=== PATIENT | male | born 1955 | race American Indian/Alaskan Native ===

== ENCOUNTER 2020-03-07 14:38 | Outpatient (REF) | payer MEDICARE, SELFPAY | END 2020-03-07 14:39 | disposition home or self-care (01) | LOC: HO.LAB 14:38 | PROVIDERS: Visit Provider Psychiatry & Neurology Neurology | DX: Q85.1 Tuberous sclerosis (principal) | CPT/HCPCS: 80185 ==

== ENCOUNTER 2021-05-10 16:09 | Outpatient (REF) | payer MEDICARE, SELFPAY ==
--- NOTE | ~2021-05-10 | XR_ITS ---
EXAMINATION: XR LUMBOSACRAL SPINE WITH OBLIQUES CLINICAL INFORMATION: Lower back pain. COMPARISON: 06/08/2019 TECHNIQUE: Lumbar spine, 5 views FINDINGS: The lumbar vertebra have well preserved height and alignment. No fracture or subluxation. The disc spaces are maintained with exception of chronic lvfj-ar-iawkovle disc space loss and anterior vertebral osteophyte formation at L5-S1. Again noted are chronic sclerotic foci of the visualized bones, likely secondary to the patient's tuberous sclerosis. Note that multiple sclerotic foci with the appearance of bone islands can be seen on prior CT images from 07/16/2006. Soft tissues are unremarkable. XR/XR lumbar spine 4V min IMPRESSION: * No evidence of fracture or malalignment of the lumbosacral spine. * Chronic mild-to moderate degenerative disc space loss at the L5-S1 level.
[2021-05-10 16:29] LABS: MANUAL DIFF FLAG NO
[2021-05-10 16:48] LABS: Basophils Percent Auto 0.4 % (0-2); Eosinophils Absolute Auto 0.1 X10*3/uL (0.0-0.4); Eosinophils Percent Auto 1.5 % (0-4); Hematocrit 36.7 % (42.0-52.0); Hemoglobin 12.6 g/dl (14.0-18.0); Imm Gran Abs Auto 0.02 X10*3/uL (0.00-0.03); Imm Gran Pct Auto 0.3 % (0.0-0.4); Lymphocytes Absolute Auto 1.8 X10*3/uL (1.2-4.9); Lymphocytes Percent Auto 25.1 % (20-40); Mean Corpuscular HGB Conc 34.3 g/dl (31.0-36.0); Mean Corpuscular Hemoglobin 31.4 pg (27.0-33.0); Mean Corpuscular Volume 91.5 fL (80.0-98.0); Mean Platelet Volume 9.8 fL (9.4-12.4); Monocytes Absolute Auto 0.6 X10*3/uL (0.1-1.2); Monocytes Percent Auto 7.7 % (2-11); Neutrophils Absolute Auto 4.7 x10*3/uL (2.0-8.3); Platelet Count 244 X10*3/uL (160-400); Red Blood Count 4.01 X10*6/uL (4.60-5.80); Red Cell Distribution Width 12.1 % (11.0-16.0); White Blood Count 7.2 X10*3/uL (4.8-10.8)
[2021-05-10 17:01] LABS: Alanine Aminotransferase 15 U/L (0-40); Albumin Level 4.5 g/dL (3.5-5.0); Alkaline Phosphatase 103 U/L (39-117); Anion Gap 13 (12-20); Aspartate Amino Transferase 17 U/L (5-37); Bilirubin Total 0.5 mg/dL (0.0-1.0); Blood Urea Nitrogen 14 mg/dL (9-16); Calcium 9.5 mg/dL (8.4-10.2); Carbon Dioxide 25 mmol/L (22-29); Chloride 108 mmol/L (96-108); Cholesterol 202 mg/dL; Estimated Glomerular Filt Rate > 60; Glucose Fasting 84 mg/dL (60-99); HDL Cholesterol 49 mg/dL; LDL Cholesterol Calculated 131 mg/dl; Potassium 3.8 mmol/L (3.3-5.1); Sodium 142 mmol/L (135-145); Total Protein 7.3 g/dL (6.5-8.0); Triglycerides 112 mg/dL
[2021-05-10 17:21] LABS: Prostate Specific Antigen Scr 2.28 ng/mL (<0.05-4.0); TSH reflex Free T4 1.42 uIU/mL (0.32-4.0)
[2021-05-10 17:24] LABS: T4 Thyroxine 5.5 ug/dL (4.5-12.0)
[2021-05-10 17:36] LABS: Phenytoin Dilantin 14.1 ug/mL (10.0-20.0)
[2021-05-10 17:37] LABS: Folate 8.9 ng/mL (> or = 4.0); Vitamin B12 173 pg/mL (200-900)
[2021-05-10 17:43] LABS: Erythrocyte Sedimentation Rate 2 MM/HR (0-15)
[2021-05-10 18:22] LABS: Appearance Urine CLEAR; Color Urine YELLOW; Glucose Urine UA NEG (NEG); Leukocyte Esterase Urine NEG (NEG); Nitrite Urine NEG (NEG); Urine Blood NEG (NEG); Urine Ketones NEG (NEG); Urine Protein NEG (NEG-TRACE)
[2021-05-12 17:37] LABS: Homocysteine 16.8 umol/L (<11.4)
[2021-05-13 15:31] LABS: Methylmalonic Acid 828 nmol/L (87-318)
== END 2021-05-10 16:10 | disposition home or self-care (01) ==
LOC: HO.XRAY 16:09
PROVIDERS: PCP Nurse Practitioner Family; Visit Provider Psychiatry & Neurology Neurology
DX: Z00.00 Encounter for general adult medical examination without abnormal findings (principal); Q85.1 Tuberous sclerosis; M54.40 Lumbago with sciatica, unspecified side; E53.8 Deficiency of other specified B group vitamins; Z12.5 Encounter for screening for malignant neoplasm of prostate
CPT/HCPCS: 36415; 72110; 80053; 80061; 80185; 81003; 82550; 82607; 82746; 83090; 83921; 84153; 84436; 84443; 85025; 85652

== ENCOUNTER 2022-11-06 15:48 | Outpatient (REF) | payer MEDICARE, SELFPAY ==
--- NOTE | ~2022-11-06 | XR_ITS ---
EXAMINATION: XR FOOT, LEFT CLINICAL INFORMATION: Swelling in second and third digit COMPARISON: None available. TECHNIQUE: AP, lateral, and oblique views of the left foot. FINDINGS: There is also soft tissue swelling of the forefoot. The bones are diffusely demineralized. There is periosteal reaction along the shaft of the second metatarsal which could represent a healing stress fracture. The third toe is flexed limiting evaluation of the toe. There is cockup deformity of one of the toes, likely the third toe. Small Achilles enthesophyte is noted. XR/XR foot LT 2V IMPRESSION: 1. Periosteal reaction along the shaft of the second metatarsal could represent a healing stress fracture. 2. Cockup deformity of one of the toes, likely the third toe. At the time of this dictation, PSA service contacted to alert the referring physician of critical findings.
[2022-11-06 16:06] LABS: MANUAL DIFF FLAG NO
[2022-11-06 17:05] LABS: Basophils Percent Auto 0.4 % (0-2); Eosinophils Absolute Auto 0.2 X10*3/uL (0.0-0.4); Eosinophils Percent Auto 2.3 % (0-4); Hematocrit 34.1 % (42.0-52.0); Hemoglobin 11.5 g/dl (14.0-18.0); Imm Gran Abs Auto 0.02 X10*3/uL (0.00-0.03); Imm Gran Pct Auto 0.3 % (0.0-0.4); Lymphocytes Absolute Auto 1.9 X10*3/uL (1.2-4.9); Lymphocytes Percent Auto 26.3 % (20-40); Mean Corpuscular HGB Conc 33.7 g/dl (31.0-36.0); Mean Corpuscular Hemoglobin 31.1 pg (27.0-33.0); Mean Corpuscular Volume 92.2 fL (80.0-98.0); Mean Platelet Volume 10.2 fL (9.4-12.4); Monocytes Absolute Auto 0.7 X10*3/uL (0.1-1.2); Monocytes Percent Auto 9.1 % (2-11); Neutrophils Absolute Auto 4.6 x10*3/uL (2.0-8.3); Neutrophils Percent Auto 61.6 % (45-73); Platelet Count 208 X10*3/uL (160-400); Red Cell Distribution Width 12.5 % (11.0-16.0); White Blood Count 7.4 X10*3/uL (4.8-10.8)
[2022-11-06 17:37] LABS: Appearance Urine Clear; Color Urine Yellow; Glucose Urine UA Negative (Negative); Leukocyte Esterase Urine Negative (Negative); Nitrite Urine Negative (Negative); PH 5.5 (5.0-9.0); Specific Gravity - Urine 1.025 (1.005-1.025); Urine Blood Negative (Negative); Urine Ketones Trace mg/dL (Negative); Urine Protein Trace mg/dL (Neg-Trace)
[2022-11-06 17:46] LABS: Alanine Aminotransferase 12 U/L (0-40); Alkaline Phosphatase 111 U/L (39-117); Anion Gap 10 (12-20); Aspartate Amino Transferase 14 U/L (5-37); Bilirubin Total 0.2 mg/dL (0.0-1.0); Blood Urea Nitrogen 17 mg/dL (9-16); Calcium 9.3 mg/dL (8.4-10.2); Carbon Dioxide 29 mmol/L (22-29); Chloride 109 mmol/L (96-108); Cholesterol 174 mg/dL; Estimated Glomerular Filt Rate > 60; Glucose Fasting 96 mg/dL (60-99); HDL Cholesterol 51 mg/dL; LDL Cholesterol Calculated 95 mg/dl; Potassium 3.8 mmol/L (3.3-5.1); Sodium 144 mmol/L (135-145); Total Protein 6.8 g/dL (6.5-8.0); Triglycerides 142 mg/dL
[2022-11-06 18:15] LABS: Folate 18.9 ng/mL (> or = 4.0); Prostate Specific Antigen Scr 2.94 ng/mL (<0.05-4.0); TSH reflex Free T4 1.28 uIU/mL (0.32-4.0); Vitamin B12 203 pg/mL (200-900)
== END 2022-11-06 15:49 | disposition home or self-care (01) ==
LOC: HO.LAB 15:48
PROVIDERS: PCP Nurse Practitioner Family; Visit Provider Psychiatry & Neurology Neurology
DX: Z00.00 Encounter for general adult medical examination without abnormal findings (principal); Z12.5 Encounter for screening for malignant neoplasm of prostate; E53.8 Deficiency of other specified B group vitamins; R56.9 Unspecified convulsions; Q85.1 Tuberous sclerosis; M77.42 Metatarsalgia, left foot; D64.9 Anemia, unspecified
CPT/HCPCS: 36415; 73620; 80053; 80061; 81003; 82607; 82746; 84153; 84443; 85025

== ENCOUNTER 2022-12-25 12:07 | Outpatient (REF) | payer MEDICARE, SELFPAY ==
--- NOTE | ~2022-12-25 | CT_ITS ---
EXAMINATION: CT head/brain wo/w IV con CLINICAL INFORMATION: TUBEROUS SCLEROSIS AND SEIZURES COMPARISON: CT head 02/11/2013 and MRI 02/02/2020 TECHNIQUE: Contiguous axial imaging was performed from the skull base to vertex without intravenous contrast. Sagittal and coronal reformatted images were obtained. This CT examination was performed using dose optimization techniques as appropriate, variously including the following: * Automated exposure control * Adjustment of mA and/or kV according to patient size (this includes techniques or standardized protocols for targeted exams where dose is matched to indication/reason for exam; i.e. extremities or head) Use of iterative reconstruction technique DLP: 1703.84 mGy-cm FINDINGS: Multiple scattered and partially calcified cortical/subcortical tubers as well as subependymal nodules related to reported history of tuberous sclerosis are better characterized on prior brain MRI. Please note that contrast-enhanced MRI would be more sensitive modality for enlarging subependymal nodules/development of a subependymal giant cell astrocytoma. Stable plaque-like thickening along the left high parietal scalp, which may reflect a fibrous cephalic plaque related to tuberous sclerosis complex. Increased size of a 1.4 cm centrally hypodense nodule within the right supraorbital paramedian scalp/right aspect of the nasal bridge, previously 0.5 cm, with bulging of the overlying skin contour may reflect a dermatological manifestation of tuberous sclerosis complex and can be correlated with direct inspection. The ventricles are stable in caliber without significant volume loss or hydrocephalus. No territorial loss of mitchell-white differentiation. No acute intracranial hemorrhage or extra-axial fluid collection. No significant mass effect, or herniation pattern. The orbits are grossly normal. Scattered mild paranasal sinus mucosal disease with retention cysts in the right maxillary sinus alveolar recess. Redemonstrated suspected 1.5 cm incisive canal cyst. Degenerative changes of the bilateral temporomandibular joints. Scattered sclerotic foci throughout the osseous structures, presumably related to tuberous sclerosis complex CT/CT head/brain wo/w IV con IMPRESSION: No acute intracranial abnormality. Chronic stigmata of tuberous sclerosis as above, better characterized on prior brain MRI. Please note that contrast-enhanced MRI would be more sensitive modality for enlarging subependymal nodules/development of a subependymal giant cell astrocytoma. Increased size of a 1.4 cm centrally hypodense nodule within the right supraorbital paramedian scalp/right aspect of the nasal bridge, previously 0.5 cm, may reflect a dermatological manifestation of tuberous sclerosis complex and can be correlated with direct inspection.
[2022-12-25 12:37] LABS: Blood Urea Nitrogen 19 mg/dL (9-16); Estimated Glomerular Filt Rate > 60
[2022-12-25] MEDS: iohexoL 350 MG/ML 100 ML INFUS..BTL 85 ML IV (13:42)
== END 2022-12-25 12:08 | disposition home or self-care (01) ==
LOC: HO.CT 12:07
PROVIDERS: PCP Nurse Practitioner Family; Visit Provider Psychiatry & Neurology Neurology
DX: R56.9 Unspecified convulsions (principal)
CPT/HCPCS: 36415; 70470; 82565; 84520; Q9967

== ENCOUNTER 2023-01-07 08:57 | Outpatient (AMB) | payer MEDICARE, SELFPAY ==
[2023-01-07 09:02] VITALS: BP 128/70; PULSE 73; O2SAT 97; BMI 26.7
--- NOTE | 2023-01-07 09:02 | A.OFFPC_ITS ---
Vital Signs 01/07/23 09:02 Height 5 ft 10 in Weight 186 lb BMI 26.7 BP 128/70 Blood Pressure Location Rt brachial Position Sitting Pulse 73 Pulse Source Pulse Oximeter Pulse Oximetry (%) 97 Oxygen Delivery Method Room Air Intake Visit Reasons: f/u reschedule from 01/02 Allergies No Known Allergies Allergy (Verified 01/07/23 09:05) Medication List - Last Reconciled 01/07/23 by LIS Gutiérrez-FAHAD finasteride 5 mg PO DAILY folic acid 1 mg PO DAILY lisinopril 10 mg PO DAILY 90 days rddajfpo-zmm-ppabg-vit K-lycop 400-20-370 mcg (One-A-Day Men's 50 Plus (with vitamin K)) 1 tab PO DAILY phenytoin 50 mg PO QAM phenytoin sodium extended 100 mg PO TID tamsulosin 0.4 mg PO BEDTIME Tobacco use date assessed: 01/07/23 Fall risk assessment: 2 + Falls in past year Last assessed Fall Risk: 01/07/23 Dental Screening Dental Screen Date: 01/07/23 Did you have a dental visit in the last 12 months?: No Did you have a dental problem in the last 6 months where you did not have access to dental care?: No Was dental information given to patient?: Patient has dentist HPI f/u reschedule from 01/02 HPI Details Pt c/o some shortness of breath with exertion recently, after bringing trash outside. He denies any chest pain, cough, and dizziness. Will do an EKG in office. Will also order chest xr. Pt reports a large cystic lesion between his eyebrows. Will refer to general surgery. Pt follows up with neurology due to weakness in his lower extremities. [facility] Medical History (Updated 01/07/23 @ 09:26 by LIS Gutiérrez-FAHAD) Chronic radicular pain of lower back Excessive cerumen in both ear canals HTN (hypertension) Low vitamin B12 level Lumbar disc disease Seizure Tuberous sclerosis URI (upper respiratory infection) Social History Housing: Other (Lives with a Friend ) Patient Tobacco Use Status: Former Tobacco user Years Smoked: quit 1987 e-Cigarette/Vaping Use: Never Used Second Hand Smoke Exposure: No service: No Current occupational status: retired Cognitive needs: No Hearing needs: No Vision needs: No Questionnaire Thrive Questionnaire Date Thrive assessed: 07/02/22 LIVE-7 AMB Questionnaire LIVE-7 Date LIVE - 7 assessed: 07/02/22 Source: Developed by Drs. Ayden Terry, Praveena Broderick, Alexei Tinsley and colleagues, with an educational wilfrido from [employer]. Review of Systems Const Reports as per HPI Physical exam (Primary Care) Vital Signs: Last Vital Signs Pulse 73 01/07/23 09:02 BP 128/70 01/07/23 09:02 Pulse Ox 97 01/07/23 09:02 Oxygen Delivery Method Room Air 01/07/23 09:02 BMI result Body Mass Index 26.7 Tobacco/Smoking Status: Tobacco use Status Tobacco use date assessed 01/07/23 01/07/23 09:09 Patient Tobacco Use Status Former Tobacco user 01/07/23 09:02 e-Cigarette/Vaping Use Never Used 01/07/23 09:02 Thrive Assessment: Date of Thrive Assessment Date Thrive assessed 07/02/22 01/07/23 09:02 Const General: cooperative Orientation/consciousness: patient oriented x3 Limitations: ambulation with cane Resp Effort & Inspection: normal respiratory effort Auscultation: clear to auscultation bilaterally Cardio Rate: regular rate Rhythm: regular rhythm Heart sounds: S1 normal heart sound present and S2 normal heart sound present Skin Other: large cystic lesion between eyebrows Neuro General: patient oriented x3 Psych Appearance: grossly normal Mental Status: mental status grossly normal Speech and movement: Normal speech and movement present Affect: normal affect Attitude: cooperative Thought process: Normal thought process present Thought content: Normal thought content present Insight: Good insight present (Psych) Judgement: Good judgement present (Psych) Assessment and Plan Assessment & Plan (1) Epidermoid cyst of face: Code(s): L72.0 - Epidermal cyst Plan: Referred to general surgery (2) SOB (shortness of breath): Code(s): R06.02 - Shortness of breath Plan The patient agreed to the use of a administrative medical director for this encounter. Scribed for MARLENI Rivera by Lora Bermudez administrative medical director, on 01/07/2023 at 09:15 EST. Orders: Orders XR chest 2V Today R06.02 - Shortness of breath AMB EKG-In Office Today R06.02 - Shortness of breath Referrals General Surgery Referral L72.0 - Epidermal cyst Coding Level of Care Code Est Pt Level 3 (41919) Diagnoses Epidermoid cyst of face L72.0 SOB (shortness of breath) R06.02
== END 2023-01-07 09:41 | disposition home or self-care (01) ==
PROVIDERS: PCP Nurse Practitioner Family; Visit Provider Nurse Practitioner Family
DX: L72.0 Epidermal cyst (principal); R06.02 Shortness of breath
CPT/HCPCS: 99213

== ENCOUNTER 2023-01-07 09:43 | Outpatient (REF) | payer MEDICARE, SELFPAY ==
--- NOTE | ~2023-01-07 | XR_ITS ---
EXAMINATION: XR CHEST CLINICAL INFORMATION: Shortness of breath. COMPARISON: Chest radiographs dated 03/30/2009. TECHNIQUE: 2 views of the chest were obtained. FINDINGS: No significant abnormality is noted involving the heart, lungs, mediastinum, bony thorax or soft tissues. XR/XR chest 2V IMPRESSION: No acute cardiopulmonary process.
== END 2023-01-07 09:44 | disposition home or self-care (01) ==
LOC: HO.HMGCX 09:43
PROVIDERS: PCP Nurse Practitioner Family; Visit Provider Nurse Practitioner Family
DX: R06.02 Shortness of breath (principal)
CPT/HCPCS: 71046

== ENCOUNTER 2023-07-03 14:52 | Outpatient (REF) | payer OTHER, SELFPAY ==
[2023-07-03 15:48] LABS: Phenytoin Dilantin 14.3 ug/mL (10.0-20.0)
== END 2023-07-03 14:53 | disposition home or self-care (01) ==
LOC: HO.LAB 14:52
PROVIDERS: PCP Nurse Practitioner Family; Visit Provider Psychiatry & Neurology Neurology
DX: G40.909 Epilepsy, unspecified, not intractable, without status epilepticus (principal)
CPT/HCPCS: 36415; 80185

== ENCOUNTER 2023-10-24 10:01 | Outpatient (AMB) | payer OTHER, SELFPAY ==
--- NOTE | 2023-10-24 10:06 | MHC.PC.OV ---
Vital Signs 10/24/23 10:09 10/24/23 10:28 Height 5 ft 10 in Weight 182 lb BMI 26.1 BP 160/80 H 138/80 Blood Pressure Location Rt brachial Rt brachial Position Sitting Sitting Pulse 76 Pulse Source Pulse Oximeter Pulse Oximetry (%) 97 Oxygen Delivery Method Room Air Intake Visit Reasons: 6 month f/u Allergies No Known Allergies Allergy (Verified 10/24/23 12:09) Medication List - Last Reconciled 10/24/23 by MARLENI Gutiérrez finasteride 5 mg PO DAILY folic acid 1 mg PO DAILY lisinopril 20 mg PO DAILY 90 days kacwrxds-hso-clmln-vit K-lycop 400-20-370 mcg (One-A-Day Men's 50 Plus (with vitamin K)) 1 tab PO DAILY phenytoin 50 mg PO QAM phenytoin sodium extended 100 mg PO TID tamsulosin 0.4 mg PO BEDTIME Tobacco use date assessed: 01/07/23 Dental Screening Dental Screen Date: 10/24/23 Did you have a dental visit in the last 12 months?: No Did you have a dental problem in the last 6 months where you did not have access to dental care?: No Was dental information given to patient?: No HPI 6 month f/u HPI Details HTN: Blood pressure is slightly elevated, managed with lisinopril 10mg. Will increase lisinopril from 10mg to 20mg. Denies chest pain, shortness of breath, headache, dizziness, and blurred vision. Encouraged pt to get labs drawn. Pt reports that yesterday he started seeing black dots in his vision. He reports going to sleep and later woke up with normal vision. Pt has a hx of seizures and is not sure if this was seizure activity. Pt is following up with neurology. [facility] Medical History (Updated 10/24/23 @ 10:35 by MARLENI Gutiérrez) Prostate cancer Chronic radicular pain of lower back Lumbar disc disease Excessive cerumen in both ear canals Low vitamin B12 level Seizure HTN (hypertension) URI (upper respiratory infection) Tuberous sclerosis Social History Housing: Other (Lives with a Friend ) Patient Tobacco Use Status: Former Tobacco user Years Smoked: quit 1987 e-Cigarette/Vaping Use: Never Used Second Hand Smoke Exposure: No service: No Current occupational status: retired Cognitive needs: No Hearing needs: No Vision needs: No Questionnaire PHQ-9 Over the last 2 weeks, how often have you been bothered by any of the following problems? 31076 - PHQ-9 Billing: Patient declined-do not bill Source: Developed by Praveena Pendleton Kurt Kroenke and colleagues, with an educational wilfrido from [employer] Thrive Questionnaire Date Thrive assessed: 07/02/22 LIVE-7 AMB Questionnaire LIVE-7 Date LIVE - 7 assessed: 07/02/22 Source: Developed by Praveena Pendleton, Alexei Tinsley and colleagues, with an educational wilfrido from [employer] LIVE-7 Assessment Billing LIVE-7 Assessment Tool: pt declined-do not bill Review of Systems Const Reports as per HPI Physical exam (Primary Care) Vital Signs: Last Vital Signs Pulse 76 10/24/23 10:09 BP 160/80 H 10/24/23 10:09 Pulse Ox 97 10/24/23 10:09 Oxygen Delivery Method Room Air 10/24/23 10:09 BMI result Body Mass Index 26.1 Tobacco/Smoking Status: Tobacco use Status Tobacco use date assessed 01/07/23 10/24/23 10:07 Patient Tobacco Use Status Former Tobacco user 10/24/23 10:07 e-Cigarette/Vaping Use Never Used 10/24/23 10:07 Thrive Assessment: Date of Thrive Assessment Date Thrive assessed 07/02/22 10/24/23 10:07 Const General: cooperative Orientation/consciousness: patient oriented x3 Resp Effort & Inspection: normal respiratory effort Auscultation: clear to auscultation bilaterally Cardio Rate: regular rate Rhythm: regular rhythm Heart sounds: S1 normal heart sound present and S2 normal heart sound present Neuro General: patient oriented x3 Extrem Right lower extremity: no edema Left lower extremity: no edema Psych Appearance: grossly normal Mental Status: mental status grossly normal Speech and movement: Normal speech and movement present Affect: normal affect Attitude: cooperative Thought process: Normal thought process present Thought content: Normal thought content present Insight: Good insight present (Psych) Judgement: Good judgement present (Psych) Assessment and Plan Assessment & Plan (1) HTN (hypertension): Code(s): I10 - Essential (primary) hypertension Plan: Increasing lisinopril from 10mg to 20mg (2) History of seizures: Code(s): Z87.898 - Personal history of other specified conditions Plan: Following up with neurology Plan The patient agreed to the use of a medical assistant float for this encounter. Scribed for LIS Rivera-FAHAD by Lora Bermudez medical assistant float, on 10/24/2023 at 10:20 EST. Orders: Orders Lipid Panel Today I10 - Essential (primary) hypertension Comprehensive [place]. Panel Fast Today I10 - Essential (primary) hypertension Medications: Changed From lisinopril 10 mg PO DAILY 90 days 90 tabs 1RF To lisinopril 20 mg PO DAILY 90 days 90 tabs 1RF Coding Level of Care Code Est Pt Level 3 (45417) Diagnoses HTN (hypertension) I10 History of seizures Z87.898
[2023-10-24 10:09] VITALS: BP 160/80; PULSE 76; O2SAT 97; BMI 26.1
[2023-10-24 10:28] VITALS: BP 138/80
== END 2023-10-24 10:38 | disposition home or self-care (01) ==
LOC: HO.HMGC 10:01
PROVIDERS: PCP Nurse Practitioner Family; Visit Provider Nurse Practitioner Family
DX: I10 Essential (primary) hypertension (principal); Z87.898 Personal history of other specified conditions
CPT/HCPCS: 99213

== ENCOUNTER 2023-11-18 10:56 | Outpatient (AMB) | payer OTHER, SELFPAY ==
--- NOTE | 2023-11-18 11:06 | AM.OFFWIN_ITS ---
Intake Vital Signs 11/18/23 11:07 Height 5 ft 10 in Weight 181 lb BMI 26.0 BP 140/70 H Blood Pressure Location Lt brachial Position Sitting Pulse 68 Pulse Source Pulse Oximeter Temp 97.3 F Temp Source Temporal Artery Scan Pulse Oximetry (%) 98 Oxygen Delivery Method Room Air Intake Visit Reasons: EP Right foot pain/swelling Intake Note: pt is here today for rt foot pain swelling started 1 week ago Patient Tobacco Use Status: Former Tobacco user Allergies No Known Allergies Allergy (Verified 11/18/23 11:25) Do you need a note to return to daycare/school/sports/work: No HPI HPI Comments History of Present Illness Details Patient is a 68-year-old male who uses a cane at baseline presenting with 5 days of right foot swelling and pain. He states 5 days ago, he was standing at the counter and he is unsure exactly what happened but thinks his leg gave in any probably twisted his ankle. He was able to walk on it but sat down for a little while and noticed it was very swollen. He has been using ice and cold water since then but he states the pain is not improving. He states the swelling has gone down. He is also asking for an upright walker because he does not think his cane is enough to support him at this point. [facility] Medical History (Updated 11/18/23 @ 12:04 by Bridgette Morse PA-C) Prostate cancer Chronic radicular pain of lower back Lumbar disc disease Excessive cerumen in both ear canals Low vitamin B12 level Seizure HTN (hypertension) URI (upper respiratory infection) Tuberous sclerosis Social History Housing: Other (Lives with a Friend ) Patient Tobacco Use Status: Former Tobacco user Years Smoked: quit 1987 e-Cigarette/Vaping Use: Never Used Second Hand Smoke Exposure: No service: No Current occupational status: retired Cognitive needs: No Hearing needs: No Vision needs: No Review of Systems Const All systems reviewed & are unremarkable except as noted in HPI and below Physical Exam Vital Signs: Last Vital Signs Temp 97.3 F 11/18/23 11:07 Pulse 68 11/18/23 11:07 BP 140/70 H 11/18/23 11:07 Pulse Ox 98 11/18/23 11:07 Oxygen Delivery Method Room Air 11/18/23 11:07 BMI result Body Mass Index 26.0 Const General: cooperative, healthy appearing, comfortable, no acute distress and well developed Orientation/consciousness: patient oriented x3 Limitations: ambulation with cane Eyes General: appearance normal, both eyes and all related structures Resp Effort & Inspection: normal respiratory effort and able to speak in complete sentences Neuro General: patient oriented x3 Extrem Right lower extremity: ankle (and right foot) Details: tenderness, swelling, normal ROM and ecchymosis (lateral ankle); no unusual warmth, no abrasions, no lacerations, no foreign bodies, no penetrating wound and achilles tendon exam normal Assessment & Plan Assessment & Plan (1) Right ankle sprain: Code(s): S93.401A - Sprain of unspecified ligament of right ankle, initial encounter Qualifiers: Encounter type: initial encounter Involved ligament of ankle: anterior talofibular ligament Qualified Code(s): S93.491A - Sprain of other ligament of right ankle, initial encounter Plan: Will get x-ray to rule out any fracture though unlikely with mechanism of injury. Advised RICE and wrapped with Geo bandage. Send note to PCP for ?upr ight walker ?. Offered patient crutches but he declined stating he was fine walking with his cane. Plan see above Orders: Orders XR ankle RT min 3V Today S93.491A - Sprain of other ligament of right ankle, initial encounter Coding Level of Care Code Est Pt Level 4 (24231) Diagnoses Sprain of anterior talofibular ligament of right ankle, initial encounter S93 .491A Encounter type: initial encounter Involved ligament of ankle: anterior talofibular ligament
[2023-11-18 11:07] VITALS: BP 140/70; PULSE 68; TEMP 36.3; O2SAT 98; BMI 26.0
== END 2023-11-18 12:32 | disposition home or self-care (01) ==
PROVIDERS: PCP Nurse Practitioner Family; Visit Provider Physician Assistant
DX: S93.491A Sprain of other ligament of right ankle, initial encounter (principal)
CPT/HCPCS: 99213

== ENCOUNTER 2023-11-18 12:06 | Outpatient (REF) | payer OTHER, SELFPAY ==
--- NOTE | ~2023-11-18 | XR_ITS ---
EXAMINATION: XR ANKLE, RIGHT CLINICAL INFORMATION: Right ankle ligament sprain. COMPARISON: None available. TECHNIQUE: AP, lateral, and mortise views of the right ankle. FINDINGS: Medial tibial stabilization plate with multiple fixation screws. Additional medial malleolar and tibial plafond orthopedic screws. No hardware fracture. No perihardware lucency to suggest loosening or infection. There appears to be a healed medial malleolar fracture. No acute fracture or dislocation. The ankle mortise is maintained. Moderate tibiotalar joint space narrowing with subchondral sclerosis and marginal osteophytes. No discrete talar osteochondral lesion. Small plantar and dorsal calcaneus spurs. Corticated ossification along the dorsal aspect of the navicular head measuring up to 0.5 cm which could represent a remote, unfused fracture fragment. Prominent circumferential soft tissue swelling. XR/XR ankle RT min 3V IMPRESSION: 1. Medial tibial ORIF without evidence of complication. Healed medial malleolar fracture. 2. Moderate tibiotalar osteoarthritis. 3. Prominent circumferential soft tissue swelling without acute fracture or dislocation. 4. Small plantar and dorsal calcaneus spurs. Corticated ossification along the dorsal aspect of the navicular head measuring up to 0.5 cm which could represent a remote, unfused fracture fragment.
== END 2023-11-18 12:07 | disposition home or self-care (01) ==
LOC: HO.HMGCX 12:06
PROVIDERS: PCP Nurse Practitioner Family; Visit Provider Physician Assistant
DX: S93.491A Sprain of other ligament of right ankle, initial encounter (principal)
CPT/HCPCS: 73610

== ENCOUNTER 2024-01-01 14:10 | Outpatient (REF) | payer OTHER, SELFPAY ==
[2024-01-01 16:24] LABS: Phenytoin Dilantin 18.3 ug/mL (10.0-20.0)
== END 2024-01-01 14:11 | disposition home or self-care (01) ==
LOC: HO.LAB 14:10
PROVIDERS: PCP Nurse Practitioner Family; Visit Provider Registered Nurse
DX: G40.909 Epilepsy, unspecified, not intractable, without status epilepticus (principal)
CPT/HCPCS: 36415; 80185

== ENCOUNTER 2024-03-24 17:24 | Inpatient (IN) | payer MEDICARE, SELFPAY ==
[2024-03-24] VITALS (8 sets, daily range): BP systolic 125–145; BP diastolic 64–79; PULSE 82–104; RESP 16–18; TEMP 36.5–37.4; O2SAT 95–100; BMI 26.6
--- NOTE | ~2024-03-24 | XR_ITS ---
EXAMINATION: XR CHEST CLINICAL INFORMATION: Dizziness, fall, weak COMPARISON: None available. TECHNIQUE: 2 views of the chest were obtained. FINDINGS: No significant abnormality is noted involving the heart, lungs, mediastinum, bony thorax or soft tissues. XR/XR chest 2V IMPRESSION: Unremarkable examination. Electronically signed by: Robert Garcia DO 03/24/2024 09:50 PM EDT RP
--- NOTE | ~2024-03-24 | CT_ITS ---
EXAMINATION: CT HEAD WITHOUT CONTRAST CT FACIAL BONES WITHOUT CONTRAST CT CERVICAL SPINE WITHOUT CONTRAST CLINICAL INFORMATION: Fall. Head injury. History of tuberous sclerosis. COMPARISON: CT head from 12/25/2022. TECHNIQUE: Imaging was performed from the skull base to vertex without intravenous administration of contrast. In addition, helical noncontrast CT imaging was acquired through the cervical spine and facial bones and source images were reviewed along with axial reconstructions and sagittal and coronal MPRs. This CT examination was performed using dose optimization techniques as appropriate, variously including the following: *Automated exposure control. *Adjustment of mA and/or kV according to patient size (this includes techniques or standardized protocols for targeted exams where dose is matched to indication/reason for exam; i.e. extremities or head). *Use of iterative reconstruction technique. DLP: 1544 mGy-cm FINDINGS: Head: There is no evidence of acute intracranial hemorrhage or edematous territorial infarction. Cohen-white matter differentiation is preserved. A few foci of hypoattenuation in the periventricular and deep white matter are consistent with mild microangiopathy. Chronic coarse calcifications scattered throughout the bilateral cerebral hemispheres. The ventricles are normal in morphology and size. No evidence for obstructive hydrocephalus. No abnormal mass effect or midline shift. No extra-axial fluid collections. Small subgaleal hematoma along the left posterior vertex, measuring up to 0.2 cm in depth. No associated acute osseous abnormalities. Persistent metopic suture. Multifocal small sclerotic foci throughout the osseous calvarium. Maxillofacial Bones: Moderate edema/hematoma along the nasal bridge. Minimally displaced anterior left nasal bone fracture. No evidence of additional maxillofacial bone fractures. The zygomatic arches remain intact. The nasal septum remains midline. No evidence of mandibular or maxillary fracture. The mandibular condyles remain well-seated in their respective temporal articular grooves. Mild degenerative arthropathy of the temporomandibular joints. Normal appearance of the intraconal and extraconal fat. No evidence of traumatic injury to the extraocular musculature or globes. Mild mucosal thickening of the paranasal sinuses. The mastoid air cells and middle ear cavities are clear. No layering fluid collections. The patient is edentulous. 1.5 cm incisive canal stenosis. Cervical Spine: The atlantooccipital and atlantoaxial articulations remain well aligned. Moderate degenerative arthropathy of the atlantodental articulation. Mild reversal the normal cervical lordosis. Otherwise, there is anatomic alignment of the vertebral bodies and posterior elements. No evidence of acute fracture or subluxation. The vertebral body heights are maintained. Advanced degenerative disc disease from C4-C7. Moderate degenerative disc disease at all additional levels. Facet and uncovertebral joint arthropathy leads to osseous encroachment on the neural foramina from C3-T1. Chronic patchy sclerotic lesions throughout the osseous structures. There is no prevertebral soft tissue swelling. Multiple subcentimeter hypoattenuating nodules in the thyroid gland (no follow-up imaging recommended based on current guidelines at the time of examination). The remaining cervical soft tissues are within normal limits. The lung apices demonstrate no abnormalities. CT/CT cervical spine wo IV con IMPRESSION: 1. No evidence of acute intracranial hemorrhage or edematous territorial infarction. Mild underlying microangiopathy. 2. No evidence of acute fracture or traumatic subluxation of the cervical spine. 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 3. Minimally displaced anterior left nasal bone fracture. Moderate edema/hematoma along the nasal bridge. 4. Small left posterior scalp hematoma without associated osseous abnormalities. 5. Chronic coarse calcifications scattered throughout the bilateral cerebral hemispheres. Chronic patchy sclerotic lesions throughout the osseous structures. Findings are suggestive of sequela of the patient's underlying tumor sclerosis. Electronically signed by: Sedrick Morales DO 03/24/2024 07:02 PM EDT
--- NOTE | ~2024-03-24 | US_ITS ---
EXAMINATION: US RETROPERITONEAL LIMITED (RENAL ONLY) CLINICAL INFORMATION: Sepsis. Urinary retention. Rule out hydronephrosis/abscess. COMPARISON: Ultrasound abdomen complete 01/20/2020; CT abdomen and pelvis dated 07/16/2006. TECHNIQUE: Real-time imaging of the kidneys. FINDINGS: RIGHT KIDNEY: 12.1 x 5.5 x 4.7 cm (SAG x AP x TRV). The kidney is normal in size, contour, and echogenicity. Renal cortical thickness is normal. No hydronephrosis. At the lower pole, a 6 mm nonobstructing calculus is seen. At the upper pole, a 2.4 x 1.6 x 2.0 cm, without associated color Doppler flow. On the ultrasound examination of 01/20/2020, this measures 2.2 x 2.4 x 2.4 cm. LEFT KIDNEY: 11.1 x 5.2 x 4.3 cm (SAG x AP x TRV). The kidney is normal in size, contour, and echogenicity. Renal cortical thickness is normal. No renal calculi or hydronephrosis. There are multiple benign, simple cysts, the largest at the lower pole measuring 1.0 cm these require no imaging follow-up. US/US renal BI IMPRESSION: 1. There is a continued stable right renal upper pole mass lesion. The interim stability of the ultrasound examination 01/20/[address] examination of 07/16/2006 suggests a benign etiology. 2. A 6 mm nonobstructing right lower pole calculus is seen. Electronically signed by: Maninder Dubose MD 03/26/2024 06:01 PM EDT
--- NOTE | 2024-03-24 17:36 | ED_ITS ---
HPI - Fall General Chief Complaint: Fall Stated Complaint: FALL, HIT NOSE ON DESK, VOMITING AFTER FALL Time Seen by Provider: 03/24/24 17:27 Source: patient and EMS Mode of arrival: EMS Limitations: no limitations History of Present Illness HPI Narrative: Patient is a 68-year-old male with past medical history of prostate cancer, chronic lumbar radiculopathy due to DJD, seizure disorder on phenytoin, hypertension, tuberous sclerosis who presents emergency department via EMS for evaluation. He reports that he got out of bed this afternoon to go and use the bathroom. He states ?I just got dizzy I guess and I fell?. Reports that he fell from a standing position striking his nose onto the corner of his desk and subsequently landing onto the floor. He had some bleeding from the nose that has since resolved. He denies any head strike or loss of consciousness. He denies the use of anticoagulants. He reports that he yelled out to his roommate to call 911 and he was ultimately brought to the emergency department. There was no reported him being postictal, he does not believe he seizure, no bladder bowel dysfunction, states he typically knows after he had a seizure. He denies any dizziness as this time, denies any chest pain shortness of breath or difficulty breathing. Related Data Home Medications ?Medication ?Instructions ?Recorded ?Confirmed phenytoin sodium extended 100 mg 100 mg PO TID 05/09/21 10/24/23 capsule folic acid 1 mg tablet 1 mg PO DAILY 05/02/22 10/24/23 tamsulosin 0.4 mg capsule 0.4 mg PO BEDTIME 05/02/22 10/24/23 amhcumrtuyai-pwv-yieug acid-vit 1 tab PO DAILY 07/02/22 10/24/23 K-lycop 400 mcg-20 mcg-370 mcg tablet (One-A-Day Men's 50 Plus (with vitamin K)) phenytoin 50 mg chewable tablet 50 mg PO QAM 01/07/23 10/24/23 Previous Rx's ?Medication ?Instructions ?Recorded lisinopril 20 mg tablet 20 mg PO DAILY 90 days #90 tabs 10/24/23 walker #1 ea 11/18/23 finasteride 5 mg tablet 5 mg PO DAILY #90 tabs 02/21/24 Allergies Allergy/AdvReac Type Severity Reaction Status Date / Time No Known Allergies Allergy Verified 03/24/24 17:38 Review of Systems 2 Review of Systems: Yes all other systems are reviewed and are negative [facility] Past Medical History Attestation statement: The following information was validated with the patient. Medical History Prostate cancer Chronic radicular pain of lower back Lumbar disc disease Excessive cerumen in both ear canals Low vitamin B12 level Seizure HTN (hypertension) URI (upper respiratory infection) Tuberous sclerosis Social History Social History Housing: Other (Lives with a Friend ) Patient Tobacco Use Status: Former Tobacco user Years Smoked: quit 1988 Smoked in Last 30 Days: No e-Cigarette/Vaping Use: Never Used Second Hand Smoke Exposure: No Use of substances other than those prescribed or required for medical reasons: No Advance Directives: No Advance Directives Information Provided: Yes Do you have a plan to hurt others: No Plan service: No Current occupational status: retired Cognitive needs: No Hearing needs: No Vision needs: No Physical Exam 2 Vital Signs: Vital Signs: Last Vital Signs Temp 99.3 F 03/24/24 23:31 Pulse 95 03/24/24 23:31 Resp 18 03/24/24 23:31 BP 125/74 03/24/24 23:31 Pulse Ox 97 03/24/24 23:31 O2 Del Method Room Air 03/24/24 23:31 BMI result Body Mass Index 26.6 Appearance: Alert.?Oriented to person, place and time. No acute distress.?Normal affect. Head: Normocephalic Eyes: Pupils equal, round and reactive to light. EOMI. Conjunctiva and sclera normal? No Marinelli sign noted. No raccoon eyes noted ENT: No septal hematoma, nares patent bilaterally. Dried blood at the external nares. External auditory canal normal tympanic membrane pearly mitchell and intact bilaterally. Dentition normal, no fractured teeth. No lesions or lacerations of oropharynx. Uvula midline. Moist mucous membranes. Neck: Normal inspection.? Neck supple.??No palpable tenderness, step-off, deformities. CVS: Heart sounds normal. Normal heart rate and rhythm.? Pulses normal.?? Respiratory: No respiratory distress.? Lung sounds clear to auscultation bilaterally?? Abdomen: Soft and non-tender. Normoactive bowel sounds. ?? Skin: Skin warm and dry.? Normal skin color.? .?? Extremities: No lower extremity edema.? Moving bilateral upper and lower extremities with full range of motion to all joints no reported pain with movement no obvious deformities, extremities all neurovascularly intact distally Neuro: Moves all extremities spontaneously. Sensation intact bilaterally. CN II- XII intact. No focal neuro deficits. Course Reevaluation(s) Reevaluation #1: CT of the head cervical spine without acute intracranial pathology or acute fracture/subluxation of the cervical spine. CT reveals minimally displaced anterior left nasal bone fracture, on evaluation does not have septal hematoma or acute abnormality, for which he will require to be referred to ENT. Upon re- evaluation he continues to be profoundly dizzy, upon standing is not able to really maintain his balance. He does use a cane at baseline, but regardless despite support continues to be balance. At bedside evaluation cerebellar function testing appears normal. Given his preceding dizziness prior to the fall times concerned that this may potentially be a cerebellar stroke versus exacerbated dizziness from concussion syndrome. Do not feel he is able to return home safely at this time. Urinalysis remains pending. Will speak with hospitalist for hospital admission Reevaluation #2: Urinalysis has resulted at this time, infection is suspected consistent with UTI covering with Rocephin. He has no hypotension, low suspicion for severe sepsis, lactic acid blood cultures to be obtained. Time: 23:06 Medications Administered Generic Name Dose Route Start Last Admin Trade Name Freq PRN Reason Stop Dose Admin Ceftriaxone Sodium 1 gm 03/24/24 23:00 03/25/24 00:15 Ceftriaxone Sodium 1 Gm Vial IVPUSH 1 gm Q24H JUDITH Administration Sodium Chloride 3 ml 03/25/24 00:00 03/25/24 00:11 0.9 % Sodium Chloride Flush 3 Ml Syringe IVFLUSH 3 ml QSHIFT JUDITH Administration Discontinued Medications Generic Name Dose Route Start Last Admin Trade Name Freq PRN Reason Stop Dose Admin Lactated Ringer's 1,000 mls @ 999 mls/hr 03/24/24 23:15 03/25/24 00:09 Lr IV 03/25/24 00:15 999 mls/hr .Q1H1M JUDITH Administration Medical Decision Making Medical Decision Making MDM Narrative: Patient is a 68-year-old male with past medical history of prostate cancer, chronic lumbar radiculopathy due to DJD, seizure disorder on phenytoin, hypertension, tuberous sclerosis presents emergency department for evaluation after a fall with head strike no reported loss of consciousness and preceding dizziness as per HPI. He is conscious alert and oriented x4, has no focal neurological deficits at this time, on examination he has no active bleeding from the nose, his nose is quite bulbous but does not appear to have acute swelling over the nasal bridge without obvious acute deformity no septal hematoma and no blood in the posterior oropharynx. CT of the head facial bones and cervical spine will be obtained to exclude ICH, SDH, fracture, subluxation. Given this preceding symptoms Will obtain CBC to evaluate for leukocytosis/ anemia, CMP and lipase to evaluate for abnormal electrolytes /abnormal renal function/ abnormal hepatic/biliary function, EKG and troponin to evaluate for ischemia/ACS, Assess orthostatic vital signs and Urinalysis. Differential Diagnosis Differential Diagnoses: The differential diagnosis associated with the presentation includes (See narrative above) Admission/Observation Consideration of admission/observation: Escalation of care including admission/observation considered (See narrative above) Lab Data [facility] Lab Attestation statement: I reviewed the patient's lab results. CBC reveals a leukocytosis of 16.4 which I suspect is likely inflammatory in nature, no reported recent symptoms to identify an obvious source of infection additionally obtaining urinalysis and CXR to exclude abnormality. CBC revealing a normocytic anemia not meet transfusion criteria, no thrombocytopenia. Electrolyte derangement. LFTs within range. High sensitive troponin within normal range, EKG without acute ischemic changes. BNP within normal range. 03/24/24 18:06 03/24/24 18:06 Labs: Lab Results 03/24/24 03/24/24 03/24/24 Range/Units 18:06 21:59 22:25 WBC 16.4 H (4.8-10.8) X10*3/uL RBC 3.83 L (4.60-5.80) X10*6/uL Hgb 12.1 L (14.0-18.0) g/dl Hct 34.4 L (42.0-52.0) % MCV 89.8 (80.0-98.0) fL MCH 31.6 (27.0-33.0) pg MCHC 35.2 (31.0-36.0) g/dl RDW 12.5 (11.0-16.0) % Plt Count 175 (160-400) X10*3/uL MPV 9.4 (9.4-12.4) fL Immature Gran % (Auto) 0.6 H (0.0-0.4) % Neut % (Auto) 89.1 H (45-73) % Lymph % (Auto) 3.6 L (20-40) % [place] % (Auto) 6.4 (2-11) % Eos % (Auto) 0.1 (0-4) % Baso % (Auto) 0.2 (0-2) % Lymph # (Auto) 0.6 L (1.2-4.9) X10*3/uL [place] # (Auto) 1.1 (0.1-1.2) X10*3/uL Eos # (Auto) 0.0 (0.0-0.4) X10*3/uL Baso # (Auto) 0.0 (0.0-0.2) X10*3/uL Abs Immat Gran (auto) 0.10 H (0.00-0.03) X10*3/uL Absolute Neuts (auto) 14.6 H (2.0-8.3) x10*3/uL Absolute Nucleated RBC 0.000 (0.0-0.012) X10*3/uL Nucleated RBC % (auto) 0.0 (0.0-0.2) /100WBC PT 12.0 (10.9-12.4) SEC INR 1.0 (0.9-1.1) Sodium 141 (135-145) mmol/L Potassium 3.7 (3.3-5.1) mmol/L Chloride 109 H (96-108) mmol/L Carbon Dioxide 23 (22-29) mmol/L Anion Gap 13 (12-20) BUN 16 (9-16) mg/dL Creatinine 1.01 (0.5-1.4) mg/dL Estim Creat Clear Calc 69.0 Estimated GFR > 60 POC Glucose 127 H (60-115) mg/dL Random Glucose 127 H (60-115) mg/dL Calcium 9.2 (8.4-10.2) mg/dL Magnesium 1.9 (1.6-2.6) mg/dL Total Bilirubin 0.4 (0.0-1.0) mg/dL AST 25 (5-37) U/L ALT 19 (0-40) U/L Alkaline Phosphatase 109 (39-117) U/L Troponin I High Sens 8.0 (<3.5-35.0) ng/L B-Natriuretic Peptide 21 (<100) pg/mL Total Protein 6.8 (6.5-8.0) g/dL Albumin 4.0 (3.5-5.0) g/dL Urine Color Yellow Urine Appearance Clear Urine pH 6.0 (5.0-9.0) Ur Specific [place] 1.020 (1.005-1.025) Urine Protein Trace (Neg-Trace) mg/dL Urine Glucose (UA) Negative (Negative) mg/dL Urine Ketones Negative (Negative) mg/dL Urine Blood Trace H (Negative) Urine Nitrite Positive H (Negative) Ur Leukocyte Esterase Moderate (2+) H (Negative) Urine RBC 3-5 H (0-2) /HPF Urine WBC >50 H (0-5) /HPF Ur Squamous Epith Cells 3-5 (0-2) /HPF Urine Bacteria 4+ (None Seen) Hyaline Casts 0-2 (0-2) /LPF Ethyl Alcohol < 10 mg/dL Independent Interpretation I performed an independent interpretation of an: EKG and Plain X-Ray (No consolidation or infiltrate) Interpretation: Rate: 88 Rhythm:? Normal sinus rhythm Normal P waves.? Normal NESTOR.?? Normal QRS complex.?? ST T wave :??No ST elevation, no ST depression qTC: 418 The study has been interpreted contemporaneously by me. Radiology Impression Discussion of test interpretation with radiology: I have reviewed the radiologist's reading. Radiologist Impression: CT/CT head/brain wo IV con IMPRESSION: 1. No evidence of acute intracranial hemorrhage or edematous territorial infarction. Mild underlying microangiopathy. 2. No evidence of acute fracture or traumatic subluxation of the cervical spine. 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 3. Minimally displaced anterior left nasal bone fracture. Moderate edema/hematoma along the nasal bridge. 4. Small left posterior scalp hematoma without associated osseous abnormalities. 5. Chronic coarse calcifications scattered throughout the bilateral cerebral hemispheres. Chronic patchy sclerotic lesions throughout the osseous structures. Findings are suggestive of sequela of the patient's underlying tumor sclerosis. XR/XR chest 2V IMPRESSION: Unremarkable examination. Independent Historian Clinical information obtained from an independent historian. History obtained from or confirmed by: EMS External Record Review External record reviewed: Outpatient record Chronic Conditions Patient?s care impacted by: Other (See narrative above) Critical Care Time Critical Care Time Critical Care Time: Yes Total Critical Care Time: 40 Attestation: I personally attest to this critical care time spent taking care of the patient exclusive of all other billable procedures was approximately 40 minutes including initial evaluation of patient, ordering tests, sepsis due to UTI, medical consultation, documentation, re-evaluation. Discharge Plan Discharge Clinical Impression: Fracture of nasal bone, Sepsis due to urinary tract infection, Dizziness Patient Disposition: Admitted As Inpatient
--- NOTE | 2024-03-24 17:55 | ECG_ITS ---
Test Reason : FALL Blood Pressure : / mmHG Vent. Rate : 088 BPM Atrial Rate : 088 BPM P-R Int : 172 ms QRS Dur : 098 ms QT Int : 346 ms P-R-T Axes : 040 066 046 degrees QTc Int : 418 ms Normal sinus rhythm Normal ECG No previous ECGs available Referred By: Galina Johnson Electronically Signed By:Amrit Martin
[2024-03-24 18:12] LABS: MANUAL DIFF FLAG NO
[2024-03-24 18:15] LABS: Basophils Percent Auto 0.2 % (0-2); Eosinophils Percent Auto 0.1 % (0-4); Hematocrit 34.4 % (42.0-52.0); Hemoglobin 12.1 g/dl (14.0-18.0); Imm Gran Pct Auto 0.6 % (0.0-0.4); Lymphocytes Absolute Auto 0.6 X10*3/uL (1.2-4.9); Lymphocytes Percent Auto 3.6 % (20-40); Mean Corpuscular HGB Conc 35.2 g/dl (31.0-36.0); Mean Corpuscular Hemoglobin 31.6 pg (27.0-33.0); Mean Corpuscular Volume 89.8 fL (80.0-98.0); Mean Platelet Volume 9.4 fL (9.4-12.4); Monocytes Absolute Auto 1.1 X10*3/uL (0.1-1.2); Monocytes Percent Auto 6.4 % (2-11); Neutrophils Absolute Auto 14.6 x10*3/uL (2.0-8.3); Neutrophils Percent Auto 89.1 % (45-73); Platelet Count 175 X10*3/uL (160-400); Red Blood Count 3.83 X10*6/uL (4.60-5.80); Red Cell Distribution Width 12.5 % (11.0-16.0); White Blood Count 16.4 X10*3/uL (4.8-10.8)
--- NOTE | 2024-03-24 18:18 | PC.NURSE ---
patient from home, poor historian, initially states he was getting out of bed and tells this RN he was going to the bathroom and fell and his his nose on his desk, bleeding controlled at this time, patient states initially he did not lose consciousnesses, later tells this RN that he is unsure if he passed out or not. states initially that it was a mechanical fall, then tells this RN that he got dizzy and fell, patient collared on arrival by EMS, complaining of some discomfort around the collar but otherwise no complaints to this RN. patient A&Ox4, neuros intact upon assessment, 18g IV placed in LAC by EMS. blood work completed by this RN. patient taken to CT.
[2024-03-24 18:31] LABS: Alanine Aminotransferase 19 U/L (0-40); Alkaline Phosphatase 109 U/L (39-117); Anion Gap 13 (12-20); Aspartate Amino Transferase 25 U/L (5-37); Bilirubin Total 0.4 mg/dL (0.0-1.0); Blood Urea Nitrogen 16 mg/dL (9-16); Calcium 9.2 mg/dL (8.4-10.2); Carbon Dioxide 23 mmol/L (22-29); Chloride 109 mmol/L (96-108); Estimated Glomerular Filt Rate > 60; Glucose Random 127 mg/dL (60-115); Magnesium 1.9 mg/dL (1.6-2.6); Potassium 3.7 mmol/L (3.3-5.1); Sodium 141 mmol/L (135-145); Total Protein 6.8 g/dL (6.5-8.0)
[2024-03-24 18:37] LABS: B Type Natriuretic Peptide 21 pg/mL (<100)
--- NOTE | 2024-03-24 19:10 | MHC.EDTECH ---
Unable to obtain orthostatic vital signs at this time due to patient being in c-collar
[2024-03-24 22:12] LABS: Appearance Urine Clear; Color Urine Yellow; Glucose Urine UA Negative (Negative); Leukocyte Esterase Urine Moderate (2+) (Negative); Nitrite Urine Positive (Negative); UMIC TRIGGER UACC YES; Urine Blood Trace (Negative); Urine Ketones Negative (Negative); Urine Protein Trace mg/dL (Neg-Trace)
[2024-03-24 22:16] LABS: Bacteria Urine 4+ (None Seen); Hyaline Casts Urine 0-2 /LPF (0-2); UACC Culture Trigger YES; WBC Urine >50 /HPF (0-5)
[2024-03-24 22:31] LABS: Ethanol < 10 mg/dL
[2024-03-24 22:31] LABS: Glucose, Whole Blood 127 mg/dL (60-115)
--- NOTE | 2024-03-24 23:06 | P.HPHOSP_ITS ---
History of Present Illness Date of Service: 03/24/24 Chief Complaint: Dizziness This is a 68-year-old male with pertinent history of tuberous sclerosis, seizure disorder, hypertension, prostate cancer, chronic lumbar radiculopathy due to degenerative disc disease who presents to the emergency department for evaluation of dizziness. Patient states when he tried to get up from a seated position, he got dizzy/lightheaded and fell. Patient was going to use the restroom. States over the last couple of days he has been having increased urinary frequency. Also noticed changed in odor of urine. Patient fell on his desk hitting his head. Did not lose consciousness. No jerking movement of extremities prior to the fall. No chest pain or palpitations prior to the fall. No fever, chills, chest pain, palpitations, shortness of breath, abdominal pain, changes in bowel habits. In the emergency department, patient was found to be septic and urine concerning for UTI. Review of Systems 2 Constitutional: Constitutional: Reports no additional constitutional complaints ENT: Reports dizziness Cardiovascular: Cardiovascular: Reports no additional cardiovascular complaints Respiratory: Respiratory: Reports no additional respiratory complaints Gastrointestinal: Gastrointestinal: Reports no additional gastrointestinal complaints Genitourinary: Genitourinary: Reports urinary frequency and Reports urinary urgency Neurologic: Reports dizziness [facility] Medical History Prostate cancer Chronic radicular pain of lower back Lumbar disc disease Excessive cerumen in both ear canals Low vitamin B12 level Seizure HTN (hypertension) URI (upper respiratory infection) Tuberous sclerosis Social History Housing: Other (Lives with a Friend ) Patient Tobacco Use Status: Former Tobacco user Years Smoked: quit 1988 Smoked in Last 30 Days: No e-Cigarette/Vaping Use: Never Used Second Hand Smoke Exposure: No Use of substances other than those prescribed or required for medical reasons: No Advance Directives: No Advance Directives Information Provided: Yes Do you have a plan to hurt others: No Plan service: No Current occupational status: retired Cognitive needs: No Hearing needs: No Vision needs: No Meds Allergies Allergy/AdvReac Type Severity Reaction Status Date / Time No Known Allergies Allergy Verified 03/24/24 17:38 Home Medications ?Medication ?Instructions ?Recorded ?Confirmed ?Last Taken ?Type phenytoin sodium extended 100 mg 100 mg PO TID 05/09/21 10/24/23 Unknown History capsule folic acid 1 mg tablet 1 mg PO DAILY 05/02/22 10/24/23 Unknown History tamsulosin 0.4 mg capsule 0.4 mg PO BEDTIME 05/02/22 10/24/23 Unknown History nvsxmpnmrbtf-aau-sznhn acid-vit 1 tab PO DAILY 07/02/22 10/24/23 Unknown History K-lycop 400 mcg-20 mcg-370 mcg tablet (One-A-Day Men's 50 Plus (with vitamin K)) phenytoin 50 mg chewable tablet 50 mg PO QAM 01/07/23 10/24/23 Unknown History Physical Exam 2 Vital Signs and Narrative: Vital Signs: Last Vital Signs Temp 98.2 F 03/24/24 22:27 Pulse 84 03/24/24 22:27 Resp 16 03/24/24 22:27 BP 141/64 H 03/24/24 22:27 Pulse Ox 98 03/24/24 22:27 O2 Del Method Room Air 03/24/24 22:27 BMI result Body Mass Index 26.6 Middle-aged male lying in bed in no distress Neck supple, no JVD Regular rate and rhythm, S1-S2 heard Regular breath sounds bilaterally, no wheezing or crackles appreciated Abdomen soft nontender, no guarding, no rigidity Patient is awake, alert and oriented to self, place, time and person, no dysdiadochokinesia, dizziness present upon standing, no ataxia, no nystagmus Psych: Normal mood No pedal edema Results Labs 03/24/24 18:06 03/24/24 18:06 Labs: Laboratory Results - last 24 hr 03/24/24 03/24/24 03/24/24 18:06 21:59 22:25 MCV 89.8 MCH 31.6 MCHC 35.2 RDW 12.5 Plt Count 175 MPV 9.4 Immature Gran % (Auto) 0.6 H Neut % (Auto) 89.1 H Lymph % (Auto) 3.6 L [place] % (Auto) 6.4 Eos % (Auto) 0.1 Baso % (Auto) 0.2 Lymph # (Auto) 0.6 L [place] # (Auto) 1.1 Eos # (Auto) 0.0 Baso # (Auto) 0.0 Abs Immat Gran (auto) 0.10 H Absolute Neuts (auto) 14.6 H Absolute Nucleated RBC 0.000 Nucleated RBC % (auto) 0.0 PT 12.0 INR 1.0 Anion Gap 13 Estim Creat Clear Calc 69.0 Estimated GFR > 60 POC Glucose 127 H Random Glucose 127 H Calcium 9.2 Magnesium 1.9 Total Bilirubin 0.4 AST 25 ALT 19 Alkaline Phosphatase 109 Troponin I High Sens 8.0 B-Natriuretic Peptide 21 Total Protein 6.8 Albumin 4.0 Urine Color Yellow Urine Appearance Clear Urine pH 6.0 Ur Specific [place] 1.020 Urine Protein Trace Urine Glucose (UA) Negative Urine Ketones Negative Urine Blood Trace H Urine Nitrite Positive H Ur Leukocyte Esterase Moderate (2+) H Urine RBC 3-5 H Urine WBC >50 H Ur Squamous Epith Cells 3-5 Urine Bacteria 4+ Hyaline Casts 0-2 Ethyl Alcohol < 10 Imaging Radiologist's Impressions: Impressions Face CT 03/24/24 17:31 IMPRESSION: 1. No evidence of acute intracranial hemorrhage or edematous territorial infarction. Mild underlying microangiopathy. 2. No evidence of acute fracture or traumatic subluxation of the cervical spine. 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 3. Minimally displaced anterior left nasal bone fracture. Moderate edema/hematoma along the nasal bridge. 4. Small left posterior scalp hematoma without associated osseous abnormalities. 5. Chronic coarse calcifications scattered throughout the bilateral cerebral hemispheres. Chronic patchy sclerotic lesions throughout the osseous structures. Findings are suggestive of sequela of the patient's underlying tumor sclerosis. Electronically signed by: Sedrick Morales DO 03/24/2024 07:02 PM EDT Cervical Spine CT 03/24/24 17:38 IMPRESSION: 1. No evidence of acute intracranial hemorrhage or edematous territorial infarction. Mild underlying microangiopathy. 2. No evidence of acute fracture or traumatic subluxation of the cervical spine. 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 3. Minimally displaced anterior left nasal bone fracture. Moderate edema/hematoma along the nasal bridge. 4. Small left posterior scalp hematoma without associated osseous abnormalities. 5. Chronic coarse calcifications scattered throughout the bilateral cerebral hemispheres. Chronic patchy sclerotic lesions throughout the osseous structures. Findings are suggestive of sequela of the patient's underlying tumor sclerosis. Electronically signed by: Sedrick Morales DO 03/24/2024 07:02 PM EDT RP Head CT 03/24/24 17:38 IMPRESSION: 1. No evidence of acute intracranial hemorrhage or edematous territorial infarction. Mild underlying microangiopathy. 2. No evidence of acute fracture or traumatic subluxation of the cervical spine. 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 3. Minimally displaced anterior left nasal bone fracture. Moderate edema/hematoma along the nasal bridge. 4. Small left posterior scalp hematoma without associated osseous abnormalities. 5. Chronic coarse calcifications scattered throughout the bilateral cerebral hemispheres. Chronic patchy sclerotic lesions throughout the osseous structures. Findings are suggestive of sequela of the patient's underlying tumor sclerosis. Electronically signed by: Sedrick Morales DO 03/24/2024 07:02 PM EDT RP Chest X-Ray 03/24/24 20:30 IMPRESSION: Unremarkable examination. Electronically signed by: Robert Garcia DO 03/24/2024 09:50 PM EDT RP Assessment and Plan (1) Sepsis: Status: Acute (2) Acute UTI: Status: Acute (3) Pre-syncope: Status: Acute Plan This is a 68-year-old male with pertinent history of tuberous sclerosis, seizure disorder, hypertension, prostate cancer, chronic lumbar radiculopathy due to degenerative disc disease who presents to the emergency department for evaluation of dizziness. #. Sepsis due to acute UTI: Resuscitating with IV crystalloids. Initiating empiric IV ceftriaxone. Follow blood culture and urine culture. Lactic acid obtained #. Presyncope, orthostatic: Resuscitating with IV crystalloids. Repeat orthostatics in a.m. #. Seizure disorder: Continue home antiepileptics #. Hypertension: Continue home antihypertensives #. BPH: On finasteride and Flomax Med rec pending DVT prophylaxis: Lovenox Full code Admit as inpatient and will require two night minimum hospital stay for IV antibiotics (as above), which is not possible in a lesser acute setting. Quality Stroke Does the patient have a stroke diagnosis?: No VTE Prior VTE?: No VTE Risk Level:: Medical - moderate - high VTE Device Contraindication: Treatment Not Indicated VTE Drug Contraindication: N/A - Med Ordered
[2024-03-25] VITALS (9 sets, daily range): BP systolic 116–163; BP diastolic 60–81; PULSE 75–89; RESP 14–20; TEMP 36.6–37.7; O2SAT 96–99; BMI 26.6
--- NOTE | 2024-03-25 | MHC.EDTECH ---
This tech took over care of patient at 2300,rounded and introduced self to patient,vitals taken,both sets of blood cultures/lactic obtained and sent to lab,belongings list completed,copy placed in chart,call weems in reach
[2024-03-25] MEDS: Lactated Ringers 1,000 ML 999 ML IV (00:09)
[2024-03-25] MEDS: 0.9 % Sodium Chloride Flush 3 ML SYRINGE IVFLUSH ×4 (00:11→21:31)
[2024-03-25 00:14] LABS: Lactic Acid 1.9 mmol/L (0.5-2.0)
[2024-03-25] MEDS: cefTRIAXone sodium 1 GM VIAL IVPUSH ×2 (00:15→21:31)
--- NOTE | 2024-03-25 01:13 | MHC.EDTECH ---
Patient was incont. multiple times,placed a [place] cath. to keep pt clean and dry,pt tolerated well
[2024-03-25 05:10] LABS: Basophils Percent Auto 0.2 % (0-2); Hemoglobin 11.6 g/dl (14.0-18.0); Imm Gran Abs Auto 0.19 X10*3/uL (0.00-0.03); Imm Gran Pct Auto 0.8 % (0.0-0.4); Lymphocytes Absolute Auto 1.5 X10*3/uL (1.2-4.9); Lymphocytes Percent Auto 6.2 % (20-40); MANUAL DIFF FLAG SCAN; Mean Corpuscular HGB Conc 35.2 g/dl (31.0-36.0); Mean Corpuscular Hemoglobin 31.6 pg (27.0-33.0); Mean Corpuscular Volume 89.9 fL (80.0-98.0); Mean Platelet Volume 9.2 fL (9.4-12.4); Monocytes Absolute Auto 1.7 X10*3/uL (0.1-1.2); Monocytes Percent Auto 7.4 % (2-11); Neutrophils Percent Auto 85.4 % (45-73); Platelet Count 161 X10*3/uL (160-400); Red Blood Count 3.67 X10*6/uL (4.60-5.80); Red Cell Distribution Width 12.6 % (11.0-16.0); SCAN SMEAR FLAG 1; White Blood Count 23.4 X10*3/uL (4.8-10.8)
[2024-03-25 05:36] LABS: Anion Gap 12 (12-20); Blood Urea Nitrogen 17 mg/dL (9-16); Calcium 8.9 mg/dL (8.4-10.2); Carbon Dioxide 23 mmol/L (22-29); Chloride 110 mmol/L (96-108); Creatinine Clr Calc Pharmacy 76.6; Estimated Glomerular Filt Rate > 60; Glucose Random 108 mg/dL (60-115); Potassium 3.6 mmol/L (3.3-5.1); Sodium 141 mmol/L (135-145)
[2024-03-25 05:37] LABS: SLIDE REVIEW VERIFIED
--- NOTE | 2024-03-25 06:22 | MHC.EDTECH ---
Hourly rounds and vitals completed,emptied 250MLS from bag,patient is resting quietly,call weems in reach
[2024-03-25] MEDS: Flu Vacc TS2024-25(6mos up)/PF 0.5 ML SYRINGE IM (09:02)
[2024-03-25] MEDS: Enoxaparin Sodium 40 MG/0.4 ML SYRINGE SUBCUT (09:02)
--- NOTE | 2024-03-25 09:21 | PHA.MEDREC ---
Pharmacy Consult ? Medication Reconciliation Pharmacy has completed the medication reconciliation, spoke to patient at bedside who confirmed all meds. Pt confirmed that he takes phenytoin 3 capsules all at once, daily and his tamsulosin in the morning instead of bedtime (last taken 03/24).
[2024-03-25] MEDS: Tamsulosin HCL 0.4 MG CAPSULE PO (10:55)
[2024-03-25] MEDS: Phenytoin Sodium Extended 100 MG CAPSULE 300 MG PO (10:55)
--- NOTE | 2024-03-25 13:23 | P.PNIM_ITS ---
Subjective Subjective Date of Service: 03/25/24 Interval History: no further dizziness no fever chronic urinary difficulties- incomplete emptying no flank pain Review of Systems Review of Systems: Yes all other systems are reviewed and are negative Physical Exam 2 Vital Signs: Vital Signs: Last Vital Signs Temp 99.9 F 03/25/24 10:47 Pulse 80 03/25/24 10:47 Resp 18 03/25/24 10:47 BP 132/73 03/25/24 10:47 Pulse Ox 98 03/25/24 10:47 O2 Del Method Room Air 03/25/24 10:47 BMI result Body Mass Index 26.6 Gen: in no acute distress HEENT: sclera anicteric, moist mucus membranes Neck: supple Lungs: clear to auscultation bilaterally Heart: regular rate and rhythm, no murmurs Abd: soft, non-tender, non-distended : no flank tenderness Ext: no edema Skin: warm/well-perfused, multiple bumpy flesh-colored tumors on face Neuro: alert and oriented x3, no focal findings Psych: appropriate affect Objective Data Active Medications Acetaminophen (Acetaminophen 325 Mg Tablet) 650 mg PO Q6H PRN PRN Reason: Pain, Mild (Pain Scale 1-3), fever or headache Calcium Carbonate (Calcium Carbonate 750 Mg Tab.Chew) 750 mg PO Q4H PRN PRN Reason: Heartburn Ceftriaxone Sodium (Ceftriaxone Sodium 1 Gm Vial) 1 gm IVPUSH Q24H [facility] Last Admin: 03/25/24 00:15 Dose: 1 gm Documented By: BAILEE Enoxaparin Sodium (Enoxaparin Sodium 40 Mg/0.4 Ml Syringe) 40 mg SUBCUT Q24H [facility] Last Admin: 03/25/24 09:02 Dose: 40 mg Documented By: YVETTE Finasteride (Finasteride 5 Mg Tablet) 5 mg PO DAILY [facility] Folic Acid (Folic Acid 1 Mg Tablet) 1 mg PO DAILY [facility] Lisinopril (Lisinopril 10 Mg Tablet) 10 mg PO DAILY [facility]; Protocol Magnesium Hydroxide (Milk Of Magnesia 30 Ml Oral.Susp) 30 ml PO DAILY PRN PRN Reason: Constipation Melatonin (Melatonin 3 Mg Tablet) 6 mg PO BEDTIME PRN PRN Reason: Insomnia Multivitamins/Vitamin C (Multivitamin Tablet) 1 tab PO DAILY [facility] Ondansetron HCl (Ondansetron Hcl 4 Mg/2 Ml Vial) 4 mg IVPUSH Q8H PRN PRN Reason: Nausea and Vomiting Phenytoin Sodium (Phenytoin Sodium Extended 100 Mg Capsule) 300 mg PO DAILY [facility] Last Admin: 03/25/24 10:55 Dose: 300 mg Documented By: YVETTE Sodium Chloride (0.9 % Sodium Chloride Flush 3 Ml Syringe) 3 ml IVFLUSH QSHIFT [facility] Last Admin: 03/25/24 09:03 Dose: 3 ml Documented By: YVETTE Tamsulosin HCl (Tamsulosin Hcl 0.4 Mg Capsule) 0.4 mg PO DAILY [facility] Last Admin: 03/25/24 10:55 Dose: 0.4 mg Documented By: YVETTE Labs 03/25/24 04:59 03/25/24 04:59 Labs: Laboratory Results - last 24 hr 03/24/24 03/24/24 03/24/24 18:06 21:59 22:25 MCV 89.8 MCH 31.6 MCHC 35.2 RDW 12.5 Plt Count 175 MPV 9.4 Immature Gran % (Auto) 0.6 H Neut % (Auto) 89.1 H Lymph % (Auto) 3.6 L [place] % (Auto) 6.4 Eos % (Auto) 0.1 Baso % (Auto) 0.2 Lymph # (Auto) 0.6 L [place] # (Auto) 1.1 Eos # (Auto) 0.0 Baso # (Auto) 0.0 Abs Immat Gran (auto) 0.10 H Absolute Neuts (auto) 14.6 H Absolute Nucleated RBC 0.000 Nucleated RBC % (auto) 0.0 Smear Tech's Comments PT 12.0 INR 1.0 Anion Gap 13 Estim Creat Clear Calc 69.0 Estimated GFR > 60 POC Glucose 127 H Random Glucose 127 H Lactic Acid Calcium 9.2 Magnesium 1.9 Total Bilirubin 0.4 AST 25 ALT 19 Alkaline Phosphatase 109 Troponin I High Sens 8.0 B-Natriuretic Peptide 21 Total Protein 6.8 Albumin 4.0 Urine Color Yellow Urine Appearance Clear Urine pH 6.0 Ur Specific [place] 1.020 Urine Protein Trace Urine Glucose (UA) Negative Urine Ketones Negative Urine Blood Trace H Urine Nitrite Positive H Ur Leukocyte Esterase Moderate (2+) H Urine RBC 3-5 H Urine WBC >50 H Ur Squamous Epith Cells 3-5 Urine Bacteria 4+ Hyaline Casts 0-2 Ethyl Alcohol < 10 03/24/24 03/25/24 23:52 04:59 MCV 89.9 MCH 31.6 MCHC 35.2 RDW 12.6 Plt Count 161 MPV 9.2 L Immature Gran % (Auto) 0.8 H Neut % (Auto) 85.4 H Lymph % (Auto) 6.2 L [place] % (Auto) 7.4 Eos % (Auto) 0.0 Baso % (Auto) 0.2 Lymph # (Auto) 1.5 [place] # (Auto) 1.7 H Eos # (Auto) 0.0 Baso # (Auto) 0.0 Abs Immat Gran (auto) 0.19 H Absolute Neuts (auto) 20.0 H Absolute Nucleated RBC 0.000 Nucleated RBC % (auto) 0.0 Smear Tech's Comments VERIFIED PT INR Anion Gap 12 Estim Creat Clear Calc 76.6 Estimated GFR > 60 POC Glucose Random Glucose 108 Lactic Acid 1.9 Calcium 8.9 Magnesium Total Bilirubin AST ALT Alkaline Phosphatase Troponin I High Sens B-Natriuretic Peptide Total Protein Albumin Urine Color Urine Appearance Urine pH Ur Specific [place] Urine Protein Urine Glucose (UA) Urine Ketones Urine Blood Urine Nitrite Ur Leukocyte Esterase Urine RBC Urine WBC Ur Squamous Epith Cells Urine Bacteria Hyaline Casts Ethyl Alcohol Microbiology Microbiology Results: Microbiology 03/24/24 22:15 Urine Culture - Preliminary Urine clean catch - Clean Catch Midstream Gram negative kristian Assessment and Plan (1) Sepsis: Status: Acute Plan d2 68yo M with tuberous scerlosis, seizure disorder, HTN, prostate CA, DDD/lumbar radiculopathy presenting with presyncope, found to have sepsis from UTI sepsis due to UTI - on ceftriaxone 03/24-, follow BCx/UCx presyncope - resolved after IV fluid resuscitation; orthostatic VS negative today seizure disorder - continue phenytoin HTN - continue lisinopril prostatism - continue finasteride + tamsulosin VTE prophylaxis - enoxaparin dispo - TBD In my clinical judgment, the patient requires continued inpatient hospitalization for the following reasons: IV ABX Total time managing care of this patient today: 40 minutes. Quality Stroke Does the patient have a stroke diagnosis?: No VTE Prior VTE?: No VTE Risk Level:: Medical - moderate - high VTE Device Contraindication: Treatment Not Indicated VTE Drug Contraindication: N/A - Med Ordered
[2024-03-26] VITALS (9 sets, daily range): BP systolic 118–149; BP diastolic 60–69; PULSE 77–99; RESP 14–18; TEMP 36.5–37.5; O2SAT 96–97
[2024-03-26 06:17] LABS: Hematocrit 32.6 % (42.0-52.0); Hemoglobin 11.3 g/dl (14.0-18.0); Mean Corpuscular HGB Conc 34.7 g/dl (31.0-36.0); Mean Corpuscular Hemoglobin 31.6 pg (27.0-33.0); Mean Corpuscular Volume 91.1 fL (80.0-98.0); Mean Platelet Volume 9.5 fL (9.4-12.4); Platelet Count 158 X10*3/uL (160-400); Red Blood Count 3.58 X10*6/uL (4.60-5.80); Red Cell Distribution Width 12.6 % (11.0-16.0); White Blood Count 17.9 X10*3/uL (4.8-10.8)
[2024-03-26 06:35] LABS: Anion Gap 12 (12-20); Blood Urea Nitrogen 15 mg/dL (9-16); Calcium 9.1 mg/dL (8.4-10.2); Carbon Dioxide 25 mmol/L (22-29); Chloride 107 mmol/L (96-108); Creatinine Clr Calc Pharmacy 71.1; Estimated Glomerular Filt Rate > 60; Glucose Random 101 mg/dL (60-115); Potassium 3.7 mmol/L (3.3-5.1); Sodium 140 mmol/L (135-145)
[2024-03-26 07:36] LABS: C Reactive Protein 24.34 mg/dL (< or = 0.50)
[2024-03-26] MEDS: Tamsulosin HCL 0.4 MG CAPSULE PO (08:49)
[2024-03-26] MEDS: Phenytoin Sodium Extended 100 MG CAPSULE 300 MG PO (08:49)
[2024-03-26] MEDS: Multivitamin TABLET 1 TAB PO (08:50)
[2024-03-26] MEDS: lisinopriL 10 MG TABLET PO (08:50)
[2024-03-26] MEDS: Folic Acid 1 MG TABLET PO (08:54)
[2024-03-26] MEDS: Enoxaparin Sodium 40 MG/0.4 ML SYRINGE SUBCUT (08:55)
[2024-03-26] MEDS: Finasteride 5 MG TABLET PO (08:55)
[2024-03-26] MEDS: 0.9 % Sodium Chloride Flush 3 ML SYRINGE IVFLUSH ×3 (09:04→21:38)
--- NOTE | 2024-03-26 09:50 | MHC.CM.PN ---
Addendum entered by Dania Ugalde 03/27/24 08:22: [facility] OFFERING A BED, THEY WILL SUBMIT FOR AUTH THIS MORNING Addendum entered by Dania Ugalde 03/26/24 14:34: PT EVAL RECOMMENDING STR REFERRALS OUT Original Note: [employer] MET WITH PT W/ CM AT BEDSIDE PT LIVES AT HOME WITH EX AND DAUGHTER PT STATES HE HAS NO SERVICES AT HOME PT USES A CANE AT HOME BUT IS INTERESTED IN AN UPRIGHT WALKER PCP IS [facility] PT EXPRESSED INTEREST IN A SNF IF APPLICABLE IMM DELIVERED PT COMPLETED HCP AT BEDSIDE NAMING DAUGHTER AGENT
--- NOTE | 2024-03-26 13:07 | P.PNIM_ITS ---
Subjective Subjective Date of Service: 03/26/24 Interval History: c/o difficulty + burning urinating, no hematuria no fever feels weak/dizzy Review of Systems Review of Systems: Yes all other systems are reviewed and are negative Physical Exam 2 Vital Signs: Vital Signs: Last Vital Signs Temp 99.0 F 03/26/24 11:51 Pulse 81 03/26/24 11:51 Resp 16 03/26/24 11:51 BP 118/62 03/26/24 11:51 Pulse Ox 97 03/26/24 11:51 O2 Del Method Room Air 03/26/24 11:51 BMI result Body Mass Index 26.6 Gen: in no acute distress HEENT: sclera anicteric, moist mucus membranes Neck: supple Lungs: clear to auscultation bilaterally Heart: regular rate and rhythm, no murmurs Abd: soft, non-tender, non-distended : no flank tenderness Ext: no edema Skin: warm/well-perfused, multiple bumpy flesh-colored tumors on face Neuro: alert and oriented x3, no focal findings Psych: appropriate affect Objective Data Active Medications Acetaminophen (Acetaminophen 325 Mg Tablet) 650 mg PO Q6H PRN PRN Reason: Pain, Mild (Pain Scale 1-3), fever or headache Calcium Carbonate (Calcium Carbonate 750 Mg Tab.Chew) 750 mg PO Q4H PRN PRN Reason: Heartburn Ceftriaxone Sodium (Ceftriaxone Sodium 1 Gm Vial) 1 gm IVPUSH Q24H [facility] Last Admin: 03/25/24 21:31 Dose: 1 gm Documented By: JEIMY Enoxaparin Sodium (Enoxaparin Sodium 40 Mg/0.4 Ml Syringe) 40 mg SUBCUT Q24H [facility] Last Admin: 03/26/24 08:55 Dose: 40 mg Documented By: JOHN Finasteride (Finasteride 5 Mg Tablet) 5 mg PO DAILY [facility] Last Admin: 03/26/24 08:55 Dose: 5 mg Documented By: JOHN Folic Acid (Folic Acid 1 Mg Tablet) 1 mg PO DAILY [facility] Last Admin: 03/26/24 08:54 Dose: 1 mg Documented By: JOHN Lisinopril (Lisinopril 10 Mg Tablet) 10 mg PO DAILY [facility]; Protocol Last Admin: 03/26/24 08:50 Dose: 10 mg Documented By: JOHN Magnesium Hydroxide (Milk Of Magnesia 30 Ml Oral.Susp) 30 ml PO DAILY PRN PRN Reason: Constipation Melatonin (Melatonin 3 Mg Tablet) 6 mg PO BEDTIME PRN PRN Reason: Insomnia Multivitamins/Vitamin C (Multivitamin Tablet) 1 tab PO DAILY [facility] Last Admin: 03/26/24 08:50 Dose: 1 tab Documented By: JOHN Ondansetron HCl (Ondansetron Hcl 4 Mg/2 Ml Vial) 4 mg IVPUSH Q8H PRN PRN Reason: Nausea and Vomiting Phenytoin Sodium (Phenytoin Sodium Extended 100 Mg Capsule) 300 mg PO DAILY [facility] Last Admin: 03/26/24 08:49 Dose: 300 mg Documented By: JOHN Sodium Chloride (0.9 % Sodium Chloride Flush 3 Ml Syringe) 3 ml IVFLUSH QSHIFT [facility] Last Admin: 03/26/24 09:04 Dose: 3 ml Documented By: JOHN Tamsulosin HCl (Tamsulosin Hcl 0.4 Mg Capsule) 0.4 mg PO DAILY [facility] Last Admin: 03/26/24 08:49 Dose: 0.4 mg Documented By: JOHN Labs 03/26/24 05:57 03/26/24 05:57 Labs: Laboratory Results - last 24 hr 03/26/24 05:57 MCV 91.1 MCH 31.6 MCHC 34.7 RDW 12.6 Plt Count 158 L MPV 9.5 Absolute Nucleated RBC 0.000 Nucleated RBC % (auto) 0.0 Anion Gap 12 Estim Creat Clear Calc 71.1 Estimated GFR > 60 Random Glucose 101 Calcium 9.1 C-Reactive Protein 24.34 H Microbiology Microbiology Results: Microbiology 03/24/24 22:15 Urine Culture - Final Urine clean catch - Clean Catch Midstream Escherichia coli 03/24/24 23:52 Blood Culture - Preliminary Blood - Venous No growth after 24 hours. 03/24/24 23:52 Blood Culture - Preliminary Blood - Venous No growth after 24 hours. Assessment and Plan (1) Sepsis: Status: Acute Plan d3 68yo M with tuberous scerlosis, seizure disorder, HTN, prostatism, DDD/lumbar radiculopathy presenting with presyncope, found to have sepsis from UTI sepsis due to E coli UTI [pansensitive] - on ceftriaxone 03/24-, follow BCx [no growth to date]; renal US pending prostatism - Urology consult; continue finasteride + tamsulosin presyncope - resolved after IV fluid resuscitation; orthostatic VS negative yesterday; repeat today seizure disorder - continue phenytoin HTN - continue lisinopril VTE prophylaxis - enoxaparin dispo - PT eval: STr suggested In my clinical judgment, the patient requires continued inpatient hospitalization for the following reasons: IV ABX Total time managing care of this patient today: 40 minutes. Quality Stroke Does the patient have a stroke diagnosis?: No VTE Prior VTE?: No VTE Risk Level:: Medical - moderate - high VTE Device Contraindication: Treatment Not Indicated VTE Drug Contraindication: N/A - Med Ordered
--- NOTE | 2024-03-26 14:11 | PM.UROCN ---
History of Present Illness Consult details Consult date: 03/26/24 Narrative: 68 year old male consult admitted due to fall. Urology consult for UTI, and renal lesion on seen on US. Review of Systems Review of Systems: Yes all other systems are reviewed and are negative Constitutional: Constitutional: Reports no additional constitutional complaints Eyes: Eyes: Reports no additional eye complaints ENT: Reports system reviewed and no additional complaints, except as documented Cardiovascular: Cardiovascular: Reports no additional cardiovascular complaints Respiratory: Respiratory: Reports no additional respiratory complaints Gastrointestinal: Gastrointestinal: Reports no additional gastrointestinal complaints Genitourinary: Genitourinary: Reports as per HPI Musculoskeletal: Musculoskeletal: Reports no additional musculoskeletal complaints Integumentary/Breasts: Skin/Breast: Reports system reviewed and no additional complaints, except as docu Neurologic: Reports system reviewed and no additional complaints, except as documented Psychiatric: Psychiatric: Reports no additional psychiatric complaints Endocrine: Endocrine: Reports no additional endocrine complaints Hematologic/Lymphatic: Hematologic/Lymphatic: Reports no additional hematologic/lymphatic complaints Allergic/Immunologic: Allergic/Immunologic: Reports no additional allergic/immunologic complaints [facility] Past Medical History Medical History Prostate cancer Chronic radicular pain of lower back Lumbar disc disease Excessive cerumen in both ear canals Low vitamin B12 level Seizure HTN (hypertension) URI (upper respiratory infection) Tuberous sclerosis Social History Social History Household Members: Family Housing: House Do you presently have visiting nurse or other home services: No Patient Tobacco Use Status: Former Tobacco user Years Smoked: quit 1987 e-Cigarette/Vaping Use: Never Used Second Hand Smoke Exposure: No service: No Current occupational status: retired Cognitive needs: No Hearing needs: No Vision needs: No Meds Allergies Allergy/AdvReac Type Severity Reaction Status Date / Time No Known Allergies Allergy Verified 03/24/24 17:38 Active Medications: Current Medications Acetaminophen (Acetaminophen 325 Mg Tablet) 650 mg PO Q6H PRN PRN Reason: Pain, Mild (Pain Scale 1-3), fever or headache Calcium Carbonate (Calcium Carbonate 750 Mg Tab.Chew) 750 mg PO Q4H PRN PRN Reason: Heartburn Ceftriaxone Sodium (Ceftriaxone Sodium 1 Gm Vial) 1 gm IVPUSH Q24H [facility] Last Admin: 03/25/24 21:31 Dose: 1 gm Enoxaparin Sodium (Enoxaparin Sodium 40 Mg/0.4 Ml Syringe) 40 mg SUBCUT Q24H [facility] Last Admin: 03/26/24 08:55 Dose: 40 mg Finasteride (Finasteride 5 Mg Tablet) 5 mg PO DAILY [facility] Last Admin: 03/26/24 08:55 Dose: 5 mg Folic Acid (Folic Acid 1 Mg Tablet) 1 mg PO DAILY [facility] Last Admin: 03/26/24 08:54 Dose: 1 mg Lisinopril (Lisinopril 10 Mg Tablet) 10 mg PO DAILY [facility]; Protocol Last Admin: 03/26/24 08:50 Dose: 10 mg Magnesium Hydroxide (Milk Of Magnesia 30 Ml Oral.Susp) 30 ml PO DAILY PRN PRN Reason: Constipation Melatonin (Melatonin 3 Mg Tablet) 6 mg PO BEDTIME PRN PRN Reason: Insomnia Multivitamins/Vitamin C (Multivitamin Tablet) 1 tab PO DAILY [facility] Last Admin: 03/26/24 08:50 Dose: 1 tab Ondansetron HCl (Ondansetron Hcl 4 Mg/2 Ml Vial) 4 mg IVPUSH Q8H PRN PRN Reason: Nausea and Vomiting Phenytoin Sodium (Phenytoin Sodium Extended 100 Mg Capsule) 300 mg PO DAILY [facility] Last Admin: 03/26/24 08:49 Dose: 300 mg Sodium Chloride (0.9 % Sodium Chloride Flush 3 Ml Syringe) 3 ml IVFLUSH QSHIFT [facility] Last Admin: 03/26/24 09:04 Dose: 3 ml Tamsulosin HCl (Tamsulosin Hcl 0.4 Mg Capsule) 0.4 mg PO DAILY [facility] Last Admin: 03/26/24 08:49 Dose: 0.4 mg Home Medications ?Medication ?Instructions ?Recorded ?Confirmed ?Last Taken ?Type phenytoin sodium extended 100 mg 300 mg PO DAILY 05/09/21 03/25/24 03/24/24 History capsule folic acid 1 mg tablet 1 mg PO DAILY 05/02/22 03/25/24 03/24/24 History tamsulosin 0.4 mg capsule 0.4 mg PO DAILY 05/02/22 03/25/24 03/24/24 History [id number] acid-vit 1 tab PO DAILY 07/02/22 03/25/24 03/24/24 History K-lycop 400 mcg-20 mcg-370 mcg tablet (One-A-Day Men's 50 Plus (with vitamin K)) lisinopril 10 mg tablet 10 mg PO DAILY 03/25/24 03/25/24 03/24/24 History Physical Exam Vital Signs: Vital Signs: Last Vital Signs Temp 99.0 F 03/26/24 11:51 Pulse 81 03/26/24 11:51 Resp 16 03/26/24 11:51 BP 118/62 03/26/24 11:51 Pulse Ox 97 03/26/24 11:51 O2 Del Method Room Air 03/26/24 11:51 BMI result Body Mass Index 26.6 Const: General: no acute distress and well developed HEENT: Head: Yes normocephalic and Yes atraumatic Eyes: Conjunctivae: conjunctivae normal Neck: Neck: Yes normal visual inspection Chest: Chest palpation & inspection: normal inspection of the chest Resp: Effort & Inspection: normal respiratory effort Cardio: Rate: regular rate GI: Inspection: Yes normal to inspection Palpation (GI): Soft to palpation Psych: Appearance: grossly normal Results Labs 03/27/24 05:40 03/26/24 05:57 Labs: Abnormal lab results 03/26/24 Range/Units 05:57 WBC 17.9 H (4.8-10.8) X10*3/uL RBC 3.58 L (4.60-5.80) X10*6/uL Hgb 11.3 L (14.0-18.0) g/dl Hct 32.6 L (42.0-52.0) % Plt Count 158 L (160-400) X10*3/uL C-Reactive Protein 24.34 H (< or = 0.50) mg/dL Short CBC 03/26/24 Range/Units 05:57 WBC 17.9 H (4.8-10.8) X10*3/uL Hgb 11.3 L (14.0-18.0) g/dl Hct 32.6 L (42.0-52.0) % Plt Count 158 L (160-400) X10*3/uL BMP 03/26/24 05:57 Sodium 140 Potassium 3.7 Chloride 107 Carbon Dioxide 25 BUN 15 Creatinine 0.98 Calcium 9.1 Urine 03/24/24 Range/Units 21:59 Urine Color Yellow Urine Appearance Clear Urine pH 6.0 (5.0-9.0) Ur Specific Trosper 1.020 (1.005-1.025) Urine Protein Trace (Neg-Trace) mg/dL Urine Glucose (UA) Negative (Negative) mg/dL \ Collected: 03/24/24 Status: COMP Req#: [id number] Received: 03/24/24 Source: [facility] Sp Desc: Clean Cat Subm Dr: Galina Johnson [facility] Ordered: Urine Culture Procedure Result Verified Urine Culture Final 03/26/24 Organism 1 Escherichia coli Quant > 100,000 cfu/mL E coli M.I.C. RX --------- --- Ampicillin <=2 S Cefazolin <=4 S Ceftriaxone <=0.25 S Ciprofloxacin <=0.25 S Gentamicin <=1 S Nitrofurantoin <=16 S Trimethoprim/Sulfamethoxazole <=20 S Imaging Additional studies: Date of Service: 03/25/24 US RETROPERITONEAL LIMITED (RENAL ONLY) CLINICAL INFORMATION: Sepsis. Urinary retention. Rule out hydronephrosis/abscess. COMPARISON: Ultrasound abdomen complete 01/20/2020; CT abdomen and pelvis dated 07/16/2006. TECHNIQUE: Real-time imaging of the kidneys. FINDINGS: RIGHT KIDNEY: 12.1 x 5.5 x 4.7 cm (SAG x AP x TRV). The kidney is normal in size, contour, and echogenicity. Renal cortical thickness is normal. No hydronephrosis. At the lower pole, a 6 mm nonobstructing calculus is seen. At the upper pole, a 2.4 x 1.6 x 2.0 cm, without associated color Doppler flow. On the ultrasound examination of 01/20/2020, this measures 2.2 x 2.4 x 2.4 cm. LEFT KIDNEY: 11.1 x 5.2 x 4.3 cm (SAG x AP x TRV). The kidney is normal in size, contour, and echogenicity. Renal cortical thickness is normal. No renal calculi or hydronephrosis. There are multiple benign, simple cysts, the largest at the lower pole measuring 1.0 cm these require no imaging follow-up. IMPRESSION: 1. There is a continued stable right renal upper pole mass lesion. The interim stability of the ultrasound examination 01/20/[address] examination of 07/16/2006 suggests a benign etiology. 2. A 6 mm nonobstructing right lower pole calculus is seen. Assessment and Plan (1) Right renal stone: Status: Acute (2) UTI (urinary tract infection): Status: Resolved (3) BPH loc w urin obs/LUTS: Status: Acute (4) Renal lesion: Status: Acute Plan Stable renal lesion, no further work up at this time. Continued annual monitoring as an outpatient Pt on flomax and proscar. Out patient FU with Urology PSA 2022- 2.94 ng/mL Procedures Date of Service Date of Service: 04/21/24
[2024-03-26] MEDS: cefTRIAXone sodium 1 GM VIAL IVPUSH (21:38)
[2024-03-27 06:21] LABS: Hematocrit 32.6 % (42.0-52.0); Hemoglobin 11.1 g/dl (14.0-18.0); Mean Corpuscular Hemoglobin 31.1 pg (27.0-33.0); Mean Corpuscular Volume 91.3 fL (80.0-98.0); Mean Platelet Volume 9.8 fL (9.4-12.4); Platelet Count 158 X10*3/uL (160-400); Red Blood Count 3.57 X10*6/uL (4.60-5.80); Red Cell Distribution Width 12.5 % (11.0-16.0); White Blood Count 11.7 X10*3/uL (4.8-10.8)
[2024-03-27 07:51] VITALS: BP 126/83; PULSE 72; RESP 16; TEMP 36.2; O2SAT 96
[2024-03-27] MEDS: 0.9 % Sodium Chloride Flush 3 ML SYRINGE IVFLUSH ×3 (08:22→22:20)
[2024-03-27] MEDS: Enoxaparin Sodium 40 MG/0.4 ML SYRINGE SUBCUT (08:22)
[2024-03-27] MEDS: Multivitamin TABLET 1 TAB PO (08:23)
[2024-03-27] MEDS: Folic Acid 1 MG TABLET PO (08:23)
[2024-03-27] MEDS: lisinopriL 10 MG TABLET PO (08:23)
[2024-03-27] MEDS: Finasteride 5 MG TABLET PO (08:23)
[2024-03-27] MEDS: Tamsulosin HCL 0.4 MG CAPSULE PO (08:24)
[2024-03-27] MEDS: Phenytoin Sodium Extended 100 MG CAPSULE 300 MG PO (08:24)
[2024-03-27 10:08] VITALS: BP 126/83; PULSE 72; O2SAT 96
--- NOTE | 2024-03-27 12:39 | MHC.CM.PN ---
MONITORING MANAGER AND CM MET WITH PT PT INFORMED THAT HE WAS ACCEPTED TO [facility] DEPENDENT ON AUTHORIZATION WITH INSURANCE
--- NOTE | 2024-03-27 13:09 | HO.PM.IMPN ---
Subjective Subjective Date of Service: 03/27/24 Interval History: No burning on urinating, no hematuria no fever, gen weak, no dizziness Physical Exam Vital Signs: Vital Signs: Last Vital Signs Temp 97.1 F 03/27/24 07:51 Pulse 72 03/27/24 10:08 Resp 16 03/27/24 07:51 BP 126/83 03/27/24 10:08 Pulse Ox 96 03/27/24 10:08 O2 Del Method Room Air 03/27/24 07:51 BMI result Body Mass Index 26.6 General: AO X 3, no acute distress Resp: CTA bilateral CVS: S1,S2,RRR GI: +BS, NT, no distention Skin: No rash Neuro: motor grossly intact Psych: appropriate affect Objective Data Active Medications Acetaminophen (Acetaminophen 325 Mg Tablet) 650 mg PO Q6H PRN PRN Reason: Pain, Mild (Pain Scale 1-3), fever or headache Calcium Carbonate (Calcium Carbonate 750 Mg Tab.Chew) 750 mg PO Q4H PRN PRN Reason: Heartburn Ceftriaxone Sodium (Ceftriaxone Sodium 1 Gm Vial) 1 gm IVPUSH Q24H [facility]S [facility] 234 BEDS AT THE [facility] Last Admin: 03/26/24 21:38 Dose: 1 gm Documented By: JEIMY Enoxaparin Sodium (Enoxaparin Sodium 40 Mg/0.4 Ml Syringe) 40 mg SUBCUT Q24H [facility]S [facility] 234 BEDS AT [facility] Last Admin: 03/27/24 08:22 Dose: 40 mg Documented By: JOHN Finasteride (Finasteride 5 Mg Tablet) 5 mg PO DAILY [facility] 234 BEDS AT [facility] Last Admin: 03/27/24 08:23 Dose: 5 mg Documented By: JOHN Folic Acid (Folic Acid 1 Mg Tablet) 1 mg PO DAILY [facility] 234 BEDS AT [facility] Last Admin: 03/27/24 08:23 Dose: 1 mg Documented By: JOHN Lisinopril (Lisinopril 10 Mg Tablet) 10 mg PO DAILY [facility] 234 BEDS AT THE [facility]; Protocol Last Admin: 03/27/24 08:23 Dose: 10 mg Documented By: JOHN Magnesium Hydroxide (Milk Of Magnesia 30 Ml Oral.Susp) 30 ml PO DAILY PRN PRN Reason: Constipation Melatonin (Melatonin 3 Mg Tablet) 6 mg PO BEDTIME PRN PRN Reason: Insomnia Multivitamins/Vitamin C (Multivitamin Tablet) 1 tab PO DAILY [facility] 234 BEDS AT [facility] Last Admin: 03/27/24 08:23 Dose: 1 tab Documented By: JOHN Ondansetron HCl (Ondansetron Hcl 4 Mg/2 Ml Vial) 4 mg IVPUSH Q8H PRN PRN Reason: Nausea and Vomiting Phenytoin Sodium (Phenytoin Sodium Extended 100 Mg Capsule) 300 mg PO DAILY [facility] 234 BEDS AT [facility] Last Admin: 03/27/24 08:24 Dose: 300 mg Documented By: JOHN Sodium Chloride (0.9 % Sodium Chloride Flush 3 Ml Syringe) 3 ml IVFLUSH QSHIFT COUNTS INCLUDE 234 BEDS AT THE [facility] Last Admin: 03/27/24 08:22 Dose: 3 ml Documented By: JOHN Tamsulosin HCl (Tamsulosin Hcl 0.4 Mg Capsule) 0.4 mg PO DAILY [facility]CLUDE 234 BEDS AT THE [facility] Last Admin: 03/27/24 08:24 Dose: 0.4 mg Documented By: JOHN Labs 03/27/24 05:40 03/26/24 05:57 Labs: Laboratory Results - last 24 hr 03/27/24 05:40 MCV 91.3 MCH 31.1 MCHC 34.0 RDW 12.5 Plt Count 158 L MPV 9.8 Absolute Nucleated RBC 0.000 Nucleated RBC % (auto) 0.0 Microbiology Microbiology Results: Microbiology 03/24/24 23:52 Blood Culture - Preliminary Blood - Venous No growth after 48 hours. 03/24/24 23:52 Blood Culture - Preliminary Blood - Venous No growth after 48 hours. Assessment and Plan (1) Sepsis: Status: Acute Plan 68yo M with tuberous scerlosis, seizure disorder, HTN, prostatism, DDD/lumbar radiculopathy presenting with presyncope, found to have sepsis from UTI sepsis due to E coli UTI [pansensitive] - on ceftriaxone 03/24-, change to Ceftin, follow BCx [no growth to date]; renal US: 1. There is a continued stable right renal upper pole mass lesion. The interim stability of the ultrasound examination 01/20/[address] examination of 07/16/2006 suggests a benign etiology. 2. A 6 mm nonobstructing right lower pole calculus is seen. prostatism - Urology consult; continue finasteride + tamsulosin presyncope - resolved after IV fluid resuscitation; orthostatic VS negative yesterday; repeat today seizure disorder - continue phenytoin HTN - continue lisinopril VTE prophylaxis - enoxaparin dispo - PT eval: STr suggested In my clinical judgment, the patient requires continued inpatient hospitalization for the following reasons: IV ABX Total time managing care of this patient today: 40 minutes. Quality Stroke Does the patient have a stroke diagnosis?: No VTE Prior VTE?: No VTE Risk Level:: Medical - moderate - high VTE Device Contraindication: Treatment Not Indicated VTE Drug Contraindication: N/A - Med Ordered
[2024-03-27] MEDS: Acetaminophen 325 MG TABLET 650 MG PO ×2 (14:35→22:24)
[2024-03-27 15:13] VITALS: BP 138/67; PULSE 73; RESP 18; TEMP 36.7; O2SAT 95
[2024-03-27 19:33] VITALS: BP 135/67; PULSE 78; RESP 18; TEMP 36.2; O2SAT 98
[2024-03-27] MEDS: cefTRIAXone sodium 1 GM VIAL IVPUSH (22:20)
[2024-03-28 03:37] VITALS: BP 143/70; PULSE 70; RESP 18; TEMP 36.3; O2SAT 99
[2024-03-28 08:00] VITALS: BP 171/80; PULSE 61; RESP 14; TEMP 36.6; O2SAT 97
[2024-03-28] MEDS: 0.9 % Sodium Chloride Flush 3 ML SYRINGE IVFLUSH ×3 (09:01→21:58)
[2024-03-28] MEDS: Finasteride 5 MG TABLET PO (09:02)
[2024-03-28] MEDS: lisinopriL 10 MG TABLET PO (09:02)
[2024-03-28] MEDS: Enoxaparin Sodium 40 MG/0.4 ML SYRINGE SUBCUT (09:02)
[2024-03-28] MEDS: Folic Acid 1 MG TABLET PO (09:02)
[2024-03-28] MEDS: Multivitamin TABLET 1 TAB PO (09:03)
[2024-03-28] MEDS: Phenytoin Sodium Extended 100 MG CAPSULE 300 MG PO (09:03)
[2024-03-28] MEDS: Tamsulosin HCL 0.4 MG CAPSULE PO (09:03)
[2024-03-28] MEDS: Acetaminophen 325 MG TABLET 650 MG PO ×2 (09:47→21:03)
--- NOTE | 2024-03-28 10:26 | HO.PM.IMPN ---
Subjective Subjective Date of Service: 03/28/24 Interval History: No burning on urinating, no hematuria no fever, gen weak, no dizziness awaiting STR placement Physical Exam Vital Signs: Vital Signs: Last Vital Signs Temp 98 F 03/28/24 08:00 Pulse 61 03/28/24 08:00 Resp 14 03/28/24 08:00 BP 171/80 H 03/28/24 08:00 Pulse Ox 97 03/28/24 08:00 O2 Del Method Room Air 03/28/24 08:00 BMI result Body Mass Index 26.6 General: AO X 3, no acute distress Resp: CTA bilateral CVS: S1,S2,RRR GI: +BS, NT, no distention Skin: No rash Neuro: motor grossly intact Psych: appropriate affect Objective Data Active Medications Acetaminophen (Acetaminophen 325 Mg Tablet) 650 mg PO Q6H PRN PRN Reason: Pain, Mild (Pain Scale 1-3), fever or headache Last Admin: 03/28/24 09:47 Dose: 650 mg Documented By: PODMORP Calcium Carbonate (Calcium Carbonate 750 Mg Tab.Chew) 750 mg PO Q4H PRN PRN Reason: Heartburn Ceftriaxone Sodium (Ceftriaxone Sodium 1 Gm Vial) 1 gm IVPUSH Q24H [facility] Last Admin: 03/27/24 22:20 Dose: 1 gm Documented By: KARLENE Enoxaparin Sodium (Enoxaparin Sodium 40 Mg/0.4 Ml Syringe) 40 mg SUBCUT Q24H [facility] Last Admin: 03/28/24 09:02 Dose: 40 mg Documented By: PODMORP Finasteride (Finasteride 5 Mg Tablet) 5 mg PO DAILY [facility] Last Admin: 03/28/24 09:02 Dose: 5 mg Documented By: PODMORP Folic Acid (Folic Acid 1 Mg Tablet) 1 mg PO DAILY [facility] Last Admin: 03/28/24 09:02 Dose: 1 mg Documented By: PODMORP Lisinopril (Lisinopril 10 Mg Tablet) 10 mg PO DAILY [facility]; Protocol Last Admin: 03/28/24 09:02 Dose: 10 mg Documented By: PODMORP Magnesium Hydroxide (Milk Of Magnesia 30 Ml Oral.Susp) 30 ml PO DAILY PRN PRN Reason: Constipation Melatonin (Melatonin 3 Mg Tablet) 6 mg PO BEDTIME PRN PRN Reason: Insomnia Multivitamins/Vitamin C (Multivitamin Tablet) 1 tab PO DAILY [facility] Last Admin: 03/28/24 09:03 Dose: 1 tab Documented By: PODMORP Ondansetron HCl (Ondansetron Hcl 4 Mg/2 Ml Vial) 4 mg IVPUSH Q8H PRN PRN Reason: Nausea and Vomiting Phenytoin Sodium (Phenytoin Sodium Extended 100 Mg Capsule) 300 mg PO DAILY [facility] Last Admin: 03/28/24 09:03 Dose: 300 mg Documented By: PODMORP Sodium Chloride (0.9 % Sodium Chloride Flush 3 Ml Syringe) 3 ml IVFLUSH QSHIFT [facility] Last Admin: 03/28/24 09:01 Dose: 3 ml Documented By: PODMORP Tamsulosin HCl (Tamsulosin Hcl 0.4 Mg Capsule) 0.4 mg PO DAILY [facility] Last Admin: 03/28/24 09:03 Dose: 0.4 mg Documented By: PODMORP Labs 03/27/24 05:40 03/26/24 05:57 Assessment and Plan (1) Sepsis: Status: Acute Plan 68yo M with tuberous scerlosis, seizure disorder, HTN, prostatism, DDD/lumbar radiculopathy presenting with presyncope, found to have sepsis from UTI sepsis due to E coli UTI [pansensitive] - on ceftriaxone 03/24-, change to Ceftin, follow BCx [no growth to date]; renal US: 1. There is a continued stable right renal upper pole mass lesion. The interim stability of the ultrasound examination 01/20/[address] examination of 07/16/2006 suggests a benign etiology. 2. A 6 mm nonobstructing right lower pole calculus is seen. prostatism - Urology consult; continue finasteride + tamsulosin presyncope - resolved after IV fluid resuscitation; orthostatic VS negative yesterday; repeat today seizure disorder - continue phenytoin HTN - continue lisinopril VTE prophylaxis - enoxaparin dispo - PT eval: STr suggested need for inpt: Placement Total time managing care of this patient today: 40 minutes. Quality Stroke Does the patient have a stroke diagnosis?: No VTE Prior VTE?: No VTE Risk Level:: Medical - moderate - high VTE Device Contraindication: Treatment Not Indicated VTE Drug Contraindication: N/A - Med Ordered
--- NOTE | 2024-03-28 11:09 | MHC.CM.PN ---
Per [facility], [facility] has denied auth for STR. CM reviewed with patient who would like to appeal. Need to request peer to peer by noon on 03/30. [phone] option 1. ? If appeal is denied, patient agreeable to home w/ [facility].
[2024-03-28 15:33] VITALS: BP 136/71; PULSE 66; RESP 20; TEMP 36.3; O2SAT 97
[2024-03-28 19:29] VITALS: BP 156/66; PULSE 67; RESP 20; TEMP 37.2; O2SAT 97
[2024-03-28] MEDS: guaiFENesin LA 600 MG TAB.ER.12H PO (21:03)
[2024-03-28] MEDS: cefTRIAXone sodium 1 GM VIAL IVPUSH (22:00)
[2024-03-29 03:09] VITALS: BP 152/89; PULSE 61; RESP 18; TEMP 36.6; O2SAT 99
[2024-03-29 08:00] VITALS: BP 146/81; PULSE 63; RESP 16; TEMP 36.9
[2024-03-29] MEDS: lisinopriL 10 MG TABLET PO (08:47)
[2024-03-29] MEDS: Phenytoin Sodium Extended 100 MG CAPSULE 300 MG PO (08:47)
[2024-03-29] MEDS: Multivitamin TABLET 1 TAB PO (08:47)
[2024-03-29] MEDS: Tamsulosin HCL 0.4 MG CAPSULE PO (08:47)
[2024-03-29] MEDS: Finasteride 5 MG TABLET PO (08:47)
[2024-03-29] MEDS: Folic Acid 1 MG TABLET PO (08:48)
[2024-03-29] MEDS: Enoxaparin Sodium 40 MG/0.4 ML SYRINGE SUBCUT (08:48)
[2024-03-29] MEDS: 0.9 % Sodium Chloride Flush 3 ML SYRINGE IVFLUSH ×3 (08:57→22:46)
[2024-03-29] MEDS: Acetaminophen 325 MG TABLET 650 MG PO ×2 (09:16→19:51)
--- NOTE | 2024-03-29 10:02 | P.PNIM_ITS ---
Subjective Subjective Date of Service: 03/29/24 Interval History: No burning on urinating, no hematuria no fever, gen weak, no dizziness awaiting STR placement, insurance has declined rehab, he is apealing Physical Exam 2 Vital Signs: Vital Signs: Last Vital Signs Temp 98.4 F 03/29/24 08:00 Pulse 63 03/29/24 08:00 Resp 16 03/29/24 08:00 BP 146/81 H 03/29/24 08:00 Pulse Ox 99 03/29/24 03:09 O2 Del Method Room Air 03/29/24 08:00 BMI result Body Mass Index 26.6 General: AO X 3, no acute distress Resp: CTA bilateral CVS: S1,S2,RRR GI: +BS, NT, no distention Skin: No rash Neuro: motor grossly intact Psych: appropriate affect Objective Data Active Medications Acetaminophen (Acetaminophen 325 Mg Tablet) 650 mg PO Q6H PRN PRN Reason: Pain, Mild (Pain Scale 1-3), fever or headache Last Admin: 03/29/24 09:16 Dose: 650 mg Documented By: CESLIIA Calcium Carbonate (Calcium Carbonate 750 Mg Tab.Chew) 750 mg PO Q4H PRN PRN Reason: Heartburn Ceftriaxone Sodium (Ceftriaxone Sodium 1 Gm Vial) 1 gm IVPUSH Q24H [facility] Last Admin: 03/28/24 22:00 Dose: 1 gm Documented By: EDWIN Enoxaparin Sodium (Enoxaparin Sodium 40 Mg/0.4 Ml Syringe) 40 mg SUBCUT Q24H [facility] Last Admin: 03/29/24 08:48 Dose: 40 mg Documented By: CESILIA Finasteride (Finasteride 5 Mg Tablet) 5 mg PO DAILY [facility] Last Admin: 03/29/24 08:47 Dose: 5 mg Documented By: CESILIA Folic Acid (Folic Acid 1 Mg Tablet) 1 mg PO DAILY [facility] Last Admin: 03/29/24 08:48 Dose: 1 mg Documented By: CESILIA Guaifenesin (Guaifenesin La 600 Mg Tab.Er.12h) 600 mg PO BID PRN PRN Reason: Congestion Last Admin: 03/28/24 21:03 Dose: 600 mg Documented By: EDWIN Lisinopril (Lisinopril 10 Mg Tablet) 10 mg PO DAILY [facility]; Protocol Last Admin: 03/29/24 08:47 Dose: 10 mg Documented By: CESILIA Magnesium Hydroxide (Milk Of Magnesia 30 Ml Oral.Susp) 30 ml PO DAILY PRN PRN Reason: Constipation Melatonin (Melatonin 3 Mg Tablet) 6 mg PO BEDTIME PRN PRN Reason: Insomnia Multivitamins/Vitamin C (Multivitamin Tablet) 1 tab PO DAILY [facility] Last Admin: 03/29/24 08:47 Dose: 1 tab Documented By: CESILIA Ondansetron HCl (Ondansetron Hcl 4 Mg/2 Ml Vial) 4 mg IVPUSH Q8H PRN PRN Reason: Nausea and Vomiting Phenytoin Sodium (Phenytoin Sodium Extended 100 Mg Capsule) 300 mg PO DAILY [facility] Last Admin: 03/29/24 08:47 Dose: 300 mg Documented By: CESILIA Sodium Chloride (0.9 % Sodium Chloride Flush 3 Ml Syringe) 3 ml IVFLUSH QSHIFT [facility] Last Admin: 03/29/24 08:57 Dose: 3 ml Documented By: CESILIA Tamsulosin HCl (Tamsulosin Hcl 0.4 Mg Capsule) 0.4 mg PO DAILY [facility] Last Admin: 03/29/24 08:47 Dose: 0.4 mg Documented By: CESILIA Labs 03/27/24 05:40 03/26/24 05:57 Assessment and Plan (1) Sepsis: Status: Acute Plan 68yo M with tuberous scerlosis, seizure disorder, HTN, prostatism, DDD/lumbar radiculopathy presenting with presyncope, found to have sepsis from UTI sepsis due to E coli UTI [pansensitive] - on ceftriaxone 03/24-, change to Ceftin, follow BCx [no growth to date]; renal US: 1. There is a continued stable right renal upper pole mass lesion. The interim stability of the ultrasound examination 01/20/[address] examination of 07/16/2006 suggests a benign etiology. 2. A 6 mm nonobstructing right lower pole calculus is seen. prostatism - Urology consult; continue finasteride + tamsulosin presyncope - resolved after IV fluid resuscitation; orthostatic VS negative yesterday; repeat today seizure disorder - continue phenytoin HTN - continue lisinopril VTE prophylaxis - enoxaparin dispo - PT eval: reeval tomorrow need for Placement, insurance has declined rehab, patient apealing Total time managing care of this patient today: 40 minutes. Quality Stroke Does the patient have a stroke diagnosis?: No VTE Prior VTE?: No VTE Risk Level:: Medical - moderate - high VTE Device Contraindication: Treatment Not Indicated VTE Drug Contraindication: N/A - Med Ordered
[2024-03-29 15:42] VITALS: BP 133/76; PULSE 75; RESP 16; TEMP 36.9; O2SAT 96
[2024-03-29 20:00] VITALS: BP 163/84; PULSE 70; RESP 20; TEMP 36.2; O2SAT 100
[2024-03-29] MEDS: cefTRIAXone sodium 1 GM VIAL IVPUSH (22:17)
[2024-03-30 04:00] VITALS: BP 124/71; PULSE 70; RESP 18; TEMP 36.6; O2SAT 99
[2024-03-30] MEDS: Phenytoin Sodium Extended 100 MG CAPSULE 300 MG PO (07:42)
[2024-03-30] MEDS: Acetaminophen 325 MG TABLET 650 MG PO ×2 (07:42→15:29)
[2024-03-30] MEDS: Folic Acid 1 MG TABLET PO (07:43)
[2024-03-30] MEDS: Multivitamin TABLET 1 TAB PO (07:43)
[2024-03-30] MEDS: Tamsulosin HCL 0.4 MG CAPSULE PO (07:43)
[2024-03-30] MEDS: lisinopriL 10 MG TABLET PO (07:43)
[2024-03-30] MEDS: Finasteride 5 MG TABLET PO (07:43)
[2024-03-30] MEDS: Enoxaparin Sodium 40 MG/0.4 ML SYRINGE SUBCUT (07:44)
[2024-03-30] MEDS: 0.9 % Sodium Chloride Flush 3 ML SYRINGE IVFLUSH ×3 (07:45→19:18)
[2024-03-30 08:13] VITALS: BP 129/69; PULSE 63; RESP 18; TEMP 36.3; O2SAT 99
--- NOTE | 2024-03-30 10:54 | PM.DS ---
DS: Providers Provider Date of Service: 03/30/24 Date of admission: 03/24/24 23:04 Primary care physician: Unknown Physician Consults: 03/26/24 08:45 Consult to Urology Routine Consulting Provider: [facility] Reason for consultation: severe prostatism DS: Diagnosis Discharge Diagnosis (1) Sepsis: Status: Acute DS: Summary Hospital Course Hospital Course: admission hpi Chief Complaint: Dizziness This is a 68-year-old male with pertinent history of tuberous sclerosis, seizure disorder, hypertension, prostate cancer, chronic lumbar radiculopathy due to degenerative disc disease who presents to the emergency department for evaluation of dizziness. Patient states when he tried to get up from a seated position, he got dizzy/lightheaded and fell. Patient was going to use the restroom. States over the last couple of days he has been having increased urinary frequency. Also noticed changed in odor of urine. Patient fell on his desk hitting his head. Did not lose consciousness. No jerking movement of extremities prior to the fall. No chest pain or palpitations prior to the fall. No fever, chills, chest pain, palpitations, shortness of breath, abdominal pain, changes in bowel habits. In the emergency department, patient was found to be septic and urine concerning for UTI. Hospital course: 68yo M with tuberous scerlosis, seizure disorder, HTN, prostatism, DDD/lumbar radiculopathy presenting with presyncope, found to have sepsis from UTI, culture grew pansensitive E. coli. He has been treated with Ceftriaxone since 03/24 and will be treated for a toal of 14 days, while transitioning to oral Ceftin CT showed 1. There is a continued stable right renal upper pole mass lesion. The interim stability of the ultrasound examination 01/20/[address] examination of 07/16/2006 suggests a benign etiology. 2. A 6 mm nonobstructing right lower pole calculus is seen. He was seen by Urology with and noted for Stable renal lesion, no further work up at this time. Continued annual monitoring as an outpatient Pt on flomax and proscar. Out patient FU with Urology . Patient will go home with james and follow up with urology prostatism - Urology consult; continue finasteride + tamsulosin. Outpatient follow up presyncope - resolved after IV fluid resuscitation; orthostatic VS negative yesterday; repeat today seizure disorder - continue phenytoin HTN - continue lisinopril Genreal decondition from sepsis, and hospitalization, he was intially evaluated by PT for rehab but was declined by insurance. Patient has since been doing well, ambulating in [place] and therefore at this point will do ok at home with family support and VNA services Time Attestation Discharge Coordination Time (in mins): 45 Quality: Safe Use of Opioids Does Pt have an Active Cancer Diagnosis on the Problem List?: No Quality: Stroke Does the patient have a stroke diagnosis?: No Physical Exam Vital Signs: Vital Signs: Last Vital Signs Temp 97.3 F 03/30/24 08:13 Pulse 63 03/30/24 08:13 Resp 18 03/30/24 08:13 BP 129/69 03/30/24 08:13 Pulse Ox 99 03/30/24 08:13 O2 Del Method Room Air 03/30/24 08:13 BMI result Body Mass Index 26.6 Discharge Plan Discharge Anticipated Discharge Date/Time: 03/30/24 10:19 Patient Disposition: Home Health Service Discharge Diagnosis: UTI, sepsis, urinary retention Referrals: Zechariah Clark MD [Physician] - 2 Weeks Physician,Kanwal J [Primary Care Provider] - 1 Week Discharge Medications: New cefuroxime axetil 500 mg tablet 500 mg PO BID 7 Days Qty: 14 0RF Continued (DME) walker Misc See Rx Instructions .Route Qty: 1 0RF Rx Instructions: USE daily for lower extrem weakness/ankle sprain finasteride 5 mg tablet 5 mg PO DAILY Qty: 90 1RF lisinopril 10 mg tablet 10 mg PO DAILY phenytoin sodium extended 100 mg capsule 300 mg PO DAILY folic acid 1 mg tablet 1 mg PO DAILY tamsulosin 0.4 mg capsule 0.4 mg PO DAILY One-A-Day Men's 50 Plus(vit K) 400-20-370 mcg tablet 1 tab PO DAILY Discharge Orders: Discharge Order (Routine); Ordered 03/30/24 Ordered By: James Meraz Diet: Advance to usual diet Activity on Discharge: As tolerated Stand Alone Forms: Patient Portal Discharge page Print Language: Sinhala Activity Restrictions/Additional Instructions: Augmentin for nasal fracture Care Plan Goals: recovery from sepsis and uti Health Concerns: uti sepis urinary retenton Plan of Treatment: take Cefuroxime as recommended follow up with urologist follow up with your doctor Assessment: see above Patient Instructions: Nasal Fracture (ED)
--- NOTE | 2024-03-30 14:48 | MHC.CM.PN ---
per rounds pt pt does not qulify for str ,pt will be dcd home with vna pot will have a ride home when dcd tomorrow dcplan home with hvns
--- NOTE | 2024-03-30 14:55 | W.MHC.F2F ---
Service Date Service Date: 03/30/24 Encounter Date of encounter: 03/30/24 Reasons for Services Signs and symptoms assessed: weakness from hospitalization for sepsis, uti, and urianry retention Reason for usp: teach disease management and GI/ assessment Reason for physical therapy: therapeutic exercises and gait/transfer training Homebound: Leaving the home is medically contraindicated at this time without the asist of a device and/or another person due th the listed conditions above and below. Reason homebound: unsteady gait / fall risk and weakness related to hospital stay Homebound supporting statement: homebound due to weakness from hospitalization, post sepsis, urinary retention with james and need of another person's help Certification: Based on the above findings, I certify that this patient is confined to the home and needs intermittent usp care, physical therapy and/or speech therapy, or continues to need occupational therapy. The patient is under my care, and I have initiated the establishment of the plan of care. The patient will be followed by a physician who will periodically review the plan of care. Time Spent With Patient Time: Total time managing care of this patient today ____ minutes.
[2024-03-30 15:16] VITALS: BP 148/79; PULSE 66; RESP 18; TEMP 36.3; O2SAT 97
--- NOTE | 2024-03-30 15:19 | HO.PM.IMPN ---
Subjective Subjective Date of Service: 03/31/24 Interval History: Generally very weak no fever Physical Exam Vital Signs: Vital Signs: Last Vital Signs Temp 97.3 F 03/30/24 15:16 Pulse 66 03/30/24 15:16 Resp 18 03/30/24 15:16 BP 148/79 H 03/30/24 15:16 Pulse Ox 97 03/30/24 15:16 O2 Del Method Room Air 03/30/24 15:16 BMI result Body Mass Index 26.6 Const: Other: General: AO X 3, no acute distress Resp: CTA bilateral CVS: S1,S2,RRR GI: +BS, NT, no distention Skin: No rash Neuro: motor grossly intact Psych: appropriate affect Objective Data Active Medications Acetaminophen (Acetaminophen 325 Mg Tablet) 650 mg PO Q6H PRN PRN Reason: Pain, Mild (Pain Scale 1-3), fever or headache Last Admin: 03/30/24 07:42 Dose: 650 mg Documented By: CARLOS Calcium Carbonate (Calcium Carbonate 750 Mg Tab.Chew) 750 mg PO Q4H PRN PRN Reason: Heartburn Ceftriaxone Sodium (Ceftriaxone Sodium 1 Gm Vial) 1 gm IVPUSH Q24H [facility] Last Admin: 03/29/24 22:17 Dose: 1 gm Documented By: KARLENE Enoxaparin Sodium (Enoxaparin Sodium 40 Mg/0.4 Ml Syringe) 40 mg SUBCUT Q24H [facility] Last Admin: 03/30/24 07:44 Dose: 40 mg Documented By: CARLOS Finasteride (Finasteride 5 Mg Tablet) 5 mg PO DAILY [facility] Last Admin: 03/30/24 07:43 Dose: 5 mg Documented By: CARLOS Folic Acid (Folic Acid 1 Mg Tablet) 1 mg PO DAILY [facility] Last Admin: 03/30/24 07:43 Dose: 1 mg Documented By: CARLOS Guaifenesin (Guaifenesin La 600 Mg Tab.Er.12h) 600 mg PO BID PRN PRN Reason: Congestion Last Admin: 03/28/24 21:03 Dose: 600 mg Documented By: EDWIN Lisinopril (Lisinopril 10 Mg Tablet) 10 mg PO DAILY [facility]; Protocol Last Admin: 03/30/24 07:43 Dose: 10 mg Documented By: CARLOS Magnesium Hydroxide (Milk Of Magnesia 30 Ml Oral.Susp) 30 ml PO DAILY PRN PRN Reason: Constipation Melatonin (Melatonin 3 Mg Tablet) 6 mg PO BEDTIME PRN PRN Reason: Insomnia Multivitamins/Vitamin C (Multivitamin Tablet) 1 tab PO DAILY [facility] Last Admin: 03/30/24 07:43 Dose: 1 tab Documented By: CARLOS Ondansetron HCl (Ondansetron Hcl 4 Mg/2 Ml Vial) 4 mg IVPUSH Q8H PRN PRN Reason: Nausea and Vomiting Phenytoin Sodium (Phenytoin Sodium Extended 100 Mg Capsule) 300 mg PO DAILY [facility] Last Admin: 03/30/24 07:42 Dose: 300 mg Documented By: CARLOS Sodium Chloride (0.9 % Sodium Chloride Flush 3 Ml Syringe) 3 ml IVFLUSH QSHIFT [facility] Last Admin: 03/30/24 07:45 Dose: 3 ml Documented By: CARLOS Tamsulosin HCl (Tamsulosin Hcl 0.4 Mg Capsule) 0.4 mg PO DAILY [facility] Last Admin: 03/30/24 07:43 Dose: 0.4 mg Documented By: CARLOS Labs 03/27/24 05:40 03/26/24 05:57 Microbiology Microbiology Results: Microbiology 03/24/24 23:52 Blood Culture - Final Blood - Venous No growth after 5 days. 03/24/24 23:52 Blood Culture - Final Blood - Venous No growth after 5 days. Assessment and Plan (1) Renal lesion: Status: Acute (2) BPH loc w urin obs/LUTS: Status: Acute (3) UTI (urinary tract infection): Status: Acute Plan 68yo M with tuberous scerlosis, seizure disorder, HTN, prostatism, DDD/lumbar radiculopathy presenting with presyncope, found to have sepsis from UTI, culture grew pansensitive E. coli. He has been treated with Ceftriaxone since 03/24 to 03/30 change to Ceftin tomorrow for a toal of 14 days (7 days more), while transitioning to oral Ceftin CT showed 1. There is a continued stable right renal upper pole mass lesion. The interim stability of the ultrasound examination 01/20/[address] examination of 07/16/2006 suggests a benign etiology. 2. A 6 mm nonobstructing right lower pole calculus is seen. He was seen by Urology with and noted for Stable renal lesion, no further work up at this time. Continued annual monitoring as an outpatient Pt on flomax and proscar. Out patient FU with Urology . Patient will go home with james and follow up with urology prostatism - Urology consult; continue finasteride + tamsulosin. Outpatient follow up presyncope - resolved after IV fluid resuscitation; orthostatic VS negative yesterday; repeat today seizure disorder - continue phenytoin HTN - continue lisinopril Genreal decondition from sepsis, and hospitalization, PT is recommending STR Quality Stroke Does the patient have a stroke diagnosis?: No VTE Prior VTE?: No VTE Risk Level:: Medical - moderate - high VTE Device Contraindication: Treatment Not Indicated VTE Drug Contraindication: N/A - Med Ordered
[2024-03-30] MEDS: ondansetron HCL 4 MG/2 ML VIAL IVPUSH (15:32)
[2024-03-30] MEDS: cefuroxime axetiL 500 MG TABLET PO (19:18)
[2024-03-30 19:41] VITALS: BP 129/62; PULSE 74; RESP 18; TEMP 36.3; O2SAT 95
[2024-03-31 07:35] VITALS: BP 134/67; PULSE 64; RESP 18; TEMP 36.1; O2SAT 99
[2024-03-31] MEDS: Finasteride 5 MG TABLET PO (08:08)
[2024-03-31] MEDS: Phenytoin Sodium Extended 100 MG CAPSULE 300 MG PO (08:08)
[2024-03-31] MEDS: Folic Acid 1 MG TABLET PO (08:08)
[2024-03-31] MEDS: cefuroxime axetiL 500 MG TABLET PO ×2 (08:08→20:27)
[2024-03-31] MEDS: lisinopriL 10 MG TABLET PO (08:08)
[2024-03-31] MEDS: Multivitamin TABLET 1 TAB PO (08:08)
[2024-03-31] MEDS: Enoxaparin Sodium 40 MG/0.4 ML SYRINGE SUBCUT (08:09)
[2024-03-31] MEDS: Tamsulosin HCL 0.4 MG CAPSULE PO (08:09)
[2024-03-31] MEDS: 0.9 % Sodium Chloride Flush 3 ML SYRINGE IVFLUSH ×2 (08:10→16:00)
[2024-03-31] MEDS: Acetaminophen 325 MG TABLET 650 MG PO (08:33)
--- NOTE | 2024-03-31 15:26 | P.PNIM_ITS ---
Subjective Subjective Date of Service: 03/31/24 Interval History: uti ,generlaised weak Review of Systems no new c/o. Physical Exam 2 Vital Signs: Vital Signs: Last Vital Signs Temp 96.9 F 03/31/24 07:35 Pulse 64 03/31/24 07:35 Resp 18 03/31/24 07:35 BP 134/67 03/31/24 07:35 Pulse Ox 99 03/31/24 07:35 O2 Del Method Room Air 03/31/24 07:35 BMI result Body Mass Index 26.6 General: AO X 3, no acute distress Resp: CTA bilateral CVS: S1,S2,RRR GI: +BS, NT, no distention Skin: No rash Neuro: motor grossly intact Psych: appropriate affect Objective Data Active Medications Acetaminophen (Acetaminophen 325 Mg Tablet) 650 mg PO Q6H PRN PRN Reason: Pain, Mild (Pain Scale 1-3), fever or headache Last Admin: 03/31/24 08:33 Dose: 650 mg Documented By: JUSTYN Calcium Carbonate (Calcium Carbonate 750 Mg Tab.Chew) 750 mg PO Q4H PRN PRN Reason: Heartburn Cefuroxime Axetil (Cefuroxime Axetil 500 Mg Tablet) 500 mg PO BID [facility] Last Admin: 03/31/24 08:08 Dose: 500 mg Documented By: JUSTYN Enoxaparin Sodium (Enoxaparin Sodium 40 Mg/0.4 Ml Syringe) 40 mg SUBCUT Q24H [facility] Last Admin: 03/31/24 08:09 Dose: 40 mg Documented By: JUSTYN Finasteride (Finasteride 5 Mg Tablet) 5 mg PO DAILY [facility] Last Admin: 03/31/24 08:08 Dose: 5 mg Documented By: JUSTYN Folic Acid (Folic Acid 1 Mg Tablet) 1 mg PO DAILY [facility] Last Admin: 03/31/24 08:08 Dose: 1 mg Documented By: JUSTYN Guaifenesin (Guaifenesin La 600 Mg Tab.Er.12h) 600 mg PO BID PRN PRN Reason: Congestion Last Admin: 03/28/24 21:03 Dose: 600 mg Documented By: EDWIN Lisinopril (Lisinopril 10 Mg Tablet) 10 mg PO DAILY [facility]; Protocol Last Admin: 03/31/24 08:08 Dose: 10 mg Documented By: JUSTYN Magnesium Hydroxide (Milk Of Magnesia 30 Ml Oral.Susp) 30 ml PO DAILY PRN PRN Reason: Constipation Melatonin (Melatonin 3 Mg Tablet) 6 mg PO BEDTIME PRN PRN Reason: Insomnia Multivitamins/Vitamin C (Multivitamin Tablet) 1 tab PO DAILY [facility] Last Admin: 03/31/24 08:08 Dose: 1 tab Documented By: JUSTYN Ondansetron HCl (Ondansetron Hcl 4 Mg/2 Ml Vial) 4 mg IVPUSH Q8H PRN PRN Reason: Nausea and Vomiting Last Admin: 03/30/24 15:32 Dose: 4 mg Documented By: LUCJOSE LUIS Phenytoin Sodium (Phenytoin Sodium Extended 100 Mg Capsule) 300 mg PO DAILY [facility] Last Admin: 03/31/24 08:08 Dose: 300 mg Documented By: JUSTYN Sodium Chloride (0.9 % Sodium Chloride Flush 3 Ml Syringe) 3 ml IVFLUSH QSHIFT [facility] Last Admin: 03/31/24 08:10 Dose: 3 ml Documented By: JUSTYN Tamsulosin HCl (Tamsulosin Hcl 0.4 Mg Capsule) 0.4 mg PO DAILY [facility] Last Admin: 03/31/24 08:09 Dose: 0.4 mg Documented By: JUSTYN Labs 03/27/24 05:40 03/26/24 05:57 Assessment and Plan (1) Renal lesion: Status: Acute (2) BPH loc w urin obs/LUTS: Status: Acute (3) UTI (urinary tract infection): Status: Acute Plan 68yo M with tuberous scerlosis, seizure disorder, HTN, prostatism, DDD/lumbar radiculopathy presenting with presyncope, found to have sepsis from UTI, culture grew pansensitive E. coli. continue Ceftriaxone since 03/24 to 03/30 change to Ceftin tomorrow for goal of 14 days (7 days more), while transitioning to oral Ceftin CT showed 1. There is a continued stable right renal upper pole mass lesion. The interim stability of the ultrasound examination 01/20/[address] examination of 07/16/2006 suggests a benign etiology. 2. A 6 mm nonobstructing right lower pole calculus is seen. He was seen by Urology with and noted for Stable renal lesion, no further work up at this time. Continued annual monitoring as an outpatient continue flomax and proscar,ceftin , Out patient FU with Urology, go home with james and follow up with urology prostatism - Urology consult; continue finasteride + tamsulosin. Outpatient follow up presyncope - resolved after IV fluid resuscitation; orthostatic VS negative yesterday; repeat today seizure disorder - continue phenytoin HTN - continue lisinopril Genreal decondition from sepsis, and hospitalization, PT is recommending STR Quality Stroke Does the patient have a stroke diagnosis?: No VTE Prior VTE?: No VTE Risk Level:: Medical - moderate - high VTE Device Contraindication: Treatment Not Indicated VTE Drug Contraindication: N/A - Med Ordered
[2024-03-31 15:29] VITALS: BP 126/63; PULSE 67; RESP 14; TEMP 36.1; O2SAT 99
[2024-03-31 19:44] VITALS: BP 147/79; PULSE 73; RESP 20; TEMP 36.3; O2SAT 97
[2024-04-01] MEDS: 0.9 % Sodium Chloride Flush 3 ML SYRINGE IVFLUSH ×4 (00:45→21:34)
[2024-04-01 03:36] VITALS: BP 154/73; PULSE 67; RESP 16; TEMP 36.2; O2SAT 98
[2024-04-01 07:35] VITALS: BP 142/75; PULSE 65; RESP 18; TEMP 36.6; O2SAT 97
[2024-04-01] MEDS: Phenytoin Sodium Extended 100 MG CAPSULE 300 MG PO (08:04)
[2024-04-01] MEDS: Tamsulosin HCL 0.4 MG CAPSULE PO (08:05)
[2024-04-01] MEDS: cefuroxime axetiL 500 MG TABLET PO ×2 (08:05→19:47)
[2024-04-01] MEDS: Multivitamin TABLET 1 TAB PO (08:05)
[2024-04-01] MEDS: Finasteride 5 MG TABLET PO (08:05)
[2024-04-01] MEDS: Folic Acid 1 MG TABLET PO (08:05)
[2024-04-01] MEDS: lisinopriL 10 MG TABLET PO (08:05)
[2024-04-01] MEDS: Enoxaparin Sodium 40 MG/0.4 ML SYRINGE SUBCUT (08:05)
[2024-04-01] MEDS: Acetaminophen 325 MG TABLET 650 MG PO ×2 (08:05→21:38)
[2024-04-01 15:12] VITALS: BP 138/67; PULSE 73; RESP 18; TEMP 37; O2SAT 98
--- NOTE | 2024-04-01 15:15 | MHC.CM.PN ---
PER ROUNDS PT READY FOR DC AWAITNG [employer] APPEAL DETERMINATION ,IF AGAIN DENIED PT WILL GO HOME WITH [facility] PER PT REQUEST HAS THIS AGENCY
[2024-04-01 19:18] VITALS: BP 142/75; RESP 20; TEMP 36; O2SAT 97
[2024-04-01] MEDS: Melatonin 3 MG TABLET 6 MG PO (21:38)
[2024-04-02 03:24] VITALS: BP 127/67; PULSE 61; RESP 16; TEMP 36.6; O2SAT 96
[2024-04-02 07:06] VITALS: BP 130/70; PULSE 60; RESP 18; TEMP 36.7; O2SAT 98
--- NOTE | 2024-04-02 08:37 | MHC.CM.PN ---
Addendum entered by Dania Ugalde 04/02/24 09:14: CM RECEIVED A RESPONSE FROM [facility], THEY HAVE APPROVED HIS STR REQUEST PT STATES STR IS STILL HIS PREFERENCE PT WILL DC [facility] TRANSPORT BOOKED WITH [facility] FOR 1330 HOURS Addendum entered by Dania Ugalde 04/02/24 08:39: CORRECTION: [facility] HAS INDICATED PT IS OUT OF THEIR SERVICE AREA Original Note: YAMILET MET WITH PT TO DISCUSS DC PLANS HE SAYS HE IS UNSURE IF THERE IS AN APPEAL WITH [employer] REGARDING STR HOWEVER HE IS WILLING TO GO HOME WITH [facility] HAS ACCEPTED PT WILL NEED SHUTTLE TRANSPORT
[2024-04-02] MEDS: Tamsulosin HCL 0.4 MG CAPSULE PO (08:47)
[2024-04-02] MEDS: cefuroxime axetiL 500 MG TABLET PO (08:47)
[2024-04-02] MEDS: Phenytoin Sodium Extended 100 MG CAPSULE 300 MG PO (08:48)
[2024-04-02] MEDS: lisinopriL 10 MG TABLET PO (08:48)
[2024-04-02] MEDS: Folic Acid 1 MG TABLET PO (08:48)
[2024-04-02] MEDS: Multivitamin TABLET 1 TAB PO (08:48)
[2024-04-02] MEDS: Enoxaparin Sodium 40 MG/0.4 ML SYRINGE SUBCUT (08:48)
[2024-04-02] MEDS: Finasteride 5 MG TABLET PO (08:48)
[2024-04-02] MEDS: 0.9 % Sodium Chloride Flush 3 ML SYRINGE IVFLUSH (08:51)
[2024-04-02] MEDS: Acetaminophen 325 MG TABLET 650 MG PO (08:56)
--- NOTE | 2024-04-02 10:36 | HO.PM.IMPN ---
Subjective Subjective Date of Service: 04/02/24 Interval History: uti Review of Systems no new c/o Physical Exam Vital Signs: Vital Signs: Last Vital Signs Temp 98.0 F 04/02/24 07:06 Pulse 60 04/02/24 07:06 Resp 18 04/02/24 07:06 BP 130/70 04/02/24 07:06 Pulse Ox 98 04/02/24 07:06 O2 Del Method Room Air 04/02/24 07:06 BMI result Body Mass Index 26.6 General: AO X 3, no acute distress Resp: CTA bilateral CVS: S1,S2,RRR GI: +BS, NT, no distention Skin: No rash Neuro: motor grossly intact Psych: appropriate affect Objective Data Active Medications Acetaminophen (Acetaminophen 325 Mg Tablet) 650 mg PO Q6H PRN PRN Reason: Pain, Mild (Pain Scale 1-3), fever or headache Last Admin: 04/02/24 08:56 Dose: 650 mg Documented By: NETTE Calcium Carbonate (Calcium Carbonate 750 Mg Tab.Chew) 750 mg PO Q4H PRN PRN Reason: Heartburn Cefuroxime Axetil (Cefuroxime Axetil 500 Mg Tablet) 500 mg PO BID [facility] Last Admin: 04/02/24 08:47 Dose: 500 mg Documented By: NETTE Enoxaparin Sodium (Enoxaparin Sodium 40 Mg/0.4 Ml Syringe) 40 mg SUBCUT Q24H [facility] Last Admin: 04/02/24 08:48 Dose: 40 mg Documented By: NETTE Finasteride (Finasteride 5 Mg Tablet) 5 mg PO DAILY [facility] Last Admin: 04/02/24 08:48 Dose: 5 mg Documented By: NETTE Folic Acid (Folic Acid 1 Mg Tablet) 1 mg PO DAILY [facility] Last Admin: 04/02/24 08:48 Dose: 1 mg Documented By: NETTE Guaifenesin (Guaifenesin La 600 Mg Tab.Er.12h) 600 mg PO BID PRN PRN Reason: Congestion Last Admin: 03/28/24 21:03 Dose: 600 mg Documented By: EDWIN Lisinopril (Lisinopril 10 Mg Tablet) 10 mg PO DAILY [facility]; Protocol Last Admin: 04/02/24 08:48 Dose: 10 mg Documented By: NETTE Magnesium Hydroxide (Milk Of Magnesia 30 Ml Oral.Susp) 30 ml PO DAILY PRN PRN Reason: Constipation Melatonin (Melatonin 3 Mg Tablet) 6 mg PO BEDTIME PRN PRN Reason: Insomnia Last Admin: 04/01/24 21:38 Dose: 6 mg Documented By: EDWIN Multivitamins/Vitamin C (Multivitamin Tablet) 1 tab PO DAILY [facility] Last Admin: 04/02/24 08:48 Dose: 1 tab Documented By: NETTE Ondansetron HCl (Ondansetron Hcl 4 Mg/2 Ml Vial) 4 mg IVPUSH Q8H PRN PRN Reason: Nausea and Vomiting Last Admin: 03/30/24 15:32 Dose: 4 mg Documented By: CARLOS Phenytoin Sodium (Phenytoin Sodium Extended 100 Mg Capsule) 300 mg PO DAILY [facility] Last Admin: 04/02/24 08:48 Dose: 300 mg Documented By: NETTE Sodium Chloride (0.9 % Sodium Chloride Flush 3 Ml Syringe) 3 ml IVFLUSH QSHIFT [facility] Last Admin: 04/02/24 08:51 Dose: 3 ml Documented By: NETTE Tamsulosin HCl (Tamsulosin Hcl 0.4 Mg Capsule) 0.4 mg PO DAILY [facility] Last Admin: 04/02/24 08:47 Dose: 0.4 mg Documented By: NETTE Labs 03/27/24 05:40 03/26/24 05:57 Assessment and Plan (1) Renal lesion: Status: Acute (2) BPH loc w urin obs/LUTS: Status: Acute (3) UTI (urinary tract infection): Status: Acute Plan 68yo M with tuberous scerlosis, seizure disorder, HTN, prostatism, DDD/lumbar radiculopathy presenting with presyncope, found to have sepsis from UTI, culture grew pansensitive E. coli. continue Ceftriaxone since 03/24 to 03/30 change to Ceftin tomorrow for goal of 14 days (6 days more), while transitioning to oral Ceftin CT showed 1. There is a continued stable right renal upper pole mass lesion. The interim stability of the ultrasound examination 01/20/[address] examination of 07/16/2006 suggests a benign etiology. 2. A 6 mm nonobstructing right lower pole calculus is seen. He was seen by Urology with and noted for Stable renal lesion, no further work up at this time. Continued annual monitoring as an outpatient continue flomax and proscar,ceftin , Out patient FU with Urology, go home with james and follow up with urology prostatism - Urology consult; continue finasteride + tamsulosin. Outpatient follow up presyncope - resolved after IV fluid resuscitation; orthostatic VS negative yesterday; repeat today seizure disorder - continue phenytoin HTN - continue lisinopril Genreal decondition from sepsis, and hospitalization, PT is recommending STR Quality Stroke Does the patient have a stroke diagnosis?: No VTE Prior VTE?: No VTE Risk Level:: Medical - moderate - high VTE Device Contraindication: Treatment Not Indicated VTE Drug Contraindication: N/A - Med Ordered
--- NOTE | 2024-04-02 10:39 | PM.DS ---
DS: Providers Provider Date of Service: 04/02/24 Date of admission: 03/24/24 23:04 Date of discharge: 04/02/24 Primary care physician: GABRIELLA Ackerman Consults: 03/26/24 08:45 Consult to Urology Routine Consulting Provider: [facility] Reason for consultation: severe prostatism Attending physician on discharge: Addi Lieberman Discharging clinician: Addi Lieberman DS: Diagnosis Discharge Diagnosis (1) Renal lesion: Status: Acute (2) BPH loc w urin obs/LUTS: Status: Acute (3) UTI (urinary tract infection): Status: Acute DS: Summary Hospital Course Hospital Course: admission hpi Chief Complaint: Dizziness This is a 68-year-old male with pertinent history of tuberous sclerosis, seizure disorder, hypertension, prostate cancer, chronic lumbar radiculopathy due to degenerative disc disease who presents to the emergency department for evaluation of dizziness. Patient states when he tried to get up from a seated position, he got dizzy/lightheaded and fell. Patient was going to use the restroom. States over the last couple of days he has been having increased urinary frequency. Also noticed changed in odor of urine. Patient fell on his desk hitting his head. Did not lose consciousness. No jerking movement of extremities prior to the fall. No chest pain or palpitations prior to the fall. No fever, chills, chest pain, palpitations, shortness of breath, abdominal pain, changes in bowel habits. In the emergency department, patient was found to be septic and urine concerning for UTI. Hospital course: 68yo M with tuberous scerlosis, seizure disorder, HTN, prostatism, DDD/lumbar radiculopathy presenting with presyncope, found to have sepsis from UTI, culture grew pansensitive E. coli. He has been treated with Ceftriaxone since 03/24 and will be treated for a toal of 14 days, while transitioning to oral Ceftin CT showed:1. There is a continued stable right renal upper pole mass lesion. The interim stability of the ultrasound examination 01/20/[address] examination of 07/16/2006 suggests a benign etiology, A 6 mm nonobstructing right lower pole calculus is seen. He was seen by Urology with and noted for Stable renal lesion, no further work up at this time. Continued annual monitoring as an outpatient Pt on flomax and proscar. Out patient FU with Urology . Patient will go home with james and follow up with urology ct head:Small left posterior scalp hematoma without associated osseous abnormalities. denies any pain ,saclp area seems improved significantly. prostatism - seen by Urology ,continue finasteride + tamsulosin. Outpatient follow up presyncope - resolved after IV fluid resuscitation-possible sec to dehydration/prerenal azotemia , also might flactuating bp. currently asymptomatic , if new symptoms consider outpatient workup. seizure disorder - continue phenytoin HTN - continue lisinopril patient is going to rehab . plan: complete ceftin 500 mg po bid for 5 more days. Out patient FU with Urology-for urinary retention and above Ct findings. presyncope - possible sec to dehydration/prerenal azotemia , resolved with ivf, also might flactuating bp.check for orthostasis outaptient . currently asymptomatic , if new symptoms consider outpatient workup. assessment and plan coordination time spent 40 min. Time Attestation Total time managing care of this patient today: 40 mintues. Discharge Coordination Time (in mins): 40 min Quality: Safe Use of Opioids Does Pt have an Active Cancer Diagnosis on the Problem List?: No Quality: Stroke Does the patient have a stroke diagnosis?: No Physical Exam Vital Signs: Vital Signs: Last Vital Signs Temp 98.0 F 04/02/24 07:06 Pulse 60 04/02/24 07:06 Resp 18 04/02/24 07:06 BP 130/70 04/02/24 07:06 Pulse Ox 98 04/02/24 07:06 O2 Del Method Room Air 04/02/24 07:06 BMI result Body Mass Index 26.6 General: AO X 3, no acute distress Resp: CTA bilateral CVS: S1,S2,RRR GI: +BS, NT, no distention Skin: No rash scalp area-no ecchymosis or swelling heent: nose -no erythema or discharge or pain. Neuro: motor grossly intact Psych: appropriate affect DS: Data Imaging Chest x-ray: Radiologist's impression: ITS Impressions Face CT 03/24/24 17:31 IMPRESSION: 1. No evidence of acute intracranial hemorrhage or edematous territorial infarction. Mild underlying microangiopathy. 2. No evidence of acute fracture or traumatic subluxation of the cervical spine. 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 3. Minimally displaced anterior left nasal bone fracture. Moderate edema/hematoma along the nasal bridge. 4. Small left posterior scalp hematoma without associated osseous abnormalities. 5. Chronic coarse calcifications scattered throughout the bilateral cerebral hemispheres. Chronic patchy sclerotic lesions throughout the osseous structures. Findings are suggestive of sequela of the patient's underlying tumor sclerosis. Electronically signed by: Sedrick Morales DO 03/24/2024 07:02 PM EDT RP Cervical Spine CT 03/24/24 17:38 IMPRESSION: 1. No evidence of acute intracranial hemorrhage or edematous territorial infarction. Mild underlying microangiopathy. 2. No evidence of acute fracture or traumatic subluxation of the cervical spine. 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 3. Minimally displaced anterior left nasal bone fracture. Moderate edema/hematoma along the nasal bridge. 4. Small left posterior scalp hematoma without associated osseous abnormalities. 5. Chronic coarse calcifications scattered throughout the bilateral cerebral hemispheres. Chronic patchy sclerotic lesions throughout the osseous structures. Findings are suggestive of sequela of the patient's underlying tumor sclerosis. Electronically signed by: Sedrick Morales DO 03/24/2024 07:02 PM EDT RP Head CT 03/24/24 17:38 IMPRESSION: 1. No evidence of acute intracranial hemorrhage or edematous territorial infarction. Mild underlying microangiopathy. 2. No evidence of acute fracture or traumatic subluxation of the cervical spine. 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 3. Minimally displaced anterior left nasal bone fracture. Moderate edema/hematoma along the nasal bridge. 4. Small left posterior scalp hematoma without associated osseous abnormalities. 5. Chronic coarse calcifications scattered throughout the bilateral cerebral hemispheres. Chronic patchy sclerotic lesions throughout the osseous structures. Findings are suggestive of sequela of the patient's underlying tumor sclerosis. Electronically signed by: Sedrick Morales DO 03/24/2024 07:02 PM EDT RP Chest X-Ray 03/24/24 20:30 IMPRESSION: Unremarkable examination. Electronically signed by: Robert Garcia DO 03/24/2024 09:50 PM EDT RP Renal Ultrasound 03/25/24 17:45 IMPRESSION: 1. There is a continued stable right renal upper pole mass lesion. The interim stability of the ultrasound examination 01/20/[address] examination of 07/16/2006 suggests a benign etiology. 2. A 6 mm nonobstructing right lower pole calculus is seen. Electronically signed by: Maninder Dubose MD 03/26/2024 06:01 PM EDT RP Discharge Plan Discharge Anticipated Discharge Date/Time: 03/30/24 10:19 Patient Disposition: Home Health Service Discharge Diagnosis: UTI, sepsis, urinary retention Referrals: [facility] [Outside] Zechariah Clark MD [Physician] - 2 Weeks Physician,Unknown J [Physician] - 1 Week Discharge Medications: New cefuroxime axetil 500 mg tablet 500 mg PO BID 7 Days Qty: 10 0RF Robitussin Cough-Chest Andi DM 10-200 mg capsule 1 tab-cap PO Q8H PRN (Reason: cough) Qty: 1 0RF Continued (DME) walker Misc See Rx Instructions .Route Qty: 1 0RF Rx Instructions: USE daily for lower extrem weakness/ankle sprain finasteride 5 mg tablet 5 mg PO DAILY Qty: 90 1RF lisinopril 10 mg tablet 10 mg PO DAILY phenytoin sodium extended 100 mg capsule 300 mg PO DAILY folic acid 1 mg tablet 1 mg PO DAILY tamsulosin 0.4 mg capsule 0.4 mg PO DAILY One-A-Day Men's 50 Plus(vit K) 400-20-370 mcg tablet 1 tab PO DAILY Discharge Orders: Discharge Order (Routine); Ordered 04/02/24 Ordered By: Addi Lieberman Diet: Advance to usual diet Activity on Discharge: As tolerated Stand Alone Forms: Patient Portal Discharge page Print Language: Guamanian Activity Restrictions/Additional Instructions: Augmentin for nasal fracture Care Plan Goals: recovery from sepsis and uti Health Concerns: uti sepis urinary retenton Plan of Treatment: take Cefuroxime as recommended follow up with urologist follow up with your doctor Assessment: see above Patient Instructions: Nasal Fracture (ED)
[2024-04-02] MEDS: guaiFENesin LA 600 MG TAB.ER.12H PO (13:27)
== END 2024-04-02 13:53 | disposition home health service (06) | DRG 872 ==
LOC: HO.ED 18:02 → HO.EDOVER 23:37 → HO.IMC 03-25 07:18 → HO.S3 03-25 17:37
PROVIDERS: Family Medicine; Nurse Practitioner Family; Admitting Provider Student in an Organized Health Care Education/Training Program; Emergency Provider Emergency Medicine Emergency Medical Services; PCP Nurse Practitioner Family; Visit Provider Internal Medicine
DX: A41.51 Sepsis due to Escherichia coli [E. coli] (principal); Q85.1 Tuberous sclerosis; Z23 Encounter for immunization; I10 Essential (primary) hypertension; M51.16 Intervertebral disc disorders with radiculopathy, lumbar region; N20.0 Calculus of kidney; N28.9 Disorder of kidney and ureter, unspecified; E86.0 Dehydration; N40.1 Benign prostatic hyperplasia with lower urinary tract symptoms; R39.14 Feeling of incomplete bladder emptying; G40.909 Epilepsy, unspecified, not intractable, without status epilepticus; Z87.891 Personal history of nicotine dependence; Z79.899 Other long term (current) drug therapy
CPT/HCPCS: 36415; 70450; 70486; 71046; 72125; 76775; 80048; 80053; 80307; 81001; 82947; 83605; 83735; 83880; 84484; 85025; 85027; 85610; 86140; 87040; 87086; 87088; 87186; 90656; 93005; 97110; 97116; 97162; 99285; J0696; J1650; J2405; J7120

== ENCOUNTER → 2024-03-24 17:45 | Outpatient (BNV) | payer SELFPAY | PROVIDERS: Emergency Provider Emergency Medicine Emergency Medical Services; Visit Provider Student in an Organized Health Care Education/Training Program | DX: N28.9 Disorder of kidney and ureter, unspecified (principal); N40.1 Benign prostatic hyperplasia with lower urinary tract symptoms; N39.0 Urinary tract infection, site not specified | CPT/HCPCS: 99223; 99231; 99232; 99239 ==

== ENCOUNTER → 2024-03-24 17:55 | Outpatient (BNV) | payer MEDICARE, SELFPAY | PROVIDERS: Admitting Provider Student in an Organized Health Care Education/Training Program; Emergency Provider Emergency Medicine Emergency Medical Services; Visit Provider Internal Medicine Cardiovascular Disease | DX: R55 Syncope and collapse (principal) | CPT/HCPCS: 93010 ==

== ENCOUNTER → 2024-03-24 23:04 | Outpatient (BNV) | payer MEDICARE, SELFPAY | PROVIDERS: Admitting Provider Student in an Organized Health Care Education/Training Program; Emergency Provider Emergency Medicine Emergency Medical Services; PCP Nurse Practitioner Family; Visit Provider Urology | DX: N20.0 Calculus of kidney (principal); N39.0 Urinary tract infection, site not specified; N40.1 Benign prostatic hyperplasia with lower urinary tract symptoms; N28.9 Disorder of kidney and ureter, unspecified | CPT/HCPCS: 99222 ==

== ENCOUNTER 2024-05-28 14:45 | Outpatient (AMB) | payer MEDICARE, SELFPAY ==
--- NOTE | 2024-05-28 14:47 | A.OFFPC_ITS ---
Vital Signs 05/28/24 14:50 Height 5 ft 9 in Weight 178 lb BMI 26.3 BP 136/76 Blood Pressure Location Lt brachial Position Sitting Pulse 71 Pulse Source Pulse Oximeter Pulse Oximetry (%) 100 Oxygen Delivery Method Room Air Intake Visit Reasons: follow up Intake Note: Pt is here today for Hospital follow up visit. Pt states that he fell couple times. Allergies No Known Allergies Allergy (Verified 05/28/24 15:14) Medication List - Last Reconciled 05/28/24 by LIS Gutiérrez- finasteride 5 mg PO DAILY folic acid 1 mg PO DAILY lisinopril 10 mg PO DAILY oqjsalxc-zzu-hbyit-vit K-lycop 400-20-370 mcg (One-A-Day Men's 50 Plus (with vitamin K)) 1 tab PO DAILY phenytoin sodium extended 300 mg PO DAILY tamsulosin 0.4 mg PO DAILY walker Wheeled walker Tobacco use date assessed: 05/28/24 Fall risk assessment: 2 + Falls in past year Last assessed Fall Risk: 05/28/24 Dental Screening Dental Screen Date: 05/28/24 HPI follow up HPI Details Chief Complaint No specific complaints; follow-up for blood pressure management. History of Present Illness The patient is a 68-year-old male presenting with essential hypertension. He is on a regimen of Lisinopril 10 mg daily, which has been effective in maintaining his blood pressure within normal limits. The patient denies any associated symptoms such as chest pain, shortness of breath, headache, or blurred vision. He also reports no episodes of edema. Regarding functional activity, he makes use of a cane for ambulation. The current antihypertensive medication seems well tolerated, and there have been no new side effects. The patient has experienced stable hypertension control with the current therapy. Social History - Functional Status: The patient uses a cane for mobility. Health Maintenance Review of Systems - Cardiovascular: Denies chest pain, keyla rtness of breath, or edema. - Neurological: Denies headache or blurr ed vision. Physical Exam General: Cooperative, healthy appearing, comfortable, no acute distress and well developed Orientation: Patient oriented and alert x3 Eyes: Appearance normal, both eyes and all related structures Neck: Normal visual inspection and Yes full ROM Respiratory: Lungs were fairly clear bilaterally Cardiovascular: Regular rate and rhythm. Normal S1 and S2, no edema GI: Normal to inspection. Soft to palpation and nontender Skin: No rashes or lesions noted Neuro: Patient oriented x3 Extremities: Normal to inspection, patient uses a cane Results Plan - Continue Lisinopril 10 mg daily for hy pertension control. - Monitor blood pressure at home to ensu re stability. - Evaluate for any potential side effect s periodically. Patient was informed and verbally consented to the use of an ambient scribe for clinic note documentation during this visit. Discussion Notes I discussed with the patient the current management of his essential hy pertension. The patient has shown good blood pressure control on Lisinopril and denies any significant symptoms or side effects. We reviewed the importance of continuing the medication as prescribed to maintain stable blood pressure and potentially prevent complications associated with hypertension. The patient did not express any concerns with the current treatment plan, and he understands the necessity for regular monitoring. Patient Instructions - Continue taking Lisinopril as prescrib ed. - Monitor blood pressure at home regular ly and record the readings. - Use the cane as needed for mobility gates pport. - Report any new symptoms such as dizzin ess, swelling, or breathing difficulty. [facility] Medical History (Updated 05/28/24 @ 15:11 by Maninder Fuller, [facility]) Prostate cancer Chronic radicular pain of lower back Lumbar disc disease Excessive cerumen in both ear canals Low vitamin B12 level Seizure HTN (hypertension) URI (upper respiratory infection) Tuberous sclerosis Family History (Updated 05/28/24 @ 14:57 by Pamela Peterson [facility]) Father Colon cancer Mother Stomach cancer Breast cancer Social History Household Members: Family Housing: House Do you presently have visiting nurse or other home services: No Patient Tobacco Use Status: Former Tobacco user Years Smoked: quit 1987 e-Cigarette/Vaping Use: Never Used Second Hand Smoke Exposure: No service: No Current occupational status: retired Cognitive needs: No Hearing needs: No Vision needs: No Questionnaire PHQ-9 Over the last 2 weeks, how often have you been bothered by any of the following problems? 1. Little interest or pleasure in doing things: not at all 2. Feeling down, depressed, or hopeless: not at all 3. Trouble falling or staying asleep, or sleeping too much: several days 4. Feeling tired or having little energy: not at all 5. Poor appetite or overeating: not at all 6. Feeling bad about yourself - or that you are a failure or have let yourself or your family down: not at all 7. Trouble concentrating on things, such as reading the newspaper or watching television: not at all 8. Moving or speaking so slowly that other people could have noticed. Or the opposite - being so fidgety or restless that you have been moving around a lot more than usual: not at all 9. Thoughts that you would be better off or of hurting yourself in some way: not at all Total score: 1 Depression Screening Interpretation: Negative Depression Screening Done: Yes 11735 - PHQ-9 Billing: Yes Source: Developed by Drs. Ayden Terry, Praveena Broderick, Alexei Tinsley and colleagues, with an educational wilfrido from [employer]. Thrive Questionnaire Date Thrive assessed: 05/28/24 I am a: Patient What is your living situation today?: I choose not to answer this question Within the past 12 months, did the food you bought not last and you didn't have the money to get more?: I choose not to answer this question Within the past 12 months, did you worry whether your food would run out before you got money to buy more?: Sometimes True Do you have trouble paying for medicines?: I choose not to answer this question Do you have trouble getting transportation to medical appointments?: I choose not to answer this question Do you have trouble paying your heating and electricity bill?: No Do you have trouble taking care of your child, family member or friend?: No Do you have trouble with day-to-day activities such as bathing, preparing meals, shopping, managing finances, etc.?: No Are you currently unemployed and looking for a job?: I choose not to answer this question Are you interested in more education?: I choose not to answer this question Please select the resources that you would like help with: Housing/Halfway Currently or been in a relationship where the following occur: No concerns reported THRIVE Score: 1 AUDIT C Alcohol Use Questionnaire (AUDIT-C) 1. How often do you have a drink containing alcohol?: Never 3. How often do you have six or more drinks on one occasion?: Never Total Score: 0 LIVE-7 AMB Questionnaire LIVE-7 Date LIVE - 7 assessed: 05/28/24 Feeling nervous, anxious, or on edge: 0 = Not at all Not being able to stop or control worryin = Not at all Worrying too much about different things: 0 = Not at all Trouble relaxin = Not at all Being so restless that it is hard to sit still: 0 = Not at all Becoming easily annoyed or irritable: 0 = Not at all Feeling afraid as if something awful might happen: 0 = Not at all Total LIVE-7 score (0-4 normal; 5-9 mild; 10-14 moderate; 15-21 severe): 0 Source: Developed by Drs. Ayden Terry, Praveena Broderick, Alexei Tinsley and colleagues, with an educational wilfrido from [employer]. LIVE-7 Assessment Billing LIVE-7 Assessment Tool: LIVE-7 Assessment 02339 Physical exam (Primary Care) Vital Signs: Last Vital Signs Pulse 71 05/28/24 14:50 BP 136/76 05/28/24 14:50 Pulse Ox 100 05/28/24 14:50 Oxygen Delivery Method Room Air 05/28/24 14:50 BMI result Body Mass Index 26.3 Tobacco/Smoking Status: Tobacco use Status Tobacco use date assessed 05/28/24 05/28/24 14:57 Patient Tobacco Use Status Former Tobacco user 05/28/24 14:49 e-Cigarette/Vaping Use Never Used 05/28/24 14:49 PHQ-9: PHQ-9 Score PHQ-9: Total score 1 05/28/24 15:31 Depression Screening Interpretation: Negative Thrive Assessment: Date of Thrive Assessment Date Thrive assessed 05/28/24 05/28/24 14:57 Currently or been in a relationship where the following occur: No concerns reported Immunizations pneumoc 20-thomas conj-dip cr(PF) 0.5 mL IM syringe Performing Provider: MARLENI Gutiérrez Performing Location: [facility] [place] [facility] Administered by: BARRETT Paz on 05/28/24 15:31 Dose Route Admin Location Dispensed Lot Number Expiration Date [facility] Inhalation Therapy Aide 0.5 mL IM Right Deltoid 0.5 mL [id number]/30/[id number] WYETH/PFIZER VIS Given Date VIS Provided VIS Publication Date 05/28/24 Single Vaccine 21 Eligibility Eligibility Date Funding Source Not [facility] Eligible 05/28/24 Private Coding Level of Care Code Est Pt Level 3 (28430) Diagnoses HTN (hypertension) I10 BPH loc w urin obs/LUTS N40.1 Prostate cancer C61 Additional Codes LIVE-7 Assessment Billing - LIVE-7 Assessment Tool: LIVE-7 Assessment 66554 ([id number]) PHQ-9 - 30204 - PHQ-9 Billing: Yes ([id number]) Assessment & Plan Assessment & Plan (1) HTN (hypertension): Code(s): I10 - Essential (primary) hypertension Category: Medical (2) BPH loc w urin obs/LUTS: Code(s): N40.1 - Benign prostatic hyperplasia with lower urinary tract symptoms Category: Medical (3) Prostate cancer: Code(s): C61 - Malignant neoplasm of prostate Category: Medical Plan . Orders: Orders TSH reflex Free T4 Today I10 - Essential (primary) hypertension Complete Blood Count Auto Diff Today I10 - Essential (primary) hypertension Comprehensive [place]. Panel Fast Today I10 - Essential (primary) hypertension UA CC w/rflx Micro + Cult Today I10 - Essential (primary) hypertension Lipid Panel Today I10 - Essential (primary) hypertension Pneumococcal 20 Immunization Today Z23 - Encounter for immunization Referrals Urology Referral C61 - Malignant neoplasm of prostate, N40.1 - Benign prostatic hyperplasia with lower urinary tract symptoms Cologuard Test Z12.11 - Encounter for screening for malignant neoplasm of colon, Z12.12 - Encounter for screening for malignant neoplasm of rectum Medications: New tamsulosin 0.4 mg PO DAILY 90 caps 0RF
[2024-05-28 14:50] VITALS: BP 136/76; PULSE 71; O2SAT 100; BMI 26.3
== END 2024-05-28 15:52 | disposition home or self-care (01) ==
PROVIDERS: PCP Nurse Practitioner Family; Visit Provider Nurse Practitioner Family
DX: I10 Essential (primary) hypertension (principal); N40.1 Benign prostatic hyperplasia with lower urinary tract symptoms; C61 Malignant neoplasm of prostate; Z23 Encounter for immunization

== ENCOUNTER → 2024-05-28 14:45 | Outpatient (BNVA) | payer MEDICARE, SELFPAY | PROVIDERS: PCP Nurse Practitioner Family; Visit Provider Nurse Practitioner Family | DX: I10 Essential (primary) hypertension (principal); N40.1 Benign prostatic hyperplasia with lower urinary tract symptoms; C61 Malignant neoplasm of prostate; Z23 Encounter for immunization; Z79.899 Other long term (current) drug therapy | CPT/HCPCS: 90471; 90677; 96127; 99212 ==

== ENCOUNTER 2024-06-16 13:38 | Outpatient (REF) | payer MEDICARE, SELFPAY ==
[2024-06-16 16:05] LABS: Appearance Urine Cloudy; Color Urine Yellow; Glucose Urine UA Negative (Negative); Leukocyte Esterase Urine Large (3+) (Negative); Nitrite Urine Positive (Negative); Specific Gravity - Urine 1.015 (1.005-1.025); UMIC TRIGGER UA YES; UMIC TRIGGER UACC YES; Urine Blood Moderate (2+) (Negative); Urine Ketones Negative (Negative); Urine Protein 30 (1+) mg/dL (Neg-Trace)
[2024-06-16 16:09] LABS: MANUAL DIFF FLAG NO
[2024-06-16 16:19] LABS: Basophils Absolute Auto 0.1 X10*3/uL (0.0-0.2); Basophils Percent Auto 0.7 % (0-2); Eosinophils Absolute Auto 0.2 X10*3/uL (0.0-0.4); Eosinophils Percent Auto 2.2 % (0-4); Hematocrit 36.7 % (42.0-52.0); Hemoglobin 12.5 g/dl (14.0-18.0); Imm Gran Abs Auto 0.05 X10*3/uL (0.00-0.03); Imm Gran Pct Auto 0.5 % (0.0-0.4); Lymphocytes Absolute Auto 2.1 X10*3/uL (1.2-4.9); Lymphocytes Percent Auto 21.2 % (20-40); Mean Corpuscular HGB Conc 34.1 g/dl (31.0-36.0); Mean Corpuscular Hemoglobin 30.8 pg (27.0-33.0); Mean Corpuscular Volume 90.4 fL (80.0-98.0); Mean Platelet Volume 9.9 fL (9.4-12.4); Monocytes Absolute Auto 0.7 X10*3/uL (0.1-1.2); Monocytes Percent Auto 7.1 % (2-11); Neutrophils Absolute Auto 6.7 x10*3/uL (2.0-8.3); Neutrophils Percent Auto 68.3 % (45-73); Platelet Count 280 X10*3/uL (160-400); Red Blood Count 4.06 X10*6/uL (4.60-5.80); Red Cell Distribution Width 12.4 % (11.0-16.0); White Blood Count 9.7 X10*3/uL (4.8-10.8)
[2024-06-16 16:22] LABS: Bacteria Urine 2+ (None Seen); Hyaline Casts Urine 0-2 /LPF (0-2); UACC Culture Trigger YES; WBC Urine 21-50 /HPF (0-5)
[2024-06-16 16:43] LABS: Alanine Aminotransferase 18 U/L (0-40); Albumin Level 4.1 g/dL (3.5-5.0); Alkaline Phosphatase 130 U/L (39-117); Anion Gap 7 (12-20); Aspartate Amino Transferase 19 U/L (5-37); Bilirubin Total 0.2 mg/dL (0.0-1.0); Blood Urea Nitrogen 16 mg/dL (9-16); Calcium 8.5 mg/dL (8.4-10.2); Carbon Dioxide 28 mmol/L (22-29); Chloride 108 mmol/L (96-108); Cholesterol 184 mg/dL (<200); Estimated Glomerular Filt Rate > 60; Glucose Fasting 76 mg/dL (60-99); HDL Cholesterol 50 mg/dL (>40); LDL Cholesterol Calculated 110 mg/dL (<100); Potassium 4.3 mmol/L (3.3-5.1); Sodium 139 mmol/L (135-145); Total Protein 7.3 g/dL (6.5-8.0); Triglycerides 120 mg/dL (<150)
[2024-06-16 17:00] LABS: TSH reflex Free T4 1.91 uIU/mL (0.32-4.0)
== END 2024-06-16 13:39 | disposition home or self-care (01) ==
LOC: HO.HMGCLDS 13:38
PROVIDERS: PCP Nurse Practitioner Family; Visit Provider Nurse Practitioner Family
DX: I10 Essential (primary) hypertension (principal); R30.0 Dysuria
CPT/HCPCS: 36415; 80053; 80061; 81001; 81003; 84443; 85025; 87086; 87088; 87186

== ENCOUNTER 2024-06-24 14:05 | Outpatient (REF) | payer MEDICARE, SELFPAY ==
[2024-06-24 16:09] LABS: Phenytoin Dilantin 14.9 ug/mL (10.0-20.0)
--- OUTSIDE RECORDS SUMMARY | 2024-06-24 16:24 | XMS_ITS | Encounter Summary ---
Author Organization [employer] Address [address] [place] [address] Care Team Providers Care Area Attendant Name Role Phone Julito Spaulding MD Primary Care Provider [phone]- [phone] Encounter Details Date Type Department Care Team (Late st Contact Info) Description 04/14/2024 Lab Requisition [facility] - Main Lab [address] [place] [address] Julito Spaulding MD [address] [place] [address] [phone] Weakness; Anemia, unspecified Social History Tobacco Use Types Packs/Day Years Used Date Smoking Tobacco: Never Assessed Sex and Gender Information Value Date Recorded Sex Assigned at Not on file Gender Identity Not on file Sexual Orientation Not on file documented as of this encounter Plan of Treatment Not on file documented as of this encounter Visit Diagnoses Diagnosis Weakness Other malaise and fatigue Anemia, unspecified documented in this encounter Care Teams Area Attendant Relationship Specialty Start Date End Date Julito Spaulding MD [address] [place] [id number] PCP - General Internal Medicine 04/06/24 documented as of this encounter
--- OUTSIDE RECORDS SUMMARY | 2024-06-24 16:24 | XMS_ITS | Encounter Summary ---
Author Organization [employer] Address [address] [place] [address] Care Team Providers Care Button Grader Name Role Phone Julito Spaulding MD Primary Care Provider +1- [phone] Encounter Details Date Type Department Care Team (Late st Contact Info) Description 04/06/2024 Lab Requisition [facility] - Main Lab [address] [place] [address] Julito Spaulding MD [address] [place] [address] Weakness; Anemia, unspecified Social History Tobacco Use Types Packs/Day Years Used Date Smoking Tobacco: Never Assessed Sex and Gender Information Value Date Recorded Sex Assigned at Not on file Gender Identity Not on file Sexual Orientation Not on file documented as of this encounter Plan of Treatment Not on file documented as of this encounter Procedures Procedure Name Priority Date/Time Associated Diagnosis Comments TRAVEL PHLEBOTOMY FEE Routine 04/07/2024 8:35 AM EST Weakness Anemia, unspecified CBC WITH AUTO DIFFERENTIAL Routine 04/07/2024 8:35 AM EST Weakness Anemia, unspecified CBC AND DIFFERENTIAL Routine 04/07/2024 8:35 AM EST Weakness Anemia, unspecified COMPREHENSIVE METABOLIC PANEL Routine 04/07/2024 8:35 AM EST Weakness Anemia, unspecified documented in this encounter Results * Travel phlebotomy fee (04/07/2024 8:35 AM EST) [facility] TRAVEL PHLEBOTOMY FEE Completed 04/07/2024 12:01 PM EST [facility] ([facility] [place] Blood Venous blood specimen / Unknown Venipuncture / Unknown 04/07/2024 8:35 AM EST 04/07/2024 11:54 AM EST Julito Spaulding MD LAB BLOOD ORDERABL ES [facility] [address] [place] [address], * (ABNORMAL) CBC auto differential (04/07/2024 8:35 AM EST) WBC 7.9 4.8 - 10.8 K/mcL LAB HEMETOLOGY METHOD 04/07/2024 12:32 PM [facility] RBC 3.90(L) 4.50 - 5.50 M/mcL LAB HEMETOLOGY METHOD 04/07/2024 12:32 PM [facility] Hemoglobin 12.1(L) 13.5 - 17.5 g/dL LAB HEMETOLOGY METHOD 04/07/2024 12:32 PM [facility] Hematocrit 36.4(L) 42.0 - 54.0 % LAB HEMETOLOGY METHOD 04/07/2024 12:32 PM [facility] MCV 93.1 79.0 - 98.0 FL LAB HEMETOLOGY METHOD 04/07/2024 12:32 PM [facility] MCH 30.9 27.0 - 32.0 pcg LAB HEMETOLOGY METHOD 04/07/2024 12:32 PM [facility] MCHC 33.2 32.0 - 37.0 g/dL LAB HEMETOLOGY METHOD 04/07/2024 12:32 PM [facility] RDW 12.5 11.0 - 15.0 % LAB HEMETOLOGY METHOD 04/07/2024 12:32 PM [facility] Platelets 330 130 - 400 K/mcL LAB HEMETOLOGY METHOD 04/07/2024 12:32 PM EST [facility] MPV 9.9 7.0 - 11.0 FL LAB HEMETOLOGY METHOD 04/07/2024 12:32 PM [facility] NRBC 0.0 <1.0 % LAB HEMETOLOGY METHOD 04/07/2024 12:32 PM [facility] NRBC Absolute 0.00 <0.10 K/mcL LAB HEMETOLOGY METHOD 04/07/2024 12:32 PM [facility] Neutrophils Relative 69.7 % LAB HEMETOLOGY METHOD 04/07/2024 12:32 PM [facility] Lymphocytes Relative 21.5 % LAB HEMETOLOGY METHOD 04/07/2024 12:32 PM [facility] Monocytes Relative 6.0 % LAB HEMETOLOGY METHOD 04/07/2024 12:32 PM [facility] Eosinophils Relative 1.8 % LAB HEMETOLOGY METHOD 04/07/2024 12:32 PM [facility] Basophils Relative 0.5 % LAB HEMETOLOGY METHOD 04/07/2024 12:32 PM [facility] Immature Granulocytes Relative 0.5 % LAB HEMETOLOGY METHOD 04/07/2024 12:32 PM [facility] Neutrophils Absolute 5.49 1.50 - 7.00 K/mcL LAB HEMETOLOGY METHOD 04/07/2024 12:32 PM [facility] Lymphocytes Absolute 1.69 1.00 - 5.00 K/mcL LAB HEMETOLOGY METHOD 04/07/2024 12:32 PM [facility] Monocytes Absolute 0.47 0.20 - 1.00 K/mcL LAB HEMETOLOGY METHOD 04/07/2024 12:32 PM [facility] Eosinophils Absolute 0.14 0.00 - 0.50 K/mcL LAB HEMETOLOGY METHOD 04/07/2024 12:32 PM [facility] Basophils Absolute 0.04 0.00 - 0.20 K/mcL LAB HEMETOLOGY METHOD 04/07/2024 12:32 PM [facility] Immature Granulocytes Absolute 0.04(H) 0.00 - 0.03 K/[facility] LAB HEMETOLOGY METHOD 04/07/2024 12:32 PM [facility] Blood Venous blood specimen / Unknown Venipuncture / Unknown 04/07/2024 8:35 AM EST 04/07/2024 11:54 AM EST Julito Spaulding MD LAB BLOOD ORDERABL ES [facility] [address] [place] [address], * Comprehensive metabolic panel (04/07/2024 8:35 AM EST) Sodium 139 133 - 145 mmol/L LAB CHEMISTRY METHOD 04/07/2024 2:50 PM [facility] Potassium 4.6 3.5 - 5.5 mmol/L LAB CHEMISTRY METHOD 04/07/2024 2:50 PM [facility] Chloride 108 96 - 110 mmol/L LAB CHEMISTRY METHOD 04/07/2024 2:50 PM [facility] CO2 26 21 - 32 mmol/L LAB CHEMISTRY METHOD 04/07/2024 2:50 PM [facility] Anion Gap 5 3 - 11 LAB CHEMISTRY METHOD 04/07/2024 2:50 PM [facility] Glucose 74 70 - 100 mg/dL LAB CHEMISTRY METHOD 04/07/2024 2:50 PM [facility] BUN 20 5 - 25 mg/dL LAB CHEMISTRY METHOD 04/07/2024 2:50 PM [facility] Creatinine 0.86 0.70 - 1.30 mg/dL LAB CHEMISTRY METHOD 04/07/2024 2:50 PM [facility] eGFR 94 >=60 mL/min/1. 73m2 LAB CHEMISTRY METHOD 04/07/2024 2:50 PM [facility] Comment:Calculation based on the??Chronic Kidney Disease Epidemiology Collaboration (CKD-EPI) equation refit??without adjustment for race. BUN/Creatinine Ratio 23.3 LAB CHEMISTRY METHOD 04/07/2024 2:50 PM [facility] Calcium 9.4 8.5 - 10.5 mg/dL LAB CHEMISTRY METHOD 04/07/2024 2:50 PM [facility] AST (SGOT) 18 10 - 42 unit/L LAB CHEMISTRY METHOD 04/07/2024 2:50 PM [facility] ALT (SGPT) 33 10 - 60 unit/L LAB CHEMISTRY METHOD 04/07/2024 2:50 PM [facility] Alkaline Phosphatase 118 42 - 121 unit/L LAB CHEMISTRY METHOD 04/07/2024 2:50 PM [facility] Total Protein 6.8 6.0 - 8.0 g/dL LAB CHEMISTRY METHOD 04/07/2024 2:50 PM [facility] Albumin 3.6 3.2 - 5.0 g/dL LAB CHEMISTRY METHOD 04/07/2024 2:50 PM [facility] Total Bilirubin 0.2 0.0 - 1.4 mg/dL LAB CHEMISTRY METHOD 04/07/2024 2:50 PM [facility] Blood Venous blood specimen / Unknown Venipuncture / Unknown 04/07/2024 8:35 AM EST 04/07/2024 11:54 AM EST Julito Spaulding MD LAB BLOOD ORDERABL ES [facility] [address] [place] [address], documented in this encounter Visit Diagnoses Diagnosis Weakness Other malaise and fatigue Anemia, unspecified documented in this encounter Care Teams Button Grader Relationship Specialty Start Date End Date Julito Spaulding MD [address] [place] [address] PCP - General Internal Medicine 04/06/24 documented as of this encounter
--- OUTSIDE RECORDS SUMMARY | 2024-06-24 16:24 | XMS_ITS | Patient Health Record ---
Author Organization [facility] Address [address] [place] [address] Care Team Providers Care Pediatrician Active Practice Name Role Phone Vaughn Cifuentes MD Primary Care Provider Trisha Vallecillo Unavailable [phone] Reason For Referral No Information Medications Medication SIG (Take, Route, Frequency, Duration) Notes Start Date End Date Status Finasteride Active Phenytoin 100 mg Orally Three times a day Active Complex B-100 Active Folic Acid Active vitamin Active Lisinopril & Diet Manage Prod Active Problems Problem Type SNOMED Code ICD Code Onset Dates Problem Status W/U Status Risk Notes Problem Neurofibromatos is, 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, 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 (28078320606120 102) Congenital pes planus, right foot (Q66.51) Active confirmed Problem Congenital pes planus of left foot (97362516390356 103) Congenital pes planus, left foot (Q66.52) Active confirmed Plan Of Treatment No Information Insurance Providers Payer Name Payer Address Payer Phone Subscriber Number Group Number Insured Name Patient Relationship to Insured Coverage Start Date Coverage End Date Medicare National [employer] [address] [facility] [id number] [phone] [id number] Nayan Aly Self - patient is the insured do not use [address] [address] [phone] [id number] Nayan Aly Self - patient is the insured Medical (General) History Medical History History ICD Code Neurofibromatosis 1 mumps measles chicken pox hypertension epilepsy Back,Hip,and Knee pain Seizures Surgical History Surgery Date(Month/Year) ankle surgery 2002 leg surgery 2002 fibroid removal 2010
== END 2024-06-24 14:06 | disposition home or self-care (01) ==
LOC: HO.LAB 14:05
PROVIDERS: PCP Nurse Practitioner Family; Visit Provider Registered Nurse
DX: G40.909 Epilepsy, unspecified, not intractable, without status epilepticus (principal)
CPT/HCPCS: 36415; 80185

== ENCOUNTER 2024-07-03 14:34 | Outpatient (AMB) | payer MEDICARE, SELFPAY ==
--- OUTSIDE RECORDS SUMMARY | 2024-07-03 14:35 | XMS_ITS | Clinical Summary ---
Author Organization [address] [facility] Address [address] [place] [address] Phone Care Team Providers Care Cook Ship Name Role Phone Julito Spaulding MD Primary Care Provider +1- [phone] Encounters Date Type Department Care Team Description 04/14/[address] [facility] Lab [address] [place] [address] Julito Spaulding MD Weakness; Anemia, unspecified 04/06/[address] [facility] [address] [place] [address] Julito Spaulding MD Weakness; Anemia, unspecified from Last 3 Months Social History Tobacco Use Types Packs/Day Years Used Date Smoking Tobacco: Never Assessed Sex and Gender Information Value Date Recorded Sex Assigned at Not on file Gender Identity Not on file Sexual Orientation Not on file Plan of Treatment Health Maintenance Due Date Last Done Comments DTaP,Tdap,and Td Vaccines (1 - Tdap) 1973 Zoster Vaccines (1 of 2) 2004 Pneumococcal Vaccine: 65+ Ye ars (1 of 1 - PCV) 08/18/2019 COVID-19 Vaccine ( - 2023-2 5 season) 2024 Influenza Vaccine (#1) 2024 Abdominal Aortic Aneurysm (A AA) Screen 04/07/2024 Cholesterol Screening (Lipid Panel) 04/07/2024 Colorectal Cancer Screening: Colonoscopy 04/07/2024 Depression Screening 04/07/2024 Falls Risk Assessment 04/07/2024 Hepatitis C Screening 04/07/2024 Medicare Annual Wellness Visit 04/07/2024 Social Influencers of Health Screening 04/07/2024 RSV Immunization Patients 60 + Years Old (1 - 1-dose 75+ series) 2029 HIB Vaccines Aged Out No longer eligi ble based on patient's age to complete this topic HPV Vaccines Aged Out No longer eligi ble based on patient's age to complete this topic Hepatitis A Vaccines Aged Out No long er eligible based on patient's age to complete this topic Hepatitis B Vaccines Aged Out No long er eligible based on patient's age to complete this topic IPV Vaccines Aged Out No longer eligi ble based on patient's age to complete this topic MMR Vaccines Aged Out No longer eligi ble based on patient's age to complete this topic Meningococcal ACWY Vaccine Aged Out N o longer eligible based on patient's age to complete this topic RSV Immunization Patients Un gretchen 20 months Aged Out No longer eligible b ased on patient's age to complete this topic Varicella Vaccines Aged Out No longer eligible based on patient's age to complete this topic Procedures Procedure Name Priority Date/Time Associated Diagnosis Comments TRAVEL PHLEBOTOMY FEE Routine 04/07/2024 8:35 AM EST Weakness Anemia, unspecified CBC WITH AUTO DIFFERENTIAL Routine 04/07/2024 8:35 AM EST Weakness Anemia, unspecified COMPREHENSIVE METABOLIC PANEL Routine 04/07/2024 8:35 AM EST Weakness Anemia, unspecified CBC AND DIFFERENTIAL Routine 04/07/2024 8:35 AM EST Weakness Anemia, unspecified from Last 3 Months Results * Travel phlebotomy fee (04/07/2024 8:35 AM EST) [facility] TRAVEL PHLEBOTOMY FEE Completed 04/07/2024 12:01 PM EST [facility] Blood Venous blood specimen / Unknown Venipuncture / Unknown 04/07/2024 8:35 AM EST 04/07/2024 11:54 AM EST Julito Spaulding MD LAB BLOOD ORDERABL ES [facility] [address] [place] [address], * (ABNORMAL) CBC auto differential (04/07/2024 8:35 AM EST) [facility] WBC 7.9 4.8 - 10.8 K/mcL LAB HEMETOLOGY METHOD 04/07/2024 12:32 PM [facility] RBC 3.90(L) 4.50 - 5.50 M/mcL LAB HEMETOLOGY METHOD 04/07/2024 12:32 PM [facility] Hemoglobin 12.1(L) 13.5 - 17.5 g/dL LAB HEMETOLOGY METHOD 04/07/2024 12:32 PM [facility] Hematocrit 36.4(L) 42.0 - 54.0 % LAB HEMETOLOGY METHOD 04/07/2024 12:32 PM [facility] MCV 93.1 79.0 - 98.0 FL LAB HEMETOLOGY METHOD 04/07/2024 12:32 PM [facility] MCH 30.9 27.0 - 32.0 pcg LAB HEMETOLOGY METHOD 04/07/2024 12:32 PM [facility] MCHC 33.2 32.0 - 37.0 g/dL LAB HEMETOLOGY METHOD 04/07/2024 12:32 PM [facility] RDW 12.5 11.0 - 15.0 % LAB HEMETOLOGY METHOD 04/07/2024 12:32 PM [facility] Platelets 330 130 - 400 K/mcL LAB HEMETOLOGY METHOD 04/07/2024 12:32 PM [facility] MPV 9.9 7.0 - 11.0 FL LAB HEMETOLOGY METHOD 04/07/2024 12:32 PM [facility] NRBC 0.0 <1.0 % LAB HEMETOLOGY METHOD 04/07/2024 12:32 PM [facility] NRBC Absolute 0.00 <0.10 K/mcL LAB HEMETOLOGY METHOD 04/07/2024 12:32 PM [facility] Neutrophils Relative 69.7 % LAB HEMETOLOGY METHOD 04/07/2024 12:32 PM [facility] Lymphocytes Relative 21.5 % LAB HEMETOLOGY METHOD 04/07/2024 12:32 PM [facility] Monocytes Relative 6.0 % LAB HEMETOLOGY METHOD 04/07/2024 12:32 PM [facility] Eosinophils Relative 1.8 % LAB HEMETOLOGY METHOD 04/07/2024 12:32 PM [facility] Basophils Relative 0.5 % LAB HEMETOLOGY METHOD 04/07/2024 12:32 PM [facility] Immature Granulocytes Relative 0.5 % LAB HEMETOLOGY METHOD 04/07/2024 12:32 PM [facility] Neutrophils Absolute 5.49 1.50 - 7.00 K/mcL LAB HEMETOLOGY METHOD 04/07/2024 12:32 PM [facility] Lymphocytes Absolute 1.69 1.00 - 5.00 K/mcL LAB HEMETOLOGY METHOD 04/07/2024 12:32 PM [facility] Monocytes Absolute 0.47 0.20 - 1.00 K/mcL LAB HEMETOLOGY METHOD 04/07/2024 12:32 PM [facility] Eosinophils Absolute 0.14 0.00 - 0.50 K/mcL LAB HEMETOLOGY METHOD 04/07/2024 12:32 PM [facility] Basophils Absolute 0.04 0.00 - 0.20 K/mcL LAB HEMETOLOGY METHOD 04/07/2024 12:32 PM [facility] Immature Granulocytes Absolute 0.04(H) 0.00 - 0.03 K/mcL LAB HEMETOLOGY METHOD 04/07/2024 12:32 PM [facility] Blood Venous blood specimen / Unknown Venipuncture / Unknown 04/07/2024 8:35 AM EST 04/07/2024 11:54 AM EST Julito Spaulding MD LAB BLOOD ORDERABL ES [facility] [address] [place] [address], [place] [phone] * Comprehensive metabolic panel (04/07/2024 8:35 AM EST) Sodium 139 133 - 145 mmol/L LAB CHEMISTRY METHOD 04/07/2024 2:50 PM [facility] Potassium 4.6 3.5 - 5.5 mmol/L LAB CHEMISTRY METHOD 04/07/2024 2:50 PM [facility] Chloride 108 96 - 110 mmol/L LAB CHEMISTRY METHOD 04/07/2024 2:50 PM [facility] CO2 26 21 - 32 mmol/L LAB CHEMISTRY METHOD 04/07/2024 2:50 PM [facility] Anion Gap 5 3 - 11 LAB CHEMISTRY METHOD 04/07/2024 2:50 PM [facility] Glucose 74 70 - 100 mg/dL LAB CHEMISTRY METHOD 04/07/2024 2:50 PM [facility] BUN 20 5 - 25 mg/dL LAB CHEMISTRY METHOD 04/07/2024 2:50 PM [facility] Creatinine 0.86 0.70 - 1.30 mg/dL LAB CHEMISTRY METHOD 04/07/2024 2:50 PM [facility] eGFR 94 >=60 mL/min/1. 73m2 LAB CHEMISTRY METHOD 04/07/2024 2:50 PM [facility] Comment:Calculation based on the??Chronic Kidney Disease Epidemiology Collaboration (CKD-EPI) equation refit??without adjustment for race. BUN/Creatinine Ratio 23.3 LAB CHEMISTRY METHOD 04/07/2024 2:50 PM [facility] Calcium 9.4 8.5 - 10.5 mg/dL LAB CHEMISTRY METHOD 04/07/2024 2:50 PM EST [facility] AST (SGOT) 18 10 - 42 unit/L LAB CHEMISTRY METHOD 04/07/2024 2:50 PM [facility] ALT (SGPT) 33 10 - 60 unit/L LAB CHEMISTRY METHOD 04/07/2024 2:50 PM [facility] Alkaline Phosphatase 118 42 - 121 unit/L LAB CHEMISTRY METHOD 04/07/2024 2:50 PM [facility] Total Protein 6.8 6.0 - 8.0 g/dL LAB CHEMISTRY METHOD 04/07/2024 2:50 PM [facility] Albumin 3.6 3.2 - 5.0 g/dL LAB CHEMISTRY METHOD 04/07/2024 2:50 PM [facility] Total Bilirubin 0.2 0.0 - 1.4 mg/dL LAB CHEMISTRY METHOD 04/07/2024 2:50 PM EST [facility] Blood Venous blood specimen / Unknown Venipuncture / Unknown 04/07/2024 8:35 AM EST 04/07/2024 11:54 AM EST Julito Spaulding MD LAB BLOOD ORDERABL ES [facility] [address] [place] [address], from Last 3 Months Care Teams Cook Ship Relationship Specialty Start Date End Date Julito Spaulding MD [address] [place] [address] PCP - General Internal Medicine 04/06/24
--- OUTSIDE RECORDS SUMMARY | 2024-07-03 14:35 | XMS_ITS | Encounter Summary ---
Author Organization [employer] Address [address] [place] [address] Care Team Providers Care System Technologist Name Role Phone Julito Spaulding MD Primary Care Provider +1- [phone] Encounter Details Date Type Department Care Team (Late st Contact Info) Description 04/14/2024 Lab Requisition [facility] - Main Lab [address] [facility] [place] [address] Julito Spaulding MD [address] [place] [id number] Weakness; Anemia, unspecified Social History Tobacco Use [...] unspecified documented in this encounter Care Teams System Technologist Relationship Specialty Start Date End Date Julito Spaulding MD [address] [place] [phone] PCP - General Internal Medicine 04/06/24 documented as of this encounter
--- NOTE | 2024-07-03 14:42 | MHC.OFFVIS ---
Intake Visit Reasons: renal lesion, hx of prostate cancer and lower UTI Intake Note: Patient is present for RENAL LESION,HX OF PROSTATE CANCER AND LOWER UTI Urology Medication:TAMSULOSIN,FINASTERIDE Antibiotic Allergy:NONE Blood Thinner:NONE Animal Herder Required: No Allergies No Known Allergies Allergy (Verified 07/03/24 14:43) HPI Comments Details: Nayan is a pleasant male. He is a patient of Dr. Kinney. He is seen for the following urologic conditions - renal cysts - prostate cancer? Had MRI/PET-CT done at [facility] Office cystoscopy - waking 4 times at night Known 100 g prostate Lower urinary tract symptoms Progressive urgency and frequency Has been placed on combination therapy Finasteride and tamsulosin Renal cyst Imaging with right renal cyst and 2 cm hyperdense cyst stable since 2006 Prostate cancer - grade group 2, low volume 03/14 - initially managed [facility] Urolog PSA - 06/22 1.8, 11/23 2.9 Had been followed at [facility] Imaging - 07/27 MRI 100 g prostate, no PI-RADS 4/5, 1.2 cm pelvic lymph node noted with recommendation for PET-CT [facility] Medical History (Updated 06/17/24 @ 12:28 by Maninder Fuller, [facility]-) Prostate cancer Chronic radicular pain of lower back Lumbar disc disease Excessive cerumen in both ear canals Low vitamin B12 level Seizure HTN (hypertension) URI (upper respiratory infection) Tuberous sclerosis Family History (Updated 05/28/24 @ 14:57 by BARRETT Paz) Father Colon cancer Mother Stomach cancer Breast cancer Social History Household Members: Family Housing: House Do you presently have visiting nurse or other home services: No Patient Tobacco Use Status: Former Tobacco user Years Smoked: quit 1987 e-Cigarette/Vaping Use: Never Used Second Hand Smoke Exposure: No service: No Current occupational status: retired Cognitive needs: No Hearing needs: No Vision needs: No Review of Systems Const Denies chills and Denies fever(s) Card Reports no additional complaints and Denies syncope Resp Denies cough GI Denies abdominal pain and Denies heartburn Reports as per HPI and Denies change in libido Neuro Denies syncope Psych Denies change in libido Endo Denies change in libido Physical Exam Const General: cooperative, healthy appearing, comfortable and no acute distress Orientation/consciousness: patient oriented x3 HEENT Face and sinus: Yes normal facial exam Mouth: moist mucous membranes Neck Neck: Yes normal visual inspection, Yes full ROM and Yes trachea midline Chest Chest palpation & inspection: normal inspection of the chest Resp Effort & Inspection: normal respiratory effort, able to speak in complete sentences and no respiratory distress GI Inspection: Yes normal to inspection Back/Spine/Pelvis Cervical Spine: normal cervical lordosis Thoracic/Lumbar Spine: thoracic and lumbar spine normal to inspection Skin General skin exam: no rashes or lesions noted Neuro General: patient oriented x3, gait normal, tone normal and moves all extremities Extrem General: Yes normal to inspection and Yes capillary refill normal Results AMB Urinalysis, Automated UA Leukoctes 0 Guerrero/uL Last Edit by CLARISA Dutta on 07/03/24 15:37 UA Nitrite Negative Last Edit by CLARISA Dutta on 07/03/24 15:37 UA Urobilinogen 0.2 mg/dL Last Edit by Mel Patel CCM on 07/03/24 15:37 UA Protein 0 mg/dL Last Edit by CLARISA Dutta on 07/03/24 15:37 UA pH 6.0 Last Edit by Mel Patel CCM on 07/03/24 15:37 UA Blood 10 Jose/uL Last Edit by Mel Patel CCM on 07/03/24 15:37 UA Specific [place] 1.020 Last Edit by CLARISA Dutta on 07/03/24 15:37 UA Ketone Negative Last Edit by CLARISA Dutta on 07/03/24 15:37 UA Bilirubin 0 mg/dL Last Edit by CLARISA Dutta on 07/03/24 15:37 UA Glucose 0 mg/dL Last Edit by Mel Patel CCM on 07/03/24 15:37 Results Reviewed Results Reviewed: Laboratory Last Values Urine pH (Auto) 6.0 07/03/24 15:36 Specific [place] (Auto) 1.020 07/03/24 15:36 Urine Protein (Auto) 0 mg/dL 07/03/24 15:36 Glucose (UA)(Auto) 0 mg/dL 07/03/24 15:36 Urine Ketones (Auto) Negative 07/03/24 15:36 Urine Blood (Auto) 10 Jose/uL 07/03/24 15:36 Urine Nitrite (Auto) Negative 07/03/24 15:36 Urine Bilirubin (Auto) 0 mg/dL 07/03/24 15:36 Urine Urobilinogen (Auto) 0.2 mg/dL 07/03/24 15:36 Leukocyte Esterase (Auto) 0 Guerrero/uL 07/03/24 15:36 Assessment & Plan Assessment & Plan (1) Prostate cancer: Code(s): C61 - Malignant neoplasm of prostate Category: Medical (2) Right renal stone: Code(s): N20.0 - Calculus of kidney Category: Medical (3) BPH loc w urin obs/LUTS: Code(s): N40.1 - Benign prostatic hyperplasia with lower urinary tract symptoms Category: Medical Plan Plan office cystoscopy G Code G2211 Has been applied in accordance with CMS guidelines ( Medicare and Medicaid programs; [place] 2023 Payment Policies ) to convey the inherent complexity in ongoing patient care within the urology clinic. This deliberate utilization aligns with the visits complexity associated with medical care services serving as a focal point for necessary healthcare, addressing the patient's singular serious or complex condition. This judicious use ensure was appropriate reimbursement, especially in the context of managing such conditions within our specialized, longitudinal urologic practice. This patient has a complex and chronic urologic condition that requires longitudinal follow-up. [facility], Medicare and Medicaid programs; [place] 2023 Payment Policies Fed. Reg 88 (58): 22821-82912 (Jan.072022) Orders: Orders AMB Urinalysis Automated Today Z13.9 - Encounter for screening, unspecified Patient Instructions: Imaging studies, laboratory and physical exam results were discussed and reviewed in detail. No major barriers to patient understanding were identified. An opportunity to ask questions regarding the treatment plan was provided. All questions were answered. The patient expressed understanding and agreement with the above treatment plan. The patient is aware they should contact our office by phone for worsening of their current condition or the appearance of new urologic symptoms. Compliance is encouraged with any medications and followup testing that is ordered. It is a privilege to participate in the urologic care of your patient. If you have any questions or concerns regarding treatment for the above conditions, or other urologic issues, please do not hesitate to contact me. The office telephone contact is [phone]. This note is constructed using voice recognition software. While every effort has been made to ensure accuracy farmworker machine errors may have been included. Yours sincerely, Dr Zaheer Ramsey MD, [facility] - Urology Providers of Expert, Compassionate Care for the Genitourinary System Coding Level of Care Code New Pt Level 4 (81670) Complex EM visit Add On G2211 Diagnoses Prostate cancer C61 Right renal stone N20.0 BPH loc w urin obs/LUTS N40.1
== END 2024-07-03 16:12 | disposition home or self-care (01) ==
LOC: HO.HUSH 14:34
PROVIDERS: PCP Nurse Practitioner Family; Visit Provider Urology
DX: C61 Malignant neoplasm of prostate (principal); N20.0 Calculus of kidney; N40.1 Benign prostatic hyperplasia with lower urinary tract symptoms; Z13.9 Encounter for screening, unspecified
CPT/HCPCS: 99204; G2211

== ENCOUNTER → 2024-07-03 14:34 | Outpatient (BNVA) | payer MEDICARE, SELFPAY | PROVIDERS: PCP Nurse Practitioner Family; Visit Provider Urology | DX: C61 Malignant neoplasm of prostate (principal); N20.0 Calculus of kidney; N40.1 Benign prostatic hyperplasia with lower urinary tract symptoms | CPT/HCPCS: 81003; 99202 ==

== ENCOUNTER 2024-07-14 14:55 | Outpatient (AMB) | payer MEDICARE, SELFPAY ==
--- NOTE | 2024-07-14 14:58 | A.OFFVIS_ITS ---
Intake Visit Reasons: Cysto(BPH) Intake Note: Patient is present for Cystoscopy Urology Medication:FINASTERIDE,TAMSULOSIN Antibiotic Allergy:NONE Blood Thinner:VITAMIN K Lot:[id number] Exp:04/06/27 Sanitary Chemist Required: No Allergies No Known Allergies Allergy (Verified 07/14/24 14:58) HPI Comments Details: Nayan is a pleasant male. He is a patient of Dr. Kinney. He is seen for the following urologic conditions - renal cysts - prostate cancer? Had MRI/PET-CT done at [place] Plan Office cystoscopy - waking 4 times at night Known 100 g prostate Episode of urosepsis 03/26 Cystoscopy today with ball-valve prostate Recommend GreenLight laser Will be planned Lower urinary tract symptoms Progressive urgency and frequency Has been placed on combination therapy Finasteride and tamsulosin Renal cyst Imaging with right renal cyst and 2 cm hyperdense cyst stable since 2006 Prostate cancer - grade group 2, low volume 03/14 - initially managed [facility] Urolog PSA - 06/22 1.8, 11/23 2.9 Had been followed at [facility] Urolog Imaging - 07/27 MRI 100 g prostate, no PI-RADS 4/5, 1.2 cm pelvic lymph node noted with recommendation for PET-CT [facility] Medical History (Updated 07/14/24 @ 15:45 by Zaheer Ramsey MD) Prostate cancer Chronic radicular pain of lower back Lumbar disc disease Excessive cerumen in both ear canals Low vitamin B12 level Seizure HTN (hypertension) URI (upper respiratory infection) Tuberous sclerosis Family History (Updated 05/28/24 @ 14:57 by BARRETT Paz) Father Colon cancer Mother Stomach cancer Breast cancer Social History Household Members: Family Housing: House Do you presently have visiting nurse or other home services: No Patient Tobacco Use Status: Former Tobacco user Years Smoked: quit 1987 e-Cigarette/Vaping Use: Never Used Second Hand Smoke Exposure: No service: No Current occupational status: retired Cognitive needs: No Hearing needs: No Vision needs: No Review of Systems Const Denies chills and Denies fever(s) Card Reports no additional complaints and Denies syncope Resp Denies cough GI Denies abdominal pain and Denies heartburn Reports as per HPI and Denies change in libido Neuro Denies syncope Psych Denies change in libido Endo Denies change in libido Physical Exam Const General: cooperative, healthy appearing, comfortable and no acute distress Orientation/consciousness: patient oriented x3 HEENT Face and sinus: Yes normal facial exam Mouth: moist mucous membranes Neck Neck: Yes normal visual inspection, Yes full ROM and Yes trachea midline Chest Chest palpation & inspection: normal inspection of the chest Resp Effort & Inspection: normal respiratory effort, able to speak in complete sentences and no respiratory distress GI Inspection: Yes normal to inspection Back/Spine/Pelvis Cervical Spine: normal cervical lordosis Thoracic/Lumbar Spine: thoracic and lumbar spine normal to inspection Skin General skin exam: no rashes or lesions noted Neuro General: patient oriented x3, gait normal, tone normal and moves all extremities Extrem General: Yes normal to inspection and Yes capillary refill normal Office Procedures Cystoscopy Consent Discussed risk and benefit or proposed procedure with the patient. Information consent for procedure given to the patient. Discussed technical aspects, risks, benefits and alternatives in full. Addressed all of the patient's questions and concerns regarding the procedure. The patient demonstrated knowledge and understanding. They wish to proceed with this procedure. Preparation The patient was prepped in the usual manner. A critical systems technician was present and in the room. Genitalia was prepped with betadine solution in a sterile manner. Lidocaine Jelly 2% was placed into the urethra and 16Fr flexible Olympus cystoscope was inserted into the meatus after adequate lubrication. Procedure Cystoscopy performed using a disposable Urovue digital 16 [place] cystoscope. Meatus circumcised Urethra anterior and posterior urethra normal Prostatic Urethra trilobar hyperplasia with bladder extension of median lobe Bladder examination with retroflexion of cystoscope Bladder Orifices normal shape and position Bladder Capacity median Trabeculations grade 2 Cellule Formation yes Diverticulum Formation - Mucosal Erythema - Bladder Tumor - 19540-[id number] DISPOSABLE SCOPE URO-G FLEXIBLE SCOPE Procedure code (CPT) selection complete Office Meds lidocaine HCl 2 % mucosal jelly in applicator Performing Provider: Zaheer Ramsey MD Performing Location: [facility] [place] [facility] Administered by: Makayla Paris RN on 07/14/24 15:27 Dose Route Admin Location Dispensed Lot Number Expiration Date [facility] Account Services Associate 10 mL intra-urethral 10 mL nitrofurantoin monohydrate/macrocrystals 100 mg capsule Performing Provider: Zaheer Ramsey MD Performing Location: [facility] [place] [facility] Administered by: Makayla Paris RN on 07/14/24 15:27 Dose Route Admin Location Dispensed Lot Number Expiration Date [facility] Account Services Associate 100 mg PO 1 cap Results AMB Urinalysis, Automated UA Leukoctes 0 Guerrero/uL Last Edit by CLARISA Dutta on 07/14/24 15:20 UA Nitrite Negative Last Edit by CLARISA Dutta on 07/14/24 15:20 UA Urobilinogen 3.5 mg/dL Last Edit by CLARISA Dutta on 07/14/24 15:2 0 UA Protein 15 mg/dL Last Edit by CLARISA Dutta on 07/14/24 15:20 UA pH 6.0 Last Edit by CLARISA Dutta on 07/14/24 15:20 UA Blood 0 Jose/uL Last Edit by CLARISA Dutta on 07/14/24 15:20 UA Specific [place] 1.020 Last Edit by CLARISA Dutta on 07/14/24 15: 20 UA Ketone Negative Last Edit by CLARISA Dutta on 07/14/24 15:20 UA Bilirubin 0 mg/dL Last Edit by CLARISA Dutta on 07/14/24 15:20 UA Glucose 0 mg/dL Last Edit by CLARISA Dutta on 07/14/24 15:20 Results Reviewed Results Reviewed: Laboratory Last Values Urine pH (Auto) 6.0 07/14/24 15:19 Specific [place] (Auto) 1.020 07/14/24 15:19 Urine Protein (Auto) 15 mg/dL 07/14/24 15:19 Glucose (UA)(Auto) 0 mg/dL 07/14/24 15:19 Urine Ketones (Auto) Negative 07/14/24 15:19 Urine Blood (Auto) 0 Jose/uL 07/14/24 15:19 Urine Nitrite (Auto) Negative 07/14/24 15:19 Urine Bilirubin (Auto) 0 mg/dL 07/14/24 15:19 Urine Urobilinogen (Auto) 3.5 mg/dL 07/14/24 15:19 Leukocyte Esterase (Auto) 0 Guerrero/uL 07/14/24 15:19 Assessment & Plan Assessment & Plan (1) BPH loc w urin obs/LUTS: Code(s): N40.1 - Benign prostatic hyperplasia with lower urinary tract symptoms Category: Medical (2) Weak urinary stream: Code(s): R39.12 - Poor urinary stream Category: Medical Plan Continue with medications Plan GreenLight laser We discussed the nature of the decision and reasonable options for performing a prostate intervention. Interventions include TURP, GreenLight laser enucleation of the prostate, GreenLight laser ablation of the prostate, transurethral incision of the prostate, and I-Tend prostate procedure. Options such as medical therapy were discussed. The relative uncertainties and benefits related to each alternate procedure were adequately discussed. General surgical risks including, but not limited to, pain, bleeding, infection, myocardial infarction, pulmonary embolus, deep vein thrombosis and cerebrovascular accident which may result in further hospitalization were discussed. Full disclosure of the procedure as well as all major risks, benefits and complications were discussed including but not limited to damage to the urethra or bladder neck, recurrent BPH, retrograde ejaculation, bladder infection, urge, de steven frequency, incomplete emptying, dysuria, remote chance of erectile dysfunction, epididymitis, and meatal stenosis. The success rate of the procedure was discussed. Success of the procedure in the short-term does not necessarily guarantee that long-term success will be maintained. Suitable follow up will need to be maintained. The patient showed understanding of discussion. An opportunity was provided for questions to be answered and wishes to proceed with the following procedure. - Greenlight laser Orders: Orders AMB Urinalysis Automated Today Z13.9 - Encounter for screening, unspecified AMB Cystoscopy Today C61 - Malignant neoplasm of prostate, N20.0 - Calculus of kidney, N39.0 - Urinary tract infection, site not specified, N40.1 - Benign pro static hyperplasia with lower urinary tract symptoms Patient Instructions: This note is constructed using voice recognition software. While every effort has been made to ensure accuracy used car make ready worker errors may have been included. Imaging studies, laboratory and physical exam results were discussed and reviewed in detail. No major barriers to patient understanding were identified. An opportunity to ask questions regarding the treatment plan was provided. All questions were answered. The patient expressed understanding and agreement with the above treatment plan. The patient is aware they should contact our office by phone for worsening of their current condition or the appearance of new urologic symptoms. Compliance is encouraged with any medications and followup testing that is ordered. It is a privilege to participate in the urologic care of your patient. If you have any questions or concerns regarding treatment for the above conditions, or other urologic issues, please do not hesitate to contact me. The office telephone contact is [phone]. Sincerely, Dr Zaheer Ramsey MD, [facility] - Urology Compassionate Specialist Care for the Genitourinary System Coding Level of Care Code Est Pt Level 4 (75571) Complex EM visit Add On G2211 Diagnoses BPH loc w urin obs/LUTS N40.1 Weak urinary stream R39.12 CPT Codes Cystoscopy - CPT: [id number] ([id number])
--- OUTSIDE RECORDS SUMMARY | 2024-07-14 15:47 | XMS_ITS | Patient Health Record ---
Author Organization [facility] Address [address] [place] [address] Care Team Providers Care Press Setter Name Role Phone Vaughn Cifuentes MD Primary Care Provider Trisha Vallecillo Unavailable [phone] Reason For Referral No Information Medications Medication SIG (Take, Route, Frequency, Duration) Notes Start Date End Date Status Finasteride Active Phenytoin 100 mg Orally Three times a day Active Complex B-100 Active Folic Acid Active vitamin Active Lisinopril & Diet Manage Prod Active Problems Problem Type SNOMED Code ICD Code Onset Dates Problem Status W/U Status Risk Notes Problem Neurofibromatos is, 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, 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 ([id number] 102) Congenital pes planus, right foot (Q66.51) Active confirmed Problem Congenital pes planus of left foot ([id number] 103) Congenital pes planus, left foot (Q66.52) Active confirmed Plan Of Treatment No Information Insurance Providers Payer Name Payer Address Payer Phone Subscriber Number Group Number Insured Name Patient Relationship to Insured Coverage Start Date Coverage End Date Medicare National [employer] [address] [place] [id number] Nayan Aly Self - patient is the insured do not use [address] [address] [phone] [id number] Nayan Aly Self - patient is the insured Medical (General) History Medical History History ICD Code Neurofibromatosis 1 mumps measles chicken pox hypertension epilepsy Back,Hip,and Knee pain Seizures Surgical History Surgery Date(Month/Year) ankle surgery 2002 leg surgery 2002 fibroid removal 2010
--- OUTSIDE RECORDS SUMMARY | 2024-07-14 15:47 | XMS_ITS | Encounter Summary ---
Author Organization [facility] Address [address] [place] [address] Care Team Providers Care Chute Feeder Name Role Phone Julito Spaulding MD Primary Care Provider [phone] Encounter Details Date Type Department Care Team (Late st Contact Info) Description 04/14/2024 Lab Requisition [facility] - Main Lab [address] [facility] [place] [address] Julito Spaulding MD [address] [place], [place] [id number] Weakness; Anemia, unspecified Social History Tobacco Use Types Packs/Day Years Used Date Smoking Tobacco: Never Assessed Sex and Gender Information Value Date Recorded Sex Assigned at Not on file Legal Sex Male 4:12 PM EST Gender Identity Not on file Sexual Orientation Not on file documented as of this encounter Plan of Treatment Not on file documented as of this encounter Visit Diagnoses Diagnosis Weakness Other malaise and fatigue Anemia, unspecified documented in this encounter Care Teams Chute Feeder Relationship Specialty Start Date End Date Julito Spaulding MD [address] [place] [id number] PCP - General Internal Medicine 04/06/24 documented as of this encounter
--- OUTSIDE RECORDS SUMMARY | 2024-07-14 15:47 | XMS_ITS | Encounter Summary ---
Author Organization [facility] Address [address] [place] [address] Care Team Providers Care Turning Machine Operator Helper Name Role Phone Julito Spaulding MD Primary Care Provider +1- [phone] Encounter Details Date Type Department Care Team (Late st Contact Info) Description 04/06/2024 Lab Requisition [facility] - Main Lab [address] [place] [address] Julito Spaulding MD [address] [place] [address] Weakness; Anemia, unspecified Social History Tobacco Use [...] phlebotomy fee (04/07/2024 8:35 AM EST) [facility] TRAVEL PHLEBOTOMY FEE Completed 04/07/2024 12:01 PM EST [facility] Blood Venous blood specimen / Unknown Venipuncture / Unknown 04/07/2024 8:35 AM EST 04/07/2024 11:54 AM EST Julito Spaulding MD LAB BLOOD ORDERABLES Final Result [facility] [address] [place] [address], * (ABNORMAL) CBC auto differential (04/07/2024 8:35 AM EST) WBC 7.9 4.8 - 10.8 K/mcL LAB HEMETOLOGY METHOD 04/07/2024 12:32 PM [facility] RBC 3.90(L) 4.50 - 5.50 M/mcL LAB HEMETOLOGY METHOD 04/07/2024 12:32 PM [facility] Hemoglobin 12.1(L) 13.5 - 17.5 g/dL LAB HEMETOLOGY METHOD 04/07/2024 12:32 PM [facility] Hematocrit 36.4(L) 42.0 - 54.0 % LAB HEMETOLOGY METHOD 04/07/2024 12:32 PM [facility] MCV 93.1 79.0 - 98.0 FL LAB HEMETOLOGY METHOD 04/07/2024 12:32 PM [facility] MCH 30.9 27.0 - 32.0 pcg LAB HEMETOLOGY METHOD 04/07/2024 12:32 PM [facility] MCHC 33.2 32.0 - 37.0 g/dL LAB HEMETOLOGY METHOD 04/07/2024 12:32 PM [facility] RDW 12.5 11.0 - 15.0 % LAB HEMETOLOGY METHOD 04/07/2024 12:32 PM [facility] Platelets 330 130 - 400 K/mcL LAB HEMETOLOGY METHOD 04/07/2024 12:32 PM [facility] MPV 9.9 7.0 - 11.0 FL LAB HEMETOLOGY METHOD 04/07/2024 12:32 PM [facility] NRBC 0.0 <1.0 % LAB HEMETOLOGY METHOD 04/07/2024 12:32 PM [facility] NRBC Absolute 0.00 <0.10 K/mcL LAB HEMETOLOGY METHOD 04/07/2024 12:32 PM [facility] Neutrophils Relative 69.7 % LAB HEMETOLOGY METHOD 04/07/2024 12:32 PM [facility] Lymphocytes Relative 21.5 % LAB HEMETOLOGY METHOD 04/07/2024 12:32 PM [facility] Monocytes Relative 6.0 % LAB HEMETOLOGY METHOD 04/07/2024 12:32 PM [facility] Eosinophils Relative 1.8 % LAB HEMETOLOGY METHOD 04/07/2024 12:32 PM [facility] Basophils Relative 0.5 % LAB HEMETOLOGY METHOD 04/07/2024 12:32 PM [facility] Immature Granulocytes Relative 0.5 % LAB HEMETOLOGY METHOD 04/07/2024 12:32 PM [facility] Neutrophils Absolute 5.49 1.50 - 7.00 K/mcL LAB HEMETOLOGY METHOD 04/07/2024 12:32 PM [facility] Lymphocytes Absolute 1.69 1.00 - 5.00 K/mcL LAB HEMETOLOGY METHOD 04/07/2024 12:32 PM [facility] Monocytes Absolute 0.47 0.20 - 1.00 K/mcL LAB HEMETOLOGY METHOD 04/07/2024 12:32 PM [facility] Eosinophils Absolute 0.14 0.00 - 0.50 K/mcL LAB HEMETOLOGY METHOD 04/07/2024 12:32 PM EST [facility] Basophils Absolute 0.04 0.00 - 0.20 K/mcL LAB HEMETOLOGY METHOD 04/07/2024 12:32 PM EST [facility] Immature Granulocytes Absolute 0.04(H) 0.00 - 0.03 K/mcL LAB HEMETOLOGY METHOD 04/07/2024 12:32 PM [facility] Blood Venous blood specimen / Unknown Venipuncture / Unknown 04/07/2024 8:35 AM EST 04/07/2024 11:54 AM EST Julito Spaulding MD LAB BLOOD ORDERABLES Final Result [facility] [address] [place] [address], * Comprehensive metabolic panel (04/07/2024 8:35 AM EST) Sodium 139 133 - 145 mmol/L LAB CHEMISTRY METHOD 04/07/2024 2:50 PM [facility] Potassium 4.6 3.5 - 5.5 mmol/L LAB CHEMISTRY METHOD 04/07/2024 2:50 PM [facility] Chloride 108 96 - 110 mmol/L LAB CHEMISTRY METHOD 04/07/2024 2:50 PM [facility] CO2 26 21 - 32 mmol/L LAB CHEMISTRY METHOD 04/07/2024 2:50 PM [facility] Anion Gap 5 3 - 11 LAB CHEMISTRY METHOD 04/07/2024 2:50 PM [facility] Glucose 74 70 - 100 mg/dL LAB CHEMISTRY METHOD 04/07/2024 2:50 PM [facility] BUN 20 5 - 25 mg/dL LAB CHEMISTRY METHOD 04/07/2024 2:50 PM [facility] Creatinine 0.86 0.70 - 1.30 mg/dL LAB CHEMISTRY METHOD 04/07/2024 2:50 PM [facility] eGFR 94 >=60 mL/min/1. 73m2 LAB CHEMISTRY METHOD 04/07/2024 2:50 PM [facility] Comment:Calculation based on the??Chronic Kidney Disease Epidemiology Collaboration (CKD-EPI) equation refit??without adjustment for race. BUN/Creatinine Ratio 23.3 LAB CHEMISTRY METHOD 04/07/2024 2:50 PM [facility] Calcium 9.4 8.5 - 10.5 mg/dL LAB CHEMISTRY METHOD 04/07/2024 2:50 PM [facility] AST (SGOT) 18 10 - 42 unit/L LAB CHEMISTRY METHOD 04/07/2024 2:50 PM [facility] ALT (SGPT) 33 10 - 60 unit/L LAB CHEMISTRY METHOD 04/07/2024 2:50 PM [facility] Alkaline Phosphatase 118 42 - 121 unit/L LAB CHEMISTRY METHOD 04/07/2024 2:50 PM [facility] Total Protein 6.8 6.0 - 8.0 g/dL LAB CHEMISTRY METHOD 04/07/2024 2:50 PM [facility] Albumin 3.6 3.2 - 5.0 g/dL LAB CHEMISTRY METHOD 04/07/2024 2:50 PM [facility] Total Bilirubin 0.2 0.0 - 1.4 mg/dL LAB CHEMISTRY METHOD 04/07/2024 2:50 PM [facility] Blood Venous blood specimen / Unknown Venipuncture / Unknown 04/07/2024 8:35 AM EST 04/07/2024 11:54 AM EST Julito Spaulding MD LAB BLOOD ORDERABLES Final Result [facility] [address] [place] [address], documented in this encounter Visit Diagnoses Diagnosis Weakness Other malaise and fatigue Anemia, unspecified documented in this encounter Care Teams Turning Machine Operator Helper Relationship Specialty Start Date End Date Julito Spaulding MD [address] [place] [address] PCP - General Internal Medicine 04/06/24 documented as of this encounter
--- OUTSIDE RECORDS SUMMARY | 2024-07-14 15:47 | XMS_ITS | Clinical Summary ---
Author Organization [facility] Address [address] [place] [address] Phone Care Team Providers Care Nurse Clinician Name Role Phone Julito Spaulding MD Primary Care Provider +1- [phone] Encounters Date Type Department Care Team Description 04/14/2024 Lab Requisition [facility] - Main Lab [address] [place] [address] Julito Spaulding MD Weakness; Anemia, [...] Vaccines (1 of 2) 2004 Pneumococcal Vaccine: 50+ Ye ars (1 of 1 - PCV) [...] on patient's age to complete this topic Insurance [employer] MED[employer]ARE ADVANTAGE Care Teams Nurse Clinician Relationship Specialty Start Date End Date Julito Spaulding MD [address] [place] [address] PCP - General Internal Medicine 04/06/24
== END 2024-07-14 15:50 | disposition home or self-care (01) ==
PROVIDERS: PCP Nurse Practitioner Family; Visit Provider Urology
DX: N40.1 Benign prostatic hyperplasia with lower urinary tract symptoms (principal); R39.12 Poor urinary stream; N39.0 Urinary tract infection, site not specified; N20.0 Calculus of kidney; Z13.9 Encounter for screening, unspecified
CPT/HCPCS: 52000; 99214; G2211

== ENCOUNTER → 2024-07-14 14:55 | Outpatient (BNVA) | payer MEDICARE, SELFPAY | PROVIDERS: PCP Nurse Practitioner Family; Visit Provider Urology | DX: N40.1 Benign prostatic hyperplasia with lower urinary tract symptoms (principal); R39.12 Poor urinary stream | CPT/HCPCS: 52000; 81003; 99212 ==

== ENCOUNTER 2024-09-28 08:52 | Outpatient (RCR) | payer MEDICARE, SELFPAY ==
--- NOTE | 2024-09-28 10:09 | MHC.PT.EP ---
[facility] [address] [place] Office [address] Khadijah Hopson [address] [phone] F: [phone] F: [phone] F: [phone] F: [phone] Physical Therapy Plan of Care Date of Evaluation: 09/28/24 Date of Surgery: Diagnosis: This is a 69 male presenting to skilled PT with a script for other abnormalities of gait and mobility. Assessment: This is a 69 male presenting to skilled PT with a script for other abnormalities of gait and mobility. Patient reporting ongoing leg weakness, balance and back pain since about April 2024 (back pain for much longer) when he went to the hospital for a UTI. He was in the hospital for over a week and then went to rehab and had home PT (which ended on 08/11). He does his HEP about 3x/week (ankle pumps, marching, hip abduction). He has had a few falls during this time and since then. He reports that sitting is fine but anything in standing is difficult. He uses icy hot on his back and legs. Back pain is located central and constant, achy. His legs also have pain and this varies but strength is the main limiting factor. Of note, he has a prostrate operation happening on October 12 (day surgery). Also of note, he reports epilepsy with the last seizure happening in 2002. Assessment reveals pain that ranges from up to a /10 at the worst. Patient demos decreased B LE ROM, strength of B LE's, core and back, decreased balance and gait as evidenced by balance tests and impaired posture with forward head, forward trunk and rounded shoulders. Of note, he lives a very sedentary lifestyle and has poor endurance. Based on functional limitations, impaired QOL and pain tolerance patient is a good candidate for skilled PT 2x/wk for 4wks. Frequency and Duration: The patient will be seen 2x/wk for 4wks Short Term Goals: Pt will demonstrate improved postural awareness and understanding of core engagement with supine and standing tasks without cues throughout session to improve balance safety as well as improve strength in 2 weeks. Pt will continue to reinforce precautions, sitting, standing and ADL modifications with proper body mechanics and prevent falls in 2 wks. Retirement Goals: Pt will demonstrate improved outcome measure by 5 points in 4 weeks for improved functional mobility. Pt will demonstrate ability to bend and lift WNL min to no pain for household tasks in 4 wks. Pt will be I in HEP and compliant in 4wks Pt will report no falls and/or LOB in 4 wks Treatment Plan: Modalities to reduce pain, spasms and effusion. Manual therapy to restore motion and function. Therapeutic exercise to improve strength and flexibility. Neuromuscular re-education for posture and balance. Therapeutic activities to return to functional activities of daily living. Electronically signed by: Yamileth Park, PT Please sign and return to therapist. Thank you for your referral.
--- NOTE | 2024-10-27 12:42 | MHC.PT.DC ---
[facility] [place] [facility] [place] [facility] [place] Office [address] Khadijah Hopson [address] [phone] F: [phone] F: [phone] F: [phone] F: [phone] Physical Therapy Discharge Report Diagnosis: This is a 69 male presenting to skilled PT with a script for other abnormalities of gait and mobility. Date of Surgery: Date of Evaluation: 09/28/24 Date of Discharge: 10/27/24 Treatments to Date: 1 Cancellations to Date: 0 No Shows to Date: 2 Discharge Status: Patient Elected to Stop Visit Non-compliance Discharge Summary: This is a 69 male presenting to skilled PT with a script for other abnormalities of gait and mobility. Patient reporting ongoing leg weakness, balance and back pain since about April 2024 (back pain for much longer) when he went to the hospital for a UTI. He was in the hospital for over a week and then went to rehab and had home PT (which ended on 08/11). He does his HEP about 3x/week (ankle pumps, marching, hip abduction). He has had a few falls during this time and since then. He reports that sitting is fine but anything in standing is difficult. He uses icy hot on his back and legs. Back pain is located central and constant, achy. His legs also have pain and this varies but strength is the main limiting factor. Of note, he has a prostrate operation happening on October 12 (day surgery). Also of note, he reports epilepsy with the last seizure happening in 2002. Assessment reveals pain that ranges from up to a 5/10 at the worst. Patient demos decreased B LE ROM, strength of B LE's, core and back, decreased balance and gait as evidenced by balance tests and impaired posture with forward head, forward trunk and rounded shoulders. Of note, he lives a very sedentary lifestyle and has poor endurance. Based on functional limitations, impaired QOL and pain tolerance patient is a good candidate for skilled PT 2x/wk for 4wks. Patient proceeded to no show to remaining appointments. Chart closed Electronically signed by: Yamileth Park PT Please sign and return to therapist. Thank you for your referral.
== END 2024-10-27 12:42 | disposition home or self-care (01) ==
LOC: HO.PTCHIC 08:52
PROVIDERS: PCP Nurse Practitioner Family; Visit Provider Nurse Practitioner Family
DX: R26.89 Other abnormalities of gait and mobility (principal); R29.898 Other symptoms and signs involving the musculoskeletal system
CPT/HCPCS: 97110; 97162

== ENCOUNTER 2024-10-12 07:51 | Day surgery (SDC) | payer MEDICARE, SELFPAY ==
--- OUTSIDE RECORDS SUMMARY | 2024-09-14 16:30 | XMS_ITS | Encounter Summary ---
Author Organization [facility] [employer] Address [address] [place] [address] Care Team Providers Care Space Sciences Director Name Role Phone Julito Spaulding MD Primary Care Provider +1- [phone] Encounter Details Date Type Department Care Team (Late st Contact Info) Description 04/06/2024 Lab Requisition [facility] - Main Lab [address] [place] [address] Julito Spaulding MD [address] [place] [address] Weakness; Anemia, unspecified Social History Tobacco Use [...] Travel phlebotomy fee (04/07/2024 8:35 AM EST) [facility] TRAVEL PHLEBOTOMY FEE Completed 04/07/2024 12:01 PM EST [facility] Blood Venous blood specimen / Unknown Venipuncture / Unknown 04/07/2024 8:35 AM EST 04/07/2024 11:54 AM EST Julito Spaulding MD LAB BLOOD ORDERABLES Final Result [facility] [address] [place] [address], * (ABNORMAL) CBC auto differential (04/07/2024 8:35 AM EST) WBC 7.9 4.8 - 10.8 K/mcL LAB HEMETOLOGY METHOD 04/07/2024 12:[address] [facility] RBC 3.90(L) 4.50 - 5.50 M/mcL LAB HEMETOLOGY METHOD 04/07/2024 12:[address] [facility] Hemoglobin 12.1(L) 13.5 - 17.5 g/dL LAB HEMETOLOGY METHOD 04/07/2024 12:[address] [facility] Hematocrit 36.4(L) 42.0 - 54.0 % LAB HEMETOLOGY METHOD 04/07/2024 12:[address] [facility] MCV 93.1 79.0 - 98.0 FL LAB HEMETOLOGY METHOD 04/07/2024 12:[address] [facility] MCH 30.9 27.0 - 32.0 pcg LAB HEMETOLOGY METHOD 04/07/2024 12:[address] [facility] MCHC 33.2 32.0 - 37.0 g/dL LAB HEMETOLOGY METHOD 04/07/2024 12:[address] [facility] RDW 12.5 11.0 - 15.0 % LAB HEMETOLOGY METHOD 04/07/2024 12:[address] [facility] Platelets 330 130 - 400 K/mcL LAB HEMETOLOGY METHOD 04/07/2024 12:[address] [facility] MPV 9.9 7.0 - 11.0 FL LAB HEMETOLOGY METHOD 04/07/2024 12:[address] [facility] NRBC 0.0 <1.0 % LAB HEMETOLOGY METHOD 04/07/2024 12:[address] [facility] NRBC Absolute 0.00 <0.10 K/mcL LAB HEMETOLOGY METHOD 04/07/2024 12:[address] [facility] Neutrophils Relative 69.7 % LAB HEMETOLOGY METHOD 04/07/2024 12:[address] [facility] Lymphocytes Relative 21.5 % LAB HEMETOLOGY METHOD 04/07/2024 12:[address] [facility] Monocytes Relative 6.0 % LAB HEMETOLOGY METHOD 04/07/2024 12:[address] [facility] Eosinophils Relative 1.8 % LAB HEMETOLOGY METHOD 04/07/2024 12:[address] [facility] Basophils Relative 0.5 % LAB HEMETOLOGY METHOD 04/07/2024 12:[address] [facility] Immature Granulocytes Relative 0.5 % LAB HEMETOLOGY METHOD 04/07/2024 12:[address] [facility] Neutrophils Absolute 5.49 1.50 - 7.00 K/mcL LAB HEMETOLOGY METHOD 04/07/2024 12:[address] [facility] Lymphocytes Absolute 1.69 1.00 - 5.00 K/mcL LAB HEMETOLOGY METHOD 04/07/2024 12:[address] [facility] Monocytes Absolute 0.47 0.20 - 1.00 K/mcL LAB HEMETOLOGY METHOD 04/07/2024 12:[address] [facility] Eosinophils Absolute 0.14 0.00 - 0.50 K/mcL LAB HEMETOLOGY METHOD 04/07/2024 12:32 PM EST [facility] Basophils Absolute 0.04 0.00 - 0.20 K/mcL LAB HEMETOLOGY METHOD 04/07/2024 12:32 PM EST [facility] Immature Granulocytes Absolute 0.04(H) 0.00 - 0.03 K/mcL LAB HEMETOLOGY METHOD 04/07/2024 12:[address] [facility] Blood Venous blood specimen / Unknown Venipuncture / Unknown 04/07/2024 8:35 AM EST 04/07/2024 11:54 AM EST Julito Spaulding MD LAB BLOOD ORDERABLES Final Result [facility] [address] [place] [address], * Comprehensive metabolic panel (04/07/2024 8:35 AM EST) Sodium 139 133 - 145 mmol/L LAB CHEMISTRY METHOD 04/07/2024 2:[address] [facility] Potassium 4.6 3.5 - 5.5 mmol/L LAB CHEMISTRY METHOD 04/07/2024 2:[address] [facility] Chloride 108 96 - 110 mmol/L LAB CHEMISTRY METHOD 04/07/2024 2:[address] [facility] CO2 26 21 - 32 mmol/L LAB CHEMISTRY METHOD 04/07/2024 2:[address] [facility] Anion Gap 5 3 - 11 LAB CHEMISTRY METHOD 04/07/2024 2:[address] [facility] Glucose 74 70 - 100 mg/dL LAB CHEMISTRY METHOD 04/07/2024 2:[address] [facility] BUN 20 5 - 25 mg/dL LAB CHEMISTRY METHOD 04/07/2024 2:[address] [facility] Creatinine 0.86 0.70 - 1.30 mg/dL LAB CHEMISTRY METHOD 04/07/2024 2:[address] [facility] eGFR 94 >=60 mL/min/1. 73m2 LAB CHEMISTRY METHOD 04/07/2024 2:[address] [facility] Comment:Calculation based on the??Chronic Kidney Disease Epidemiology Collaboration (CKD-EPI) equation refit??without adjustment for race. BUN/Creatinine Ratio 23.3 LAB CHEMISTRY METHOD 04/07/2024 2:[address] [facility] Calcium 9.4 8.5 - 10.5 mg/dL LAB CHEMISTRY METHOD 04/07/2024 2:[address] [facility] AST (SGOT) 18 10 - 42 unit/L LAB CHEMISTRY METHOD 04/07/2024 2:[address] [facility] ALT (SGPT) 33 10 - 60 unit/L LAB CHEMISTRY METHOD 04/07/2024 2:[address] [facility] Alkaline Phosphatase 118 42 - 121 unit/L LAB CHEMISTRY METHOD 04/07/2024 2:[address] [facility] Total Protein 6.8 6.0 - 8.0 g/dL LAB CHEMISTRY METHOD 04/07/2024 2:[address] [facility] Albumin 3.6 3.2 - 5.0 g/dL LAB CHEMISTRY METHOD 04/07/2024 2:[address] [facility] Total Bilirubin 0.2 0.0 - 1.4 mg/dL LAB CHEMISTRY METHOD 04/07/2024 2:[address] [facility] Blood Venous blood specimen / Unknown Venipuncture / Unknown 04/07/2024 8:35 AM EST 04/07/2024 11:54 AM EST Julito Spaulding MD LAB BLOOD ORDERABLES Final Result [facility] [address] [place] [address], documented in this encounter Visit Diagnoses Diagnosis Weakness Other malaise and fatigue Anemia, unspecified documented in this encounter Care Teams Space Sciences Director Relationship Specialty Start Date End Date Julito Spaulding MD [address] [place] [address] PCP - General Internal Medicine 04/06/24 documented as of this encounter
--- OUTSIDE RECORDS SUMMARY | 2024-09-14 16:31 | XMS_ITS | Clinical Summary ---
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 Name Role Phone Julito Spaulding MD Primary Care Provider +1- [phone] Social History Tobacco Use Types Packs/Day Years Used Date Smoking Tobacco: Never Assessed Sex and Gender Information Value Date Recorded Sex Assigned at Not on file Legal Sex Male 4:12 PM EST Gender Identity Not on file Sexual Orientation Not on file Plan of Treatment Health Maintenance Due Date Last Done Comments DTaP,Tdap,and Td Vaccines (1 - Tdap) 1973 Pneumococcal Vaccine: 50+ Ye ars (1 of 1 - PCV) 2004 Zoster Vaccines (1 of 2) 2004 COVID-19 Vaccine ( - 2023-2 5 season) 2024 Abdominal Aortic Aneurysm (A AA) Screen 04/07/2024 Cholesterol Screening (Lipid Panel) 04/07/2024 Colorectal Cancer Screening: Colonoscopy 04/07/2024 Depression Screening 04/07/2024 Falls Risk Assessment 04/07/2024 Hepatitis C Screening 04/07/2024 Medicare Annual Wellness Visit 04/07/2024 Social Influencers of Health Screening 04/07/2024 Influenza Vaccine (Season Ended) 2025 RSV Immunization Adult Patie nts (1 - 1-dose 75+ series) 2029 HIB [...] patient's age to complete this topic Meningococcal B Vaccine Aged Out No l onger eligible based on patient's age to complete this topic RSV Immunization Patients Un gretchen 20 months Aged Out No longer eligible b ased on patient's age to complete this topic Varicella Vaccines Aged Out No longer eligible based on patient's age to complete this topic Insurance [employer] MEDICARE ADVANTAGE Care Teams Threading Machine Operator Relationship Specialty Start Date End Date Julito Spaulding MD [address] [place] [address] PCP - General Internal Medicine 04/06/24
--- OUTSIDE RECORDS SUMMARY | 2024-09-14 16:31 | XMS_ITS | Patient Health Record ---
Author Organization [facility] Address [address] [place] [address] Care Team Providers Care Stave Grader Name Role Phone Vaughn Cifuentes MD Primary Care Provider Trisha Vallecillo Unavailable [phone] Reason For Referral No Information Medications Medication SIG (Take, Route, Frequency, Duration) Notes Start Date End Date Status Finasteride Active Phenytoin 100 mg Orally Three times a day Active Complex B-100 Active Folic Acid Active vitamin Active Lisinopril & Diet Manage Prod Active Problems Problem Type SNOMED Code ICD Code Onset Dates Problem Status W/U Status Risk Notes Problem Neurofibromatos is, 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, 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 (90775914159635 102) Congenital pes planus, right foot (Q66.51) Active confirmed Problem Congenital pes planus of left foot (56342857252219 103) Congenital pes planus, left foot (Q66.52) Active confirmed Plan Of Treatment No Information Insurance Providers Payer Name Payer Address Payer Phone Subscriber Number Group Number Insured Name Patient Relationship to Insured Coverage Start Date Coverage End Date Medicare [employer] [address] [place] [id number] Nayan Aly Self - patient is the insured do not use [address] [address] [id number] Nayan Aly Self - patient is the insured Medical (General) History Medical History History ICD Code Neurofibromatosis 1 mumps measles chicken pox hypertension epilepsy Back,Hip,and Knee pain Seizures Surgical History Surgery Date(Month/Year) ankle surgery 2002 leg surgery 2002 fibroid removal 2010
--- OUTSIDE RECORDS SUMMARY | 2024-09-14 16:31 | XMS_ITS | Encounter Summary ---
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 Machines Name Role Phone Julito Spaulding MD Primary Care Provider +1- [phone] Encounter Details Date Type Department Care Team (Late st Contact Info) Description 04/14/2024 Lab Requisition [facility] - Main Lab [address] [facility] [place] [address] Julito Spaulding MD [address] [place], [place] [id number] Weakness; Anemia, unspecified Social History Tobacco Use [...] unspecified documented in this encounter Care Teams Set Up Mechanic Heading Machines Relationship Specialty Start Date End Date Julito Spaulding MD [address] [place] [address] PCP - General Internal Medicine 04/06/24 documented as of this encounter
[2024-10-08 11:46] VITALS: BMI 26.3
[2024-10-12] VITALS (8 sets, daily range): BP systolic 103–137; BP diastolic 61–71; PULSE 66–75; RESP 16; TEMP 36.2; O2SAT 96–100; BMI 26.4
[2024-10-12] MEDS: Lactated Ringers 1,000 ML 100 ML IVCONT (08:47)
--- NOTE | 2024-10-12 08:47 | HO.ANESPROP2 ---
Documented by User: Norma Venegas NP 10/09/24 10:08 HPI - Anesthesia Eval Consult details Narrative: 69yo M for Laser Ablation Prostate w/Green Light PMFSH Active Problems Active Problems: All Active Problems Weakness of both legs (Acute) Balance problem (Acute) Weak urinary stream (Acute) Elevated alkaline phosphatase level (Acute) Renal lesion (Acute) BPH loc w urin obs/LUTS (Acute) Right renal stone (Acute) Acute UTI (Acute) Fracture of nasal bone (Acute) Right ankle sprain (Acute) History of seizures (Acute) SOB (shortness of breath) (Acute) Epidermoid cyst of face (Acute) Anemia (Acute) Screening for colon cancer (Acute) Excessive cerumen in both ear canals (Acute) Skin lesions (Acute) Other congenital malformations of nails (Acute) Screening PSA (prostate specific antigen) (Acute) Physical exam (Acute) Prostate cancer (Acute) Seizure (Acute) HTN (hypertension) (Acute) Chronic radicular pain of lower back (Acute) Lumbar disc disease (Acute) Tuberous sclerosis (Acute) Low vitamin B12 level (Acute) Past Medical History Medical History (Updated 10/08/24 @ 11:47 by Makayla León RN) Renal calculi BPH (benign prostatic hyperplasia) Prostate cancer Chronic radicular pain of lower back Lumbar disc disease Low vitamin B12 level Seizure HTN (hypertension) Tuberous sclerosis Family History Family History (Updated 05/28/24 @ 14:57 by BARERTT Pza) Father Colon cancer Mother Stomach cancer Breast cancer Surgical History Surgical History (Updated 10/08/24 @ 11:47 by Makayla León RN) H/O colonoscopy Social History Social History Household Members: Family Housing: House Do you presently have visiting nurse or other home services: No Patient Tobacco Use Status: Former Tobacco user Years Smoked: quit 1987 e-Cigarette/Vaping Use: Never Used Second Hand Smoke Exposure: No Use of substances other than those prescribed or required for medical reasons: No Are you DNR?: No Advance Directives: No Advance Directives Information Provided: Yes Poor oral hygiene: No service: No Current occupational status: retired Cognitive needs: No Hearing needs: No Vision needs: No Meds Allergies Allergy/AdvReac Type Severity Reaction Status Date / Time No Known Allergies Allergy Verified 07/14/24 14:58 Home Medications ?Medication ?Instructions ?Recorded ?Confirmed ?Last Taken ?Type phenytoin sodium extended 100 mg 300 mg PO DAILY 05/09/21 10/08/24 10/12/24 History capsule folic acid 1 mg tablet 1 mg PO DAILY 05/02/22 05/28/24 03/24/24 History fqkfujtmsfoh-tbi-kszxt acid-vit 1 tab PO DAILY 07/02/22 05/28/24 03/24/24 History K-lycop 400 mcg-20 mcg-370 mcg tablet (One-A-Day Men's 50 Plus (with vitamin K)) Exam Height,Weight and Vital Signs: Height 5 ft 9 in Weight 80.739 kg Pertinent Lab Results Pertinent Lab Results: Laboratory Tests 06/16/24 13:55 WBC 9.7 Hgb 12.5 L Hct 36.7 L Plt Count 280 D Sodium 139 Potassium 4.3 Chloride 108 Carbon Dioxide 28 BUN 16 Creatinine 1.02 Narrative Narrative: EKG 03/2024 Vent. Rate : 088 BPM Atrial Rate : 088 BPM P-R Int : 172 ms QRS Dur : 098 ms QT Int : 346 ms P-R-T Axes : 040 066 046 degrees QTc Int : 418 ms Normal sinus rhythm Normal ECG No previous ECGs available Assessment and Plan Assessment Anesthesia Assessment: Chart Reviewed Documented by User: Roberta Manuel DO 10/12/24 08:48 [facility] Past Medical History Medical History (Updated 10/08/24 @ 11:47 by Makayla León RN) Renal calculi BPH (benign prostatic hyperplasia) Prostate cancer Chronic radicular pain of lower back Lumbar disc disease Low vitamin B12 level Seizure HTN (hypertension) Tuberous sclerosis Family History Family History (Updated 05/28/24 @ 14:57 by BARRETT Paz) Father Colon cancer Mother Stomach cancer Breast cancer Family history of problems with anesthesia: No Surgical History Surgical History (Updated 10/08/24 @ 11:47 by Makayla León RN) H/O colonoscopy History of Problems with Anesthesia: No Social History Social History Household Members: Family Housing: House Do you presently have visiting nurse or other home services: No Patient Tobacco Use Status: Former Tobacco user Years Smoked: quit 1987 e-Cigarette/Vaping Use: Never Used Second Hand Smoke Exposure: No Use of substances other than those prescribed or required for medical reasons: No Are you DNR?: No Advance Directives: No Advance Directives Information Provided: Yes Poor oral hygiene: No service: No Current occupational status: retired Cognitive needs: No Hearing needs: No Vision needs: No Meds Allergies Allergy/AdvReac Type Severity Reaction Status Date / Time No Known Allergies Allergy Verified 07/14/24 14:58 Home Medications ?Medication ?Instructions ?Recorded ?Confirmed ?Last Taken ?Type phenytoin sodium extended 100 mg 300 mg PO DAILY 05/09/21 10/08/24 10/12/24 History capsule folic acid 1 mg tablet 1 mg PO DAILY 05/02/22 05/28/24 03/24/24 History vgdlhupquamq-dmr-kzcvx acid-vit 1 tab PO DAILY 07/02/22 05/28/24 03/24/24 History K-lycop 400 mcg-20 mcg-370 mcg tablet (One-A-Day Men's 50 Plus (with vitamin K)) Exam Exam Date and Time: 10/12/24 0845 Height,Weight and Vital Signs: Height 5 ft 9 in Weight 80.739 kg Vital Signs Temperature 97.1 F 10/12/24 08:37 Pulse Rate 10/12/24 08:37 Respiratory Rate 16 10/12/24 08:37 Blood Pressure 137/71 10/12/24 08:37 Pulse Oximetry 97 10/12/24 08:37 Oxygen Delivery Method Room Air 10/12/24 08:37 Temperature 97.1 F 10/12/24 08:37 Pulse Rate 69 10/12/24 08:37 Respiratory Rate 16 10/12/24 08:37 Blood Pressure 137/71 10/12/24 08:37 Pulse Oximetry 97 10/12/24 08:37 Oxygen Delivery Method Room Air 10/12/24 08:37 Airway Mallampati Class: III TM Dist: >3cm Neck ROM: Limited Denture: Upper Heart: S1S2 Lungs: CTAB Assessment and Plan Assessment Anesthesia Assessment: Anesthesia Plan Discussed and Chart Reviewed Final Anesthetic Review Family History of Problems with Anesthesia: No History of Problems with Anesthesia: No NPO: Yes ASA Class: III Final Preanesthetic Review: No Changes in Pt Med Stat, Meds/Allgs Chart Reviewed, Consent Obtained/Reviewed and Anes Risks/Benef Reviewed Patient Risk: Low Procedure Risk: Low Anesthetic Plan Anesthetic Plan: GA and Agree w/ Assess. and Plan Disposition: Standard PACU
--- NOTE | 2024-10-12 08:48 | MHC.SHP ---
Pre-Procedural Eval Section A - 24 Hr Update-Section A only Date of Service: 10/12/24 The patient is an INPATIENT: No Changes since office visit: No Cold of Flu in the past 2 weeks, No New Medical Problems, No Changes in Medication and No Patient answered all questions The patient has been examined within 24 hours of the surgical procedure. The History & Physical has been completed within 30 days and I have reviewed it.: Yes Section B - Complete if H&P > 30 days Chief Complaint: LUTS Details of Present Illness: MRI median lobe 100 mg Relevant Family History (Specify if Yes): No Relevant Social History: None Present Medications: see Short Stay Collaborative assessment Medical History: Significant History History of Previous Operations: No relevant previous surgery Allergies: Allergies Allergy/AdvReac Type Severity Reaction Status Date / Time No Known Allergies Allergy Verified 07/14/24 14:58 Review of Systems Sugical H&P ROS: Negative: Constitution, Cardiovascular, Respiratory, Neurological, Psychiatric, Hem-Onc, Allergic/Immunologic, Gastrointestinal, Genitourinary, Musculoskeletal, Integumentary, Endocrine and Eyes/Ears/Nose/Throat Exam Surgical H&P Exam: Normal: HEENT, Normal: Heart, Normal: Lungs, Normal: Extremities, Normal: Abdomen, Normal: Skin and Normal: Neurological Plan Diagnosis/Plan: Unchanged (large median lobe with urinary retention) I have reviewed the history and physical and performed a pertinent physical examination on my patient. No changes have occurred unless specified. Time Spent With Patient Time: Total time managing care of this patient today ____ minutes.
[2024-10-12] MEDS: levoFLOXacin/D5W 500 MG/100 ML PIGGYBACK 100 MG IV (09:04)
--- NOTE | 2024-10-12 10:11 | W.PM.OPN ---
Operative Note Operative Note Date of Service: 10/12/24 Narrative: PreOperative Diagnosis: Bladder outlet obstruction Post Operative Diagnosis: Bladder outlet obstruction Procedure: GreenLight Laser Enucleation of the prostate CPT 07954 Surgeon: Dr Zaheer Ramsey Anesthesia: General History of bladder outlet obstruction. Treated with alpha-thi and other medications. Still with symptoms. On cystoscopy in office has trilobar prostate. Recommendation for prostate procedure with laser enucleation of prostate. Risks and benefits have been discussed. Focus was placed on development of retrograde ejaculation which is a normal part of this procedure. Procedure: After informed consent was verified the patient was brought to the operating room and placed in a supine position. Anesthesia was administered per protocol. Patient was placed in modified dorsal lithotomy position and prepped and draped in a sterile fashion. Safety pause time-out was confirmed. Antibiotics have been given. A Twenty-four [place] laser cystoscope was inserted per urethra. No abnormalities were found of the anterior and bulbar urethra. The prostatic urethra shows trilobar hypertrophy. The bladder was examined and both ureteric orifices were seen in their normal positions away from the area of interest. Bladder trabeculation Grade 3. The bladder also had an appearance of chronic cystitis with multiple cellules. Using a GreenLight laser with initial settings of 80 amaro incisions were made at the 5 and 7 o'clock position. The incisions were taken down from the bladder neck down to the area just proximal of the veru. These were gradually deepened in order to define the lateral aspects of the median lobe area. The deep boundary of enucleation was defined by the prostate surgical capsule. Once clearly defined the grooves were extended in the lateral directions in order to create a deep groove. The median lobe was then ablated and enucleated tissue released into the bladder with the laser power increased to 120 W. moderate-sized median lobe. Once the median lobe area had been cleared, attention was directed to the lateral lobes. Starting with the patient's left lateral lobe. First the 05:00 o'clock groove was further developed. This was moved in the lateral direction to undermine the tissue on the lateral side running from the bladder neck to the prostate apex. The ureteric orifice was used to guide incisions. The laser fiber was placed at the 1 o'clock position and a secondary groove was developed down to the level of prostatic capsule. The creation of a second deep groove defined a segment of intervening tissue similar to a slice of orange. At the apex of the prostate the laser was used to vertically link the two grooves releasing the intervening tissue and creating a segment of tissue. This tissue was then removed with a combination of enucleation and ablation working from the apex toward the bladder neck. A similar procedure was repeated on the patient's right-hand side. The only differences being the position of the lateral groove at he 7 o'clock position and the secondary groove at the 11 o'clock position, Otherwise the procedure was developed in a mirror fashion. 140 amaro. After the majority of tissue had been debulked remnant tissue was ablated with the side fire laser and the curve of the prostate followed up each side wall clearly defining the anterior remnant strip that remained between the 11 and 1 o'clock positions. In this case the anterior tissue protruded into the prostatic fossa and was partially ablated with the laser At completion debris and pieces of prostate were removed from the bladder with irrigation. Both ureteric orifices were reviewed again in shown to be patent in away from any areas of energy damage. The apical area was reviewed and any stray mucosal ooze was controlled. A 22 [place] 30 cc balloon Garza catheter was placed into the bladder using a flexible stylet. Clear efflux was obtained upon irrigation with a Meg piston syringe. 45 cc was placed in the balloon and gentle traction was placed. A snap was used to hold tension on the catheter to control bleeding during patient moved and transported. A drainage bag was placed. Once transportation is complete to the PACU the snap will be removed. The patient tolerated the procedure well, he was extubated in the operating and transferred in a stable condition to the recovery area. Total Power 158 kW Lasing time 22:42 Pathology: Prostate tissue Drains: Garza catheter
[2024-10-12] MEDS: Haloperidol Lactate 5 MG/ML VIAL IVPUSH (10:35)
== END 2024-10-12 12:26 | disposition home or self-care (01) ==
PROVIDERS: PCP Nurse Practitioner Family; Visit Provider Urology
PROC: (CPT 52648; principal; 2024-10-12 09:30)
DX: N40.1 Benign prostatic hyperplasia with lower urinary tract symptoms (principal); N13.8 Other obstructive and reflux uropathy; C61 Malignant neoplasm of prostate; R39.12 Poor urinary stream; R39.15 Urgency of urination; R35.0 Frequency of micturition; N28.1 Cyst of kidney, acquired; N20.0 Calculus of kidney; I10 Essential (primary) hypertension; E53.8 Deficiency of other specified B group vitamins; Q85.1 Tuberous sclerosis; R56.9 Unspecified convulsions; Z79.899 Other long term (current) drug therapy; Z87.891 Personal history of nicotine dependence
CPT/HCPCS: 52649; 88305; J1100; J1630; J1956; J2003; J2371; J2405; J2704; J3010

== ENCOUNTER → 2024-10-12 07:51 | Outpatient (BNV) | payer MEDICARE, SELFPAY | PROVIDERS: PCP Nurse Practitioner Family; Visit Provider Urology | DX: N32.0 Bladder-neck obstruction (principal) | CPT/HCPCS: 52649 ==

== ENCOUNTER → 2024-10-14 09:28 | Outpatient (BNVA) | payer MEDICARE, SELFPAY | PROVIDERS: PCP Nurse Practitioner Family; Visit Provider Urology | DX: N40.1 Benign prostatic hyperplasia with lower urinary tract symptoms (principal) | CPT/HCPCS: 51700; 51798 ==

== ENCOUNTER → 2024-10-15 13:57 | Outpatient (BNVA) | payer MEDICARE, SELFPAY | PROVIDERS: PCP Nurse Practitioner Family; Visit Provider Urology | DX: N40.1 Benign prostatic hyperplasia with lower urinary tract symptoms (principal); R39.12 Poor urinary stream | CPT/HCPCS: 51702; 51798 ==

== ENCOUNTER 2024-10-30 21:41 | Inpatient (IN) | payer MEDICARE, SELFPAY ==
--- NOTE | ~2024-10-30 | CT_ITS ---
CLINICAL HISTORY: pelvic pain, new onset hematuria, sp greenlight CT abdomen and pelvis without contrast Comparison: None Findings: Mild bibasilar atelectasis and scarring, right worse than left. No obstructing stone in either kidney or either ureter. Cystic structures of the exophytic lesions of the kidneys are not characterize without intravenous contrast. Mild adrenal hyperplasia. The spleen is nonenlarged. Mild volume loss of the pancreas. Gallbladder is unremarkable for CT. Nonspecific cystic appearing lesion in the right 2 cm. Small mesenteric and periaortic lymph nodes are nonspecific and likely reactive. No small bowel obstruction. The appendix is within normal limits (imaged 424 of series 4). Severe stool burden is present, including the cecum. Mild wall thickening of the large intestine is nonspecific. Moderate to severe thickening of the urinary bladder is concerning for cystitis. Urothelial lesion not excluded by CT. Prostate gland measures 5.8 cm transverse. Bulb of the catheter terminates about the lower margin of the imaged prostate. Tip of the catheter appears in the prostate. Trace right and small left fat containing inguinal hernias. Calcified and noncalcified plaque involving the imaged aorta and its branches. Multifocal sclerosis concerning for osseous metastatic disease appears diffuse. No resulting compression fracture of the imaged vertebrae. Mild-moderate osteoarthritis of the both hips. Additional degenerative changes include facet arthropathy of the lumbar spine and vacuum disc phenomenon at L5-S1. IMPRESSION: 1. Multifocal sclerosis concerning for diffuse osseous metastatic disease (blastic). 2. Inferior and/or low positioning of the imaged Garza type catheter. Please consider repositioning post balloon deflation, if clinically indicated and/or clinically able. 3. Wall thickening of the urinary bladder is nonspecific by CT. 4. Severe stool burden. No small bowel obstruction. 5. No obstructing stone in either kidney or either ureter. 6. Nonspecific cystic lesion in the right lobe of the liver. Please consider short-term follow-up to ensure stability. This document has been electronically signed by: Kenn Huizar MD on 10/31/2024 00:33:04
[2024-10-30 21:51] VITALS: BP 132/69; PULSE 80; RESP 18; TEMP 36.7; O2SAT 98; BMI 25.1
[2024-10-30 22:21] LABS: Basophils Percent Auto 0.2 % (0-2); Eosinophils Absolute Auto 0.2 X10*3/uL (0.0-0.4); Eosinophils Percent Auto 1.8 % (0-4); Hematocrit 31.7 % (42.0-52.0); Hemoglobin 11.2 g/dl (14.0-18.0); Imm Gran Abs Auto 0.08 X10*3/uL (0.00-0.03); Imm Gran Pct Auto 0.6 % (0.0-0.4); Lymphocytes Absolute Auto 2.1 X10*3/uL (1.2-4.9); Lymphocytes Percent Auto 16.1 % (20-40); MANUAL DIFF FLAG NO; Mean Corpuscular HGB Conc 35.3 g/dl (31.0-36.0); Mean Corpuscular Hemoglobin 31.3 pg (27.0-33.0); Mean Corpuscular Volume 88.5 fL (80.0-98.0); Mean Platelet Volume 8.7 fL (9.4-12.4); Monocytes Percent Auto 7.3 % (2-11); Neutrophils Absolute Auto 9.8 x10*3/uL (2.0-8.3); Platelet Count 381 X10*3/uL (160-400); Red Blood Count 3.58 X10*6/uL (4.60-5.80); Red Cell Distribution Width 12.1 % (11.0-16.0); White Blood Count 13.3 X10*3/uL (4.8-10.8)
[2024-10-30 22:34] LABS: Alanine Aminotransferase 22 U/L (0-40); Albumin Level 3.8 g/dL (3.5-5.0); Alkaline Phosphatase 133 U/L (39-117); Anion Gap 13 (12-20); Aspartate Amino Transferase 23 U/L (5-37); Bilirubin Total 0.2 mg/dL (0.0-1.0); Blood Urea Nitrogen 16 mg/dL (9-16); Calcium 9.1 mg/dL (8.4-10.2); Carbon Dioxide 24 mmol/L (22-29); Chloride 108 mmol/L (96-108); Creatinine Clr Calc Pharmacy 63.3; Estimated Glomerular Filt Rate > 60; Glucose Random 92 mg/dL (60-115); Potassium 3.7 mmol/L (3.3-5.1); Sodium 141 mmol/L (135-145); Total Protein 7.1 g/dL (6.5-8.0)
--- OUTSIDE RECORDS SUMMARY | 2024-10-30 22:37 | XMS_ITS | Encounter Summary ---
Author Organization [facility] [employer] Address [address] [place] [address] Care Team Providers Care Special Needs Tutor Name Role Phone Julito Spaulding MD Primary Care Provider [phone]- [phone] Encounter Details Date Type Department Care Team (Late st Contact Info) Description 04/06/2024 Lab Requisition [facility] - Main Lab [address] [place] [address] Julito Spaulding MD [address] [place] [address] Weakness; Anemia, unspecified Social History Tobacco Use [...] Travel phlebotomy fee (04/07/2024 8:35 AM EST) [facility] TRAVEL PHLEBOTOMY FEE Completed 04/07/2024 12:01 PM EST [facility] Blood Venous blood specimen / Unknown Venipuncture / Unknown 04/07/2024 8:35 AM EST 04/07/2024 11:54 AM EST Julito Spaulding MD LAB BLOOD ORDERABLES Final Result [facility] [address] [place] [address], * (ABNORMAL) CBC auto differential (04/07/2024 8:35 AM EST) WBC 7.9 4.8 - 10.8 K/mcL LAB HEMETOLOGY METHOD 04/07/2024 12:32 PM [facility] RBC 3.90(L) 4.50 - 5.50 M/mcL LAB HEMETOLOGY METHOD 04/07/2024 12:32 PM [facility] Hemoglobin 12.1(L) 13.5 - 17.5 g/dL LAB HEMETOLOGY METHOD 04/07/2024 12:32 PM [facility] Hematocrit 36.4(L) 42.0 - 54.0 % LAB HEMETOLOGY METHOD 04/07/2024 12:32 PM [facility] MCV 93.1 79.0 - 98.0 FL LAB HEMETOLOGY METHOD 04/07/2024 12:32 PM [facility] MCH 30.9 27.0 - 32.0 pcg LAB HEMETOLOGY METHOD 04/07/2024 12:32 PM [facility] MCHC 33.2 32.0 - 37.0 g/dL LAB HEMETOLOGY METHOD 04/07/2024 12:32 PM [facility] RDW 12.5 11.0 - 15.0 % LAB HEMETOLOGY METHOD 04/07/2024 12:32 PM [facility] Platelets 330 130 - 400 K/mcL LAB HEMETOLOGY METHOD 04/07/2024 12:32 PM [facility] MPV 9.9 7.0 - 11.0 FL LAB HEMETOLOGY METHOD 04/07/2024 12:32 PM [facility] NRBC 0.0 <1.0 % LAB HEMETOLOGY METHOD 04/07/2024 12:32 PM [facility] NRBC Absolute 0.00 <0.10 K/mcL LAB HEMETOLOGY METHOD 04/07/2024 12:32 PM [facility] Neutrophils Relative 69.7 % LAB HEMETOLOGY METHOD 04/07/2024 12:32 PM [facility] Lymphocytes Relative 21.5 % LAB HEMETOLOGY METHOD 04/07/2024 12:32 PM [facility] Monocytes Relative 6.0 % LAB HEMETOLOGY METHOD 04/07/2024 12:32 PM [facility] Eosinophils Relative 1.8 % LAB HEMETOLOGY METHOD 04/07/2024 12:32 PM [facility] Basophils Relative 0.5 % LAB HEMETOLOGY METHOD 04/07/2024 12:32 PM [facility] Immature Granulocytes Relative 0.5 % LAB HEMETOLOGY METHOD 04/07/2024 12:32 PM [facility] Neutrophils Absolute 5.49 1.50 - 7.00 K/mcL LAB HEMETOLOGY METHOD 04/07/2024 12:32 PM [facility] Lymphocytes Absolute 1.69 1.00 - 5.00 K/mcL LAB HEMETOLOGY METHOD 04/07/2024 12:32 PM [facility] Monocytes Absolute 0.47 0.20 - 1.00 K/mcL LAB HEMETOLOGY METHOD 04/07/2024 12:32 PM [facility] Eosinophils Absolute 0.14 0.00 - 0.50 K/mcL LAB HEMETOLOGY METHOD 04/07/2024 12:32 PM EST [facility] Basophils Absolute 0.04 0.00 - 0.20 K/mcL LAB HEMETOLOGY METHOD 04/07/2024 12:32 PM EST [facility] Immature Granulocytes Absolute 0.04(H) 0.00 - 0.03 K/mcL LAB HEMETOLOGY METHOD 04/07/2024 12:32 PM [facility] Blood Venous blood specimen / Unknown Venipuncture / Unknown 04/07/2024 8:35 AM EST 04/07/2024 11:54 AM EST Julito Spaulding MD LAB BLOOD ORDERABLES Final Result [facility] [address] [place] [address], * Comprehensive metabolic panel (04/07/2024 8:35 AM EST) Sodium 139 133 - 145 mmol/L LAB CHEMISTRY METHOD 04/07/2024 2:50 PM [facility] Potassium 4.6 3.5 - 5.5 mmol/L LAB CHEMISTRY METHOD 04/07/2024 2:50 PM [facility] Chloride 108 96 - 110 mmol/L LAB CHEMISTRY METHOD 04/07/2024 2:50 PM [facility] CO2 26 21 - 32 mmol/L LAB CHEMISTRY METHOD 04/07/2024 2:50 PM [facility] Anion Gap 5 3 - 11 LAB CHEMISTRY METHOD 04/07/2024 2:50 PM [facility] Glucose 74 70 - 100 mg/dL LAB CHEMISTRY METHOD 04/07/2024 2:50 PM [facility] BUN 20 5 - 25 mg/dL LAB CHEMISTRY METHOD 04/07/2024 2:50 PM [facility] Creatinine 0.86 0.70 - 1.30 mg/dL LAB CHEMISTRY METHOD 04/07/2024 2:50 PM [facility] eGFR 94 >=60 mL/min/1. 73m2 LAB CHEMISTRY METHOD 04/07/2024 2:50 PM [facility] Comment:Calculation based on the??Chronic Kidney Disease Epidemiology Collaboration (CKD-EPI) equation refit??without adjustment for race. BUN/Creatinine Ratio 23.3 LAB CHEMISTRY METHOD 04/07/2024 2:50 PM [facility] Calcium 9.4 8.5 - 10.5 mg/dL LAB CHEMISTRY METHOD 04/07/2024 2:50 PM [facility] AST (SGOT) 18 10 - 42 unit/L LAB CHEMISTRY METHOD 04/07/2024 2:50 PM [facility] ALT (SGPT) 33 10 - 60 unit/L LAB CHEMISTRY METHOD 04/07/2024 2:50 PM [facility] Alkaline Phosphatase 118 42 - 121 unit/L LAB CHEMISTRY METHOD 04/07/2024 2:50 PM [facility] Total Protein 6.8 6.0 - 8.0 g/dL LAB CHEMISTRY METHOD 04/07/2024 2:50 PM [facility] Albumin 3.6 3.2 - 5.0 g/dL LAB CHEMISTRY METHOD 04/07/2024 2:50 PM [facility] Total Bilirubin 0.2 0.0 - 1.4 mg/dL LAB CHEMISTRY METHOD 04/07/2024 2:50 PM [facility] Blood Venous blood specimen / Unknown Venipuncture / Unknown 04/07/2024 8:35 AM EST 04/07/2024 11:54 AM EST Julito pSaulding MD LAB BLOOD ORDERABLES Final Result [facility] [address] [place] [address], documented in this encounter Visit Diagnoses Diagnosis Weakness Other malaise and fatigue Anemia, unspecified documented in this encounter Care Teams Special Needs Tutor Relationship Specialty Start Date End Date Julito Spaulding MD [address] [place] [address] PCP - General Internal Medicine 04/06/24 documented as of this encounter
--- NOTE | 2024-10-30 22:45 | ED.MALEGU ---
HPI - Male Genitourinary General Chief complaint: Urogenital-Male Stated complaint: blood in colostomy bag Time Seen by Provider: 10/30/24 22:15 Source: patient, family and old records reviewed Mode of arrival: ambulatory Limitations: no limitations History of Present Illness ED Provider: EBEN DUQUE Narrative: 69 yo male with PMH of BPH and bladder outlet obstrucion, seizures, UTI, anemia, HTN who is s/p greenlight procedure on 10/[address] Ramsey he notes he has been doing well until less urine output around 5pm, increased pain and then he thinks he might have pulled the james catheter now there is suprapubic pain and penile pain with hematuria. The hematuria has stopped. He has no fevers, n/v/d. He is not on blood thinners 10/12/24 prostate pathology no prostate cancer MD Complaint: other (pelvic pain, hematuria, penile pain) Onset (ago): hour(s) (4) Duration: intermittent Location: penis and abdomen Severity: mild Quality: burning and sharp Relieving factors: none Exacerbating factors: movement Context: indwelling catheter Associated symptoms: Reports denies other symptoms Related Data Home Medications ?Medication ?Instructions ?Recorded ?Confirmed phenytoin sodium extended 100 mg 300 mg PO DAILY 05/09/21 10/08/24 capsule folic acid 1 mg tablet 1 mg PO DAILY 05/02/22 05/28/24 mcittcecdwox-yqs-ygvsi acid-vit 1 tab PO DAILY 07/02/22 05/28/24 K-lycop 400 mcg-20 mcg-370 mcg tablet (One-A-Day Men's 50 Plus (with vitamin K)) Previous Rx's ?Medication ?Instructions ?Recorded walker #1 ea 04/16/24 lisinopril 10 mg tablet 10 mg PO DAILY #90 tabs 05/09/24 finasteride 5 mg tablet 5 mg PO DAILY #90 tabs 07/02/24 tamsulosin 0.4 mg capsule 0.4 mg PO DAILY 90 days #90 caps 07/14/24 sulfamethoxazole 400 1 tab PO DAILY #10 tabs 10/12/24 mg-trimethoprim 80 mg tablet (Bactrim) tranexamic acid 650 mg tablet 650 mg PO DAILY 5 days #5 tabs 10/12/24 Allergies Allergy/AdvReac Type Severity Reaction Status Date / Time No Known Allergies Allergy Verified 10/30/24 21:53 Review of Systems Review of Systems: Constitutional : No Fever, No Chills, No Fatigue ENT/Mouth : No sore throat, No Rhinorrhea Eyes: No Eye Pain, No Swelling, No Redness Cardiovascular : No Chest Pain, No SOB, No Dyspnea on Exertion Respiratory : No Cough, No Sputum Gastrointestinal : No Nausea, No Vomiting, No Diarrhea, No abdominal Pain Genitourinary : No Dysuria, No Urinary Frequency, pos Hematuria, pos pelvic pain Musculoskeletal : No joint pain, No Myalgias, No Joint Swelling Skin : No Skin Lesions, No rash Neuro : No Weakness, No Numbness, No Dizziness, no Headache All other systems reviewed and are negative [facility] Past Medical History Attestation statement: The following information was validated with the patient. Source: old records reviewed Medical History Renal calculi BPH (benign prostatic hyperplasia) Prostate cancer Chronic radicular pain of lower back Lumbar disc disease Low vitamin B12 level Seizure HTN (hypertension) Tuberous sclerosis Surgical History H/O colonoscopy Family History Family History (Updated 05/28/24 @ 14:57 by BARRETT Paz) Father Colon cancer Mother Stomach cancer Breast cancer Social History Social History Household Members: Family Housing: House Do you presently have visiting nurse or other home services: No Patient Tobacco Use Status: Former Tobacco user Years Smoked: quit 1987 e-Cigarette/Vaping Use: Never Used Second Hand Smoke Exposure: No Advance Directives: No Advance Directives Information Provided: Yes Do you have a plan to hurt others: No Plan service: No Current occupational status: retired Cognitive needs: No Hearing needs: No Vision needs: No Physical Exam Vital Signs: Vital Signs: Last Vital Signs Temp 98.1 F 10/30/24 21:51 Pulse 80 10/30/24 21:51 Resp 18 10/30/24 21:51 BP 132/69 10/30/24 21:51 Pulse Ox 98 10/30/24 21:51 O2 Del Method Room Air 10/30/24 21:51 BMI result Body Mass Index 25.1 Appearance: Alert. Oriented X3. No acute distress. Eyes: Pupils equal, round and reactive to light. ENT: Pharynx normal. Neck: Normal inspection. Neck supple. CVS: Normal heart rate and rhythm. Pulses normal. Respiratory: No respiratory distress. Breath sounds normal. Abdomen: Soft and nontender. bag of james has about 200mL of bloody urine but in the catheter is yellow urine he has no bleeding at the meatus, otherwise normal Skin: Skin warm and dry. Normal skin color. Extremities: No lower extremity edema. Neuro: Oriented X 3. No motor deficit. No sensory deficit. CN2-12 intact Course Course Course Narrative: after CT scan RN to attempt to advance the james under sterile conditions again Reevaluation(s) Reevaluation #1: CT scan and UA concerning will start on IV cefepime based off his prior culture, infection suspected at 1247am Medical Decision Making Medical Decision Making [facility] Narrative: 69 yo male with PMH of BPH and bladder outlet obstrucion, tuberous sclerosis, seizures, UTI, anemia, HTN who reports pain at urethra hematuria and feeling like his catheter pulled. Will obtain bedside US, possible CT scan, basic labs and UA. He has no systemic symptoms. He admits he likely pulled the catheter. Hx of cardoso S E. coli and Klebsiella UTI in past Differential Diagnosis Differential Diagnoses: The differential diagnosis associated with the presentation includes post surgery hematuria, james issue Admission/Observation Consideration of admission/observation: Escalation of care including admission/observation considered admit for IV abx Consult Healthcare Provider Management of the patient was discussed with: Hospitalist (will admit) Lab Data [facility] Lab Attestation statement: I reviewed the patient's lab results. 10/30/24 22:15 10/30/24 22:15 Labs: Lab Results 10/30/24 10/30/24 Range/Units 22:15 23:03 WBC 13.3 H (4.8-10.8) X10*3/uL RBC 3.58 L (4.60-5.80) X10*6/uL Hgb 11.2 L (14.0-18.0) g/dl Hct 31.7 L (42.0-52.0) % MCV 88.5 (80.0-98.0) fL MCH 31.3 (27.0-33.0) pg MCHC 35.3 (31.0-36.0) g/dl RDW 12.1 (11.0-16.0) % Plt Count 381 D (160-400) X10*3/uL MPV 8.7 L (9.4-12.4) fL Immature Gran % (Auto) 0.6 H (0.0-0.4) % Neut % (Auto) 74.0 H (45-73) % Lymph % (Auto) 16.1 L (20-40) % [place] % (Auto) 7.3 (2-11) % Eos % (Auto) 1.8 (0-4) % Baso % (Auto) 0.2 (0-2) % Lymph # (Auto) 2.1 (1.2-4.9) X10*3/uL [place] # (Auto) 1.0 (0.1-1.2) X10*3/uL Eos # (Auto) 0.2 (0.0-0.4) X10*3/uL Baso # (Auto) 0.0 (0.0-0.2) X10*3/uL Abs Immat Gran (auto) 0.08 H (0.00-0.03) X10*3/uL Absolute Neuts (auto) 9.8 H (2.0-8.3) x10*3/uL Absolute Nucleated RBC 0.000 (0.0-0.012) X10*3/uL Nucleated RBC % (auto) 0.0 (0.0-0.2) /100WBC Sodium 141 (135-145) mmol/L Potassium 3.7 (3.3-5.1) mmol/L Chloride 108 (96-108) mmol/L Carbon Dioxide 24 (22-29) mmol/L Anion Gap 13 (12-20) BUN 16 (9-16) mg/dL Creatinine 1.12 (0.5-1.4) mg/dL Estim Creat Clear Calc 63.3 Estimated GFR > 60 Random Glucose 92 (60-115) mg/dL Calcium 9.1 D (8.4-10.2) mg/dL Total Bilirubin 0.2 (0.0-1.0) mg/dL AST 23 (5-37) U/L ALT 22 (0-40) U/L Alkaline Phosphatase 133 H (39-117) U/L Total Protein 7.1 (6.5-8.0) g/dL Albumin 3.8 (3.5-5.0) g/dL Urine Color Yellow Urine Appearance Turbid Urine pH 5.5 (5.0-9.0) Ur Specific [place] 1.020 (1.005-1.025) Urine Protein 300 (3+) H (Neg-Trace) mg/dL Urine Glucose (UA) Negative (Negative) mg/dL Urine Ketones Trace (Negative) mg/dL Urine Blood Large (3+) H (Negative) Urine Nitrite Negative (Negative) Ur Leukocyte Esterase Large (3+) H (Negative) Urine RBC >20 H (0-2) /HPF Urine WBC >50 H (0-5) /HPF Urine WBC Clumps Present Ur Squamous Epith Cells 0-2 (0-2) /HPF Urine Bacteria 4+ (None Seen) Hyaline Casts 11-20 (0-2) /LPF Independent Interpretation I performed an independent interpretation of an: CT Scan (abnormal CT scan) Radiology Impression Discussion of test interpretation with radiology: I have reviewed the radiologist's reading. Procedures Procedure Narrative Procedure Narrative: bedside US - urine noted with some debris I do not see the james balloon under sterile guidance with sterile gloves and hands I deflated the balloon no pain and slowly advanced and fill balloon again with same amount of water - there is still yellow urine and he has no pain yet I cannot see the balloon on bedside US EBEN limited bedside bladder US 10/30/24 1109pm, sterile gloves and betadine precaution Discharge Plan Discharge Clinical Impression: Urinary tract infection, Abnormal CT scan, Elevated WBC count Patient Disposition: Admitted As Inpatient Prescriptions: No Action ([place]) patrick Herbert See Rx Instructions .Route Qty: 1 0RF Rx Instructions: Katarzyna nguyen lisinopril 10 mg tablet 10 mg PO DAILY Qty: 90 1RF finasteride 5 mg tablet 5 mg PO DAILY Qty: 90 1RF sulfamethoxazole-trimethoprim [Bactrim] 400-80 mg tablet 1 tab PO DAILY Qty: 10 0RF tranexamic acid 650 mg tablet 650 mg PO DAILY 5 Days Qty: 5 0RF phenytoin sodium extended 100 mg capsule 300 mg PO DAILY folic acid 1 mg tablet 1 mg PO DAILY One-A-Day Men's 50 Plus(vit K) 400-20-370 mcg tablet 1 tab PO DAILY tamsulosin 0.4 mg capsule 0.4 mg PO DAILY 90 Days Qty: 90 1RF Print Language: Irish
[2024-10-30 23:10] LABS: Appearance Urine Turbid; Color Urine Yellow; Glucose Urine UA Negative (Negative); Leukocyte Esterase Urine Large (3+) (Negative); Nitrite Urine Negative (Negative); PH 5.5 (5.0-9.0); UMIC TRIGGER UA YES; Urine Blood Large (3+) (Negative); Urine Ketones Trace mg/dL (Negative); Urine Protein 300 (3+) mg/dL (Neg-Trace)
[2024-10-30 23:20] LABS: Bacteria Urine 4+ (None Seen); RBC Urine >20 /HPF (0-2); Squamous Epithelial Cell Urine 0-2 /HPF (0-2); WBC Clumps Urine Present; WBC Urine >50 /HPF (0-5)
[2024-10-31 01:10] VITALS: BP 145/79; PULSE 64; RESP 16; TEMP 36.8; O2SAT 99
--- NOTE | 2024-10-31 01:18 | PC.NURSE ---
hospitalist at bedside, second set of cultures delayed, abx delayed
[2024-10-31 01:26] LABS: Lactic Acid 0.7 mmol/L (0.5-2.0)
[2024-10-31] MEDS: cefEPime HCl/D5W 2 GM/50 ML PIGGYBACK IV ×3 (01:33→16:01)
--- NOTE | 2024-10-31 01:37 | PM.IMHP ---
History of Present Illness Date of Service: 10/31/24 Attending physician on admission: Sergio Gregg Chief Complaint: Bloody urine Nayan Aly is a 69 years old man with past medical history significant for BPH, bladder outlet obstruction s/p GreenLight laser enucleation of the prostate + indwelling urinary catheter insertion by Dr. Ramsey on October 12, tuberous sclerosis and seizure disorder presents to the emergency department after he noted bloody urine in the bag associated with pending of pain and lower abdominal discomfort. He thinks that he might have pulled the Garza catheter accidentally. He denied any fever or chills. He did not report any headache, dizziness, nausea, diarrhea and vomiting. He does not take blood thinners. He recently completed a course of Bactrim from the procedure. In the ED, he was found to have normal vital signs. Blood workup showed no leukocytosis of 13.3, hemoglobin is 11.2 and platelets 381. Renal and liver are unremarkable. Urinalysis consistent with urinary tract infection and hematuria. Abdominal pelvis CT scan showed multifocal sclerosis concerning for diffuse osseous metastasis disease, inferior and/or low position of the image folic type catheter, wall thickening of the urinary bladder and severe stool burden without small bowel obstruction. There is no obstructing stone in either kidney or either ureter. ED tx: Cefepime 2 g IV. Review of Systems Review of Systems: All 12 systems were reviewed and normal except as noted in HPI. [facility]LY [facility], [facility] Medical History Renal calculi BPH (benign prostatic hyperplasia) Prostate cancer Chronic radicular pain of lower back Lumbar disc disease Low vitamin B12 level Seizure HTN (hypertension) Tuberous sclerosis Family History (Updated 05/28/24 @ 14:57 by BARRETT Paz) Father Colon cancer Mother Stomach cancer Breast cancer Surgical History H/O colonoscopy Social History Household Members: Family Housing: House Do you presently have visiting nurse or other home services: No Patient Tobacco Use Status: Former Tobacco user Years Smoked: quit 1987 e-Cigarette/Vaping Use: Never Used Second Hand Smoke Exposure: No Advance Directives: No Advance Directives Information Provided: Yes Do you have a plan to hurt others: No Plan service: No Current occupational status: retired Cognitive needs: No Hearing needs: No Vision needs: No Meds Allergies Allergy/AdvReac Type Severity Reaction Status Date / Time No Known Allergies Allergy Verified 10/30/24 21:53 Active Medications: Current Medications Acetaminophen (Acetaminophen 325 Mg Tablet) 975 mg PO Q6H PRN PRN Reason: Pain, Mild 1-3,fever,headache Sodium Chloride (0.9 % Sodium Chloride Flush 3 Ml Syringe) 3 ml IVFLUSH QSHIFT [facility] Home Medications ?Medication ?Instructions ?Recorded ?Confirmed ?Last Taken ?Type phenytoin sodium extended 100 mg 300 mg PO DAILY 05/09/21 10/08/24 10/12/24 History capsule folic acid 1 mg tablet 1 mg PO DAILY 05/02/22 05/28/24 03/24/24 History prkrkawcxrut-wub-vfmrj acid-vit 1 tab PO DAILY 07/02/22 05/28/24 03/24/24 History K-lycop 400 mcg-20 mcg-370 mcg tablet (One-A-Day Men's 50 Plus (with vitamin K)) Physical Exam Vital Signs and Narrative: Vital Signs: Last Vital Signs Temp 98.3 F 10/31/24 01:10 Pulse 64 10/31/24 01:10 Resp 16 10/31/24 01:10 BP 145/79 H 10/31/24 01:10 Pulse Ox 99 10/31/24 01:10 O2 Del Method Room Air 10/31/24 01:10 BMI result Body Mass Index 25.1 Constitutional - Awake and Alert, No apparent distress. Afebrile. HEENT - PERRL, EOMI Heart - S1S2, RRR, No murmur Lungs - Normal lung expansion, Normal respiratory effort, No respiratory distress, CTA bilaterally Abdomen - NT / ND; +BS; No rebound or guarding - indwelling urinary catheter in place, no blood noticed around urethra, clear yellow urine noted inside tubing. Dark urine noted inside back. Extremities - no calf tenderness bilaterally, no swelling Musculoskeletal - Normal inspection, normal ROM Skin - Warm/Dry. No pallor. Neurological - Alert & oriented x3. No focal weakness grossly noted. Psychological - Appropriate affect Results Labs 10/30/24 22:15 10/30/24 22:15 Labs: Laboratory Results - last 24 hr 10/30/24 10/30/24 10/31/24 22:15 23:03 01:04 MCV 88.5 MCH 31.3 MCHC 35.3 RDW 12.1 Plt Count 381 D MPV 8.7 L Immature Gran % (Auto) 0.6 H Neut % (Auto) 74.0 H Lymph % (Auto) 16.1 L [place] % (Auto) 7.3 Eos % (Auto) 1.8 Baso % (Auto) 0.2 Lymph # (Auto) 2.1 [place] # (Auto) 1.0 Eos # (Auto) 0.2 Baso # (Auto) 0.0 Abs Immat Gran (auto) 0.08 H Absolute Neuts (auto) 9.8 H Absolute Nucleated RBC 0.000 Nucleated RBC % (auto) 0.0 Anion Gap 13 Estim Creat Clear Calc 63.3 Estimated GFR > 60 Random Glucose 92 Lactic Acid 0.7 Calcium 9.1 D Total Bilirubin 0.2 AST 23 ALT 22 Alkaline Phosphatase 133 H Total Protein 7.1 Albumin 3.8 Urine Color Yellow Urine Appearance Turbid Urine pH 5.5 Ur Specific [place] 1.020 Urine Protein 300 (3+) H Urine Glucose (UA) Negative Urine Ketones Trace Urine Blood Large (3+) H Urine Nitrite Negative Ur Leukocyte Esterase Large (3+) H Urine RBC >20 H Urine WBC >50 H Urine WBC Clumps Present Ur Squamous Epith Cells 0-2 Urine Bacteria 4+ Hyaline Casts 11-20 Assessment and Plan (1) Catheter-associated urinary tract infection: Qualifiers: Indwelling urinary catheter type: indwelling urethral catheter Encounter type: initial encounter Qualified Code(s): T83.511A - Infection and inflammatory reaction due to indwelling urethral catheter, initial encounter; N39.0 - Urinary tract infection, site not specified Status: Acute (2) Gross hematuria: Status: Acute Plan Nayan Aly is a 69 y/o man admitted: Catheter-associated UTI + gross hematuria (traumatic vs hemorrhagic cystitis). s/p recent GreenLight laser enucleation of the prostate by Dr. Ramsey (October 12). Admit to hospitalist service. Continue empiric IV antibiotic with cefepime. Continue finasteride. Urine and blood culture obtained -will follow results. Urology consult to consider indwelling urinary catheter if appropriate. ED team repositioned the indwelling catheter after the tip of the catheter was noted to be in the prostate. Seizure disorder. Continue phenytoin. Essential hypertension. Continue lisinopril. DVT prophylaxis: SCDs, early ambulation Code status: Full Patient will need hospitalization for at least 2 midnights for catheter associated UTI after recent urological procedure treatment with IV antibiotics evaluation by urology service for further management and evaluation. Quality Stroke Does the patient have a stroke diagnosis?: No VTE Prior VTE?: No VTE Risk Level:: Medical - moderate - high VTE Device Contraindication: N/A - Device Ordered VTE Drug Contraindication: N/A - Med Ordered
--- NOTE | 2024-10-31 02:10 | PC.NURSE ---
per MD Tovar, catheter balloon was deflated, tried to push catheter further into bladder and re inflate balloon with 20ml. catheter would not advance any more than previously inserted. when reinflated, pt experienced pain, re inflated balloon to 7ml which was the amount that was initially removed from balloon. hospitalist made aware.
[2024-10-31 05:18] LABS: MANUAL DIFF FLAG NO
[2024-10-31 05:21] LABS: Basophils Absolute Auto 0.1 X10*3/uL (0.0-0.2); Basophils Percent Auto 0.5 % (0-2); Eosinophils Absolute Auto 0.2 X10*3/uL (0.0-0.4); Eosinophils Percent Auto 2.3 % (0-4); Hematocrit 33.3 % (42.0-52.0); Hemoglobin 11.3 g/dl (14.0-18.0); Imm Gran Abs Auto 0.05 X10*3/uL (0.00-0.03); Imm Gran Pct Auto 0.5 % (0.0-0.4); Lymphocytes Absolute Auto 1.8 X10*3/uL (1.2-4.9); Lymphocytes Percent Auto 19.8 % (20-40); Mean Corpuscular HGB Conc 33.9 g/dl (31.0-36.0); Mean Corpuscular Hemoglobin 30.9 pg (27.0-33.0); Monocytes Absolute Auto 0.8 X10*3/uL (0.1-1.2); Monocytes Percent Auto 8.1 % (2-11); Neutrophils Absolute Auto 6.4 x10*3/uL (2.0-8.3); Neutrophils Percent Auto 68.8 % (45-73); Platelet Count 361 X10*3/uL (160-400); Red Blood Count 3.66 X10*6/uL (4.60-5.80); Red Cell Distribution Width 12.2 % (11.0-16.0); White Blood Count 9.3 X10*3/uL (4.8-10.8)
[2024-10-31 05:32] LABS: Anion Gap 14 (12-20); Blood Urea Nitrogen 14 mg/dL (9-16); Carbon Dioxide 22 mmol/L (22-29); Chloride 109 mmol/L (96-108); Creatinine Clr Calc Pharmacy 74.7; Estimated Glomerular Filt Rate > 60; Glucose Random 84 mg/dL (60-115); Potassium 3.6 mmol/L (3.3-5.1); Sodium 141 mmol/L (135-145)
[2024-10-31 05:47] VITALS: BP 150/74; PULSE 62; RESP 16; TEMP 36.8; O2SAT 99
[2024-10-31 08:02] VITALS: BP 140/69
[2024-10-31] MEDS: lisinopriL 10 MG TABLET PO (08:02)
[2024-10-31] MEDS: Finasteride 5 MG TABLET PO (08:03)
--- NOTE | 2024-10-31 09:35 | PHA.MEDREC ---
Addendum entered by Christa Aleman RPh 10/31/24 09:55: reviewed by [facility]. Original Note: Pharmacy Consult ? Medication Reconciliation Pharmacy has completed the medication reconciliation. Spoke to patient to confirm med list. Patient was able to confirm all of his medications. Patient states he takes Phenytoin sod 200mg QAM and 100 mg QPM. Patient last had his medications yesterday.
[2024-10-31] MEDS: Phenytoin Sodium Extended 100 MG CAPSULE 200 MG PO (10:06)
--- NOTE | 2024-10-31 10:27 | PM.EVENT ---
Event Note Date of Service: 10/31/24 Event Note: seen and evaluated urine clearing up pending cultures keep on Cefepime pending urology evaluation Time Spent With Patient Time: Total time managing care of this patient today ____ minutes.
[2024-10-31] MEDS: Tamsulosin HCL 0.4 MG CAPSULE PO (10:53)
[2024-10-31] MEDS: Acetaminophen 325 MG TABLET 975 MG PO (14:10)
--- NOTE | 2024-10-31 14:28 | MHC.CM.PN ---
pt lives w/family is independent has no services will arrange own transport home dc plan home n/s
[2024-10-31 14:54] VITALS: BP 142/77; PULSE 63; RESP 15; TEMP 37.1; O2SAT 97
[2024-10-31 19:57] VITALS: BMI 25.1
[2024-10-31 20:00] VITALS: BP 139/70; PULSE 71; RESP 20; TEMP 36.2; O2SAT 96
[2024-10-31] MEDS: Phenytoin Sodium Extended 100 MG CAPSULE PO (20:30)
[2024-10-31] MEDS: 0.9 % Sodium Chloride Flush 3 ML SYRINGE IVFLUSH (20:42)
[2024-11-01] MEDS: cefEPime HCl/D5W 2 GM/50 ML PIGGYBACK IV ×3 (01:21→16:54)
[2024-11-01] MEDS: Acetaminophen 325 MG TABLET 975 MG PO ×3 (01:32→15:12)
[2024-11-01 03:15] VITALS: BP 127/63; PULSE 67; RESP 18; TEMP 36.5; O2SAT 99
[2024-11-01 07:11] VITALS: BP 138/72; PULSE 66; RESP 14; TEMP 36.7; O2SAT 96
[2024-11-01 08:08] LABS: MANUAL DIFF FLAG NO
[2024-11-01 08:09] LABS: Basophils Percent Auto 0.3 % (0-2); Eosinophils Absolute Auto 0.2 X10*3/uL (0.0-0.4); Eosinophils Percent Auto 1.7 % (0-4); Hematocrit 31.8 % (42.0-52.0); Imm Gran Abs Auto 0.05 X10*3/uL (0.00-0.03); Imm Gran Pct Auto 0.4 % (0.0-0.4); Lymphocytes Absolute Auto 1.4 X10*3/uL (1.2-4.9); Lymphocytes Percent Auto 11.9 % (20-40); Mean Corpuscular HGB Conc 34.6 g/dl (31.0-36.0); Mean Corpuscular Hemoglobin 31.9 pg (27.0-33.0); Mean Corpuscular Volume 92.2 fL (80.0-98.0); Mean Platelet Volume 9.1 fL (9.4-12.4); Monocytes Absolute Auto 1.1 X10*3/uL (0.1-1.2); Monocytes Percent Auto 9.5 % (2-11); Neutrophils Absolute Auto 8.8 x10*3/uL (2.0-8.3); Neutrophils Percent Auto 76.2 % (45-73); Platelet Count 357 X10*3/uL (160-400); Red Blood Count 3.45 X10*6/uL (4.60-5.80); Red Cell Distribution Width 12.4 % (11.0-16.0); White Blood Count 11.6 X10*3/uL (4.8-10.8)
[2024-11-01 08:17] VITALS: BP 130/69
[2024-11-01] MEDS: Phenytoin Sodium Extended 100 MG CAPSULE 200 MG PO (08:17)
[2024-11-01] MEDS: Folic Acid 1 MG TABLET PO (08:17)
[2024-11-01] MEDS: lisinopriL 10 MG TABLET PO (08:17)
[2024-11-01] MEDS: Finasteride 5 MG TABLET PO (08:22)
[2024-11-01] MEDS: Tamsulosin HCL 0.4 MG CAPSULE PO (08:22)
[2024-11-01 08:28] LABS: Anion Gap 11 (12-20); Blood Urea Nitrogen 17 mg/dL (9-16); Calcium 9.2 mg/dL (8.4-10.2); Carbon Dioxide 27 mmol/L (22-29); Chloride 107 mmol/L (96-108); Creatinine Clr Calc Pharmacy 68.9; Estimated Glomerular Filt Rate > 60; Glucose Random 81 mg/dL (60-115); Potassium 4.1 mmol/L (3.3-5.1); Sodium 141 mmol/L (135-145)
[2024-11-01] MEDS: 0.9 % Sodium Chloride Flush 3 ML SYRINGE IVFLUSH ×3 (08:29→20:02)
--- NOTE | 2024-11-01 10:26 | P.CNUR_ITS ---
History of Present Illness Consult details Consult date: 11/01/24 Narrative: Nayan Aly is a 69 years old man with past medical history significant for tuberous sclerosis and seizure disorder, BPH, bladder outlet obstruction s/p GreenLight laser enucleation of the prostate + indwelling urinary catheter insertion by on October 12, presented to the emergency room with abdominal pain and hematuria. Denied fever. The patient is not on blood thinners. Urinalysis is suggestive for UTI and he has been receiving IV antibiotics. Review of Systems 2 Review of Systems: Yes all other systems are reviewed and are negative Constitutional: Constitutional: Reports no additional constitutional complaints Eyes: Eyes: Reports no additional eye complaints ENT: Reports system reviewed and no additional complaints, except as documented Cardiovascular: Cardiovascular: Reports no additional cardiovascular complaints Respiratory: Respiratory: Reports no additional respiratory complaints Gastrointestinal: Gastrointestinal: Reports no additional gastrointestinal complaints Genitourinary: Genitourinary: Reports as per HPI Musculoskeletal: Musculoskeletal: Reports no additional musculoskeletal complaints Integumentary/Breasts: Skin/Breast: Reports system reviewed and no additional complaints, except as docu Neurologic: Reports system reviewed and no additional complaints, except as documented Psychiatric: Psychiatric: Reports no additional psychiatric complaints Endocrine: Endocrine: Reports no additional endocrine complaints Hematologic/Lymphatic: Hematologic/Lymphatic: Reports no additional hematologic/lymphatic complaints Allergic/Immunologic: Allergic/Immunologic: Reports no additional allergic/immunologic complaints [facility] Past Medical History Medical History Renal calculi BPH (benign prostatic hyperplasia) Prostate cancer Chronic radicular pain of lower back Lumbar disc disease Low vitamin B12 level Seizure HTN (hypertension) Tuberous sclerosis Family History Family History (Updated 05/28/24 @ 14:57 by BARRETT Paz) Father Colon cancer Mother Stomach cancer Breast cancer Surgical History Surgical History H/O colonoscopy Social History Social History Household Members: Family Housing: House Do you presently have visiting nurse or other home services: No Patient Tobacco Use Status: Former Tobacco user Years Smoked: quit 1987 e-Cigarette/Vaping Use: Never Used Second Hand Smoke Exposure: No service: No Current occupational status: retired Cognitive needs: No Hearing needs: No Vision needs: No Meds Allergies Allergy/AdvReac Type Severity Reaction Status Date / Time No Known Allergies Allergy Verified 10/30/24 21:53 Active Medications: Current Medications Acetaminophen (Acetaminophen 325 Mg Tablet) 975 mg PO Q6H PRN PRN Reason: Pain, Mild 1-3,fever,headache Last Admin: 11/01/24 08:21 Dose: 975 mg Finasteride (Finasteride 5 Mg Tablet) 5 mg PO DAILY [facility] Last Admin: 11/01/24 08:22 Dose: 5 mg Folic Acid (Folic Acid 1 Mg Tablet) 1 mg PO DAILY [facility] Last Admin: 11/01/24 08:17 Dose: 1 mg Cefepime HCl (Maxipime) 2 gm in 50 mls @ 100 mls/hr IV Q8H [facility] Last Infusion: 11/01/24 08:59 Dose: Infused Lisinopril (Lisinopril 10 Mg Tablet) 10 mg PO DAILY [facility]; Protocol Last Admin: 11/01/24 08:17 Dose: 10 mg Phenytoin Sodium (Phenytoin Sodium Extended 100 Mg Capsule) 200 mg PO DAILY [facility] Last Admin: 11/01/24 08:17 Dose: 200 mg Phenytoin Sodium (Phenytoin Sodium Extended 100 Mg Capsule) 100 mg PO BEDTIME [facility] Last Admin: 10/31/24 20:30 Dose: 100 mg Sodium Chloride (0.9 % Sodium Chloride Flush 3 Ml Syringe) 3 ml IVFLUSH QSHIFT [facility] Last Admin: 11/01/24 08:29 Dose: 3 ml Tamsulosin HCl (Tamsulosin Hcl 0.4 Mg Capsule) 0.4 mg PO DAILY [facility] Last Admin: 11/01/24 08:22 Dose: 0.4 mg Home Medications ?Medication ?Instructions ?Recorded ?Confirmed ?Last Taken ?Type folic acid 1 mg tablet 1 mg PO DAILY 05/02/22 10/31/24 03/24/24 History multivitamin 1 tab PO DAILY 10/31/24 10/31/24 Unknown History phenytoin sodium extended 100 mg 100 mg PO BEDTIME 10/31/24 10/31/24 Unknown History capsule phenytoin sodium extended 100 mg 200 mg PO DAILY 10/31/24 10/31/24 Unknown History capsule Physical Exam 2 Vital Signs: Vital Signs: Last Vital Signs Temp 98.1 F 11/01/24 07:11 Pulse 66 11/01/24 07:11 Resp 14 11/01/24 07:11 BP 130/69 11/01/24 08:17 Pulse Ox 96 11/01/24 07:11 O2 Del Method Room Air 11/01/24 07:11 BMI result Body Mass Index 25.1 Results Labs 11/01/24 07:12 11/01/24 07:12 Labs: Abnormal lab results 11/01/24 Range/Units 07:12 WBC 11.6 H (4.8-10.8) X10*3/uL RBC 3.45 L (4.60-5.80) X10*6/uL Hgb 11.0 L (14.0-18.0) g/dl Hct 31.8 L (42.0-52.0) % MPV 9.1 L (9.4-12.4) fL Neut % (Auto) 76.2 H (45-73) % Lymph % (Auto) 11.9 L (20-40) % Abs Immat Gran (auto) 0.05 H (0.00-0.03) X10*3/uL Absolute Neuts (auto) 8.8 H (2.0-8.3) x10*3/uL Anion Gap 11 L (12-20) BUN 17 H (9-16) mg/dL Short CBC 11/01/24 Range/Units 07:12 WBC 11.6 H (4.8-10.8) X10*3/uL Hgb 11.0 L (14.0-18.0) g/dl Hct 31.8 L (42.0-52.0) % Plt Count 357 (160-400) X10*3/uL BMP 11/01/24 07:12 Sodium 141 Potassium 4.1 Chloride 107 Carbon Dioxide 27 BUN 17 H Creatinine 1.03 Calcium 9.2 Urine 10/30/24 Range/Units 23:03 Urine Color Yellow Urine Appearance Turbid Urine pH 5.5 (5.0-9.0) Ur Specific Innis 1.020 (1.005-1.025) Urine Protein 300 (3+) H (Neg-Trace) mg/dL Urine Glucose (UA) Negative (Negative) mg/dL Imaging Abdomen CT scan report/results: report reviewed and image reviewed CT scan - pelvis: report reviewed and image reviewed Additional studies: Date of Service: 10/30/24 CLINICAL HISTORY: pelvic pain, new onset hematuria, sp greenlight CT abdomen and pelvis without contrast Comparison: None Findings: Mild bibasilar atelectasis and scarring, right worse than left. No obstructing stone in either kidney or either ureter. Cystic structures of the exophytic lesions of the kidneys are not characterize without intravenous contrast. Mild adrenal hyperplasia. The spleen is nonenlarged. Mild volume loss of the pancreas. Gallbladder is unremarkable for CT. Nonspecific cystic appearing lesion in the right 2 cm. Small mesenteric and periaortic lymph nodes are nonspecific and likely reactive. No small bowel obstruction. The appendix is within normal limits (imaged 424 of series 4). Severe stool burden is present, including the cecum. Mild wall thickening of the large intestine is nonspecific. Moderate to severe thickening of the urinary bladder is concerning for cystitis. Urothelial lesion not excluded by CT. Prostate gland measures 5.8 cm transverse. Bulb of the catheter terminates about the lower margin of the imaged prostate. Tip of the catheter appears in the prostate. Trace right and small left fat containing inguinal hernias. Calcified and noncalcified plaque involving the imaged aorta and its branches. Multifocal sclerosis concerning for osseous metastatic disease appears diffuse. No resulting compression fracture of the imaged vertebrae. Mild-moderate osteoarthritis of the both hips. Additional degenerative changes include facet arthropathy of the lumbar spine and vacuum disc phenomenon at L5-S1. IMPRESSION: 1. Multifocal sclerosis concerning for diffuse osseous metastatic disease (blastic). 2. Inferior and/or low positioning of the imaged James type catheter. Please consider repositioning post balloon deflation, if clinically indicated and/or clinically able. 3. Wall thickening of the urinary bladder is nonspecific by CT. 4. Severe stool burden. No small bowel obstruction. 5. No obstructing stone in either kidney or either ureter. 6. Nonspecific cystic lesion in the right lobe of the liver. Please consider short-term follow-up to ensure stability. Assessment and Plan (1) Urinary tract infection: Qualifiers: Encounter type: initial encounter Indwelling urinary catheter type: i ndwelling urethral catheter Urinary tract infection type: catheter-associated UTI Qualified Code(s): T83.511A - Infection and inflammatory reaction due to indwelling urethral catheter, initial encounter; N39.0 - Urinary tract infection, site not specified Status: Acute (2) Urinary retention due to benign prostatic hyperplasia: Status: Acute Plan Hematuria is improving. Pt failed voiding trial on 10/15. on CT images james balloon not in bladder. I will change james Procedures Date of Service Date of Service: 11/01/24 Catheter Insertion (Urinary) Date of insertion: 11/01/24 Replacement of catheter present on admission: Yes Reason for placing: Other (hematuria) Bladder scan/ultrasound used before catheterization: No Antiseptic solution prep: Povidone-Iodine Topical anesthesia used: Yes Catheter type/location: 2-way Urethral Size (Bolivian): 20 Catheter balloon size (mL): 10 Catheter balloon amount: 15 Results: successfully catheterized-immediate flow and consulted Procedure performed: without complications
[2024-11-01] MEDS: Lidocaine HCl 2 % Urojet 10 ML JEL.PF.APP TOPICAL (11:34)
--- NOTE | 2024-11-01 13:59 | HO.PM.IMPN ---
Subjective Subjective Date of Service: 11/01/24 Interval History: seen and evaluated hematuria resolved Urology changed james waiting final cultures Review of Systems Review of Systems: Yes all other systems are reviewed and are negative Physical Exam Vital Signs: Vital Signs: Last Vital Signs Temp 98.1 F 11/01/24 07:11 Pulse 66 11/01/24 07:11 Resp 14 11/01/24 07:11 BP 130/69 11/01/24 08:17 Pulse Ox 96 11/01/24 07:11 O2 Del Method Room Air 11/01/24 07:11 BMI result Body Mass Index 25.1 Const: Other: Constitutional : interactive, not in distress Cardiovascular : no JVP, no lower extremity edema Respiratory : bilateral chest movement, not in resp distress Gastrointestinal: soft, lax, Non tender Skin : Warm, Dry Urology: James in place Neurological : Alert & oriented , No focal deficit Objective Data Active Medications Acetaminophen (Acetaminophen 325 Mg Tablet) 975 mg PO Q6H PRN PRN Reason: Pain, Mild 1-3,fever,headache Last Admin: 11/01/24 08:21 Dose: 975 mg Documented By: LESLIE Finasteride (Finasteride 5 Mg Tablet) 5 mg PO DAILY [facility] Last Admin: 11/01/24 08:22 Dose: 5 mg Documented By: LESLIE Folic Acid (Folic Acid 1 Mg Tablet) 1 mg PO DAILY [facility] Last Admin: 11/01/24 08:17 Dose: 1 mg Documented By: LESLIE Cefepime HCl (Maxipime) 2 gm in 50 mls @ 100 mls/hr IV Q8H [facility] Last Infusion: 11/01/24 08:59 Dose: Infused Documented By: LESLIE Lisinopril (Lisinopril 10 Mg Tablet) 10 mg PO DAILY [facility]; Protocol Last Admin: 11/01/24 08:17 Dose: 10 mg Documented By: LESLIE Phenytoin Sodium (Phenytoin Sodium Extended 100 Mg Capsule) 200 mg PO DAILY [facility] Last Admin: 11/01/24 08:17 Dose: 200 mg Documented By: LESLIE Phenytoin Sodium (Phenytoin Sodium Extended 100 Mg Capsule) 100 mg PO BEDTIME [facility] Last Admin: 10/31/24 20:30 Dose: 100 mg Documented By: BARTOLORISMicha Sodium Chloride (0.9 % Sodium Chloride Flush 3 Ml Syringe) 3 ml IVFLUSH QSHIFT [facility] Last Admin: 11/01/24 08:29 Dose: 3 ml Documented By: LESLIE Tamsulosin HCl (Tamsulosin Hcl 0.4 Mg Capsule) 0.4 mg PO DAILY [facility] Last Admin: 11/01/24 08:22 Dose: 0.4 mg Documented By: LESLIE Labs 11/01/24 07:12 11/01/24 07:12 Labs: Laboratory Results - last 24 hr 11/01/24 07:12 MCV 92.2 MCH 31.9 MCHC 34.6 RDW 12.4 Plt Count 357 MPV 9.1 L Immature Gran % (Auto) 0.4 Neut % (Auto) 76.2 H Lymph % (Auto) 11.9 L [place] % (Auto) 9.5 Eos % (Auto) 1.7 Baso % (Auto) 0.3 Lymph # (Auto) 1.4 [place] # (Auto) 1.1 Eos # (Auto) 0.2 Baso # (Auto) 0.0 Abs Immat Gran (auto) 0.05 H Absolute Neuts (auto) 8.8 H Absolute Nucleated RBC 0.000 Nucleated RBC % (auto) 0.0 Anion Gap 11 L Estim Creat Clear Calc 68.9 Estimated GFR > 60 Random Glucose 81 Calcium 9.2 Microbiology Microbiology Results: Microbiology 10/31/24 01:05 Urine Culture - Final Urine Catheterized - James Catheter 10/31/24 01:27 Blood Culture - Preliminary Blood - Venous No growth after 24 hours. 10/31/24 01:04 Blood Culture - Preliminary Blood - Venous No growth after 24 hours. Assessment and Plan (1) Gross hematuria: Status: Acute (2) Catheter-associated urinary tract infection: Status: Acute Plan Nayan Aly is a 69 y/o man admitted: Catheter-associated UTI suspected on Cefepime pending final cultures gross hematuria (traumatic vs hemorrhagic cystitis) s/p recent GreenLight laser enucleation of the prostate by Dr. Ramsey (October 12) Continue finasteride Urology consult and changed indwelling urinary catheter as CT scan showed James ballon not in bladder Seizure disorder. Continue phenytoin. Essential hypertension. Continue lisinopril. DVT prophylaxis: SCDs, early ambulation Code status: Full Patient will need hospitalization overnight for catheter associated UTI after recent urological procedure treatment with IV antibiotics evaluation by urology service for further management and evaluation. Quality Stroke Does the patient have a stroke diagnosis?: No VTE Prior VTE?: No VTE Risk Level:: Medical - moderate - high VTE Device Contraindication: N/A - Device Ordered VTE Drug Contraindication: N/A - Med Ordered
[2024-11-01 15:08] VITALS: BP 126/66; PULSE 72; RESP 16; TEMP 36.8; O2SAT 97
[2024-11-01 19:44] VITALS: BP 129/64; PULSE 69; RESP 18; TEMP 37.1; O2SAT 97
[2024-11-01] MEDS: Phenytoin Sodium Extended 100 MG CAPSULE PO (20:02)
[2024-11-02] MEDS: cefEPime HCl/D5W 2 GM/50 ML PIGGYBACK IV ×2 (01:12→08:56)
[2024-11-02 03:33] VITALS: BP 130/67; PULSE 74; RESP 16; TEMP 36.9; O2SAT 96
[2024-11-02 08:00] VITALS: BP 131/64; PULSE 72; RESP 16; TEMP 36.5; O2SAT 97
[2024-11-02] MEDS: Tamsulosin HCL 0.4 MG CAPSULE PO (09:00)
[2024-11-02] MEDS: 0.9 % Sodium Chloride Flush 3 ML SYRINGE IVFLUSH (09:00)
[2024-11-02] MEDS: Folic Acid 1 MG TABLET PO (09:00)
[2024-11-02 09:01] VITALS: BP 131/64
[2024-11-02] MEDS: lisinopriL 10 MG TABLET PO (09:01)
[2024-11-02] MEDS: Phenytoin Sodium Extended 100 MG CAPSULE 200 MG PO (09:01)
[2024-11-02] MEDS: Finasteride 5 MG TABLET PO (09:01)
[2024-11-02] MEDS: Ibuprofen 400 MG TABLET PO (10:29)
[2024-11-02] MEDS: Famotidine 20 MG TABLET PO (10:29)
--- NOTE | 2024-11-02 10:51 | P.DS_ITS ---
DS: Providers Provider Date of Service: 11/02/24 Date of admission: 10/31/24 01:26 Date of discharge: 11/02/24 Primary care physician: Maninder Fuller [facility]- Consults: 10/31/24 01:50 Consult to Urology Stat Consulting Provider: [facility] [place] Urology Services Reason for consultation: Gross hematuria, s/p urologic procedure by Dr. Ramsey, UTI Has provider been notified: No DS: Diagnosis Discharge Diagnosis (1) Gross hematuria: Status: Acute (2) Urinary retention due to benign prostatic hyperplasia: Status: Acute (3) Abnormal CT scan: Status: Acute DS: Summary Hospital Course Hospital Course: Admission note HPI Nayan Aly is a 69 years old man with past medical history significant for BPH, bladder outlet obstruction s/p GreenLight laser enucleation of the prostate + indwelling urinary catheter insertion by Dr. Ramsey on October 12, tuberous sclerosis and seizure disorder presents to the emergency department after he noted bloody urine in the bag associated with pending of pain and lower abdominal discomfort. He thinks that he might have pulled the James catheter accidentally. He denied any fever or chills. He did not report any headache, dizziness, nausea, diarrhea and vomiting. He does not take blood thinners. He recently completed a course of Bactrim from the procedure. In the ED, he was found to have normal vital signs. Blood workup showed no leukocytosis of 13.3, hemoglobin is 11.2 and platelets 381. Renal and liver are unremarkable. Urinalysis consistent with urinary tract infection and hematuria. Abdominal pelvis CT scan showed multifocal sclerosis concerning for diffuse osseous metastasis disease, inferior and/or low position of the image folic type catheter, wall thickening of the urinary bladder and severe stool burden without small bowel obstruction. There is no obstructing stone in either kidney or either ureter. Hospital course The patient was admitted for evaluation of gross hematuria likely traumatic from placement of james catheter close to bladder neck as CT scan showed Inferior and/or low positioning of the imaged James type catheter. Please consider repositioning post balloon deflation. s/p recent GreenLight laser enucleation of the prostate by Dr. Ramsey (October 12). Kept on Tamsulosin and Finasteride. Urology consult and changed indwelling urinary catheter as CT scan showed James ballon not in bladder. Hematuria resolved. no drop in hemoglobin level. complained of uretheral pain which was discussed with urology. recommended prn pain medications and follow up as outpatient. To use PRN Ibuprofen and Tylenol. Famotidine was prescribed for stomach protection. He was noted to have abnormal urine analysis suspected urine infection and covered with Cefepime pending final cultures which turned out negative. no need for antibiotics on discharge. Seen by PT who recommended home VNA. to discharge with home PT. CT scan also reported Multifocal sclerosis concerning for osseous metastatic disease appears diffuse. No resulting compression fracture of the imaged vertebrae. To be followed by PCP and URology as outpatient. He had constipation on CT. given Laxatives and moved his bowels. Continue Laxatives at home. Discharge plan Tylenol and Ibuprofen as needed for pain Famotidine for stomach protection while on Ibuprofen Follow with URology in office in 2 weeks No evidence of infection in your urine; no need for antibiotics Time Attestation Discharge Coordination Time (in mins): 41 Quality: Safe Use of Opioids Does Pt have an Active Cancer Diagnosis on the Problem List?: Yes Opioid Measure Date for [facility] Report: 10/03/[address] Time for [facility] Report: 11:28 Quality: Stroke Does the patient have a stroke diagnosis?: No Physical Exam Vital Signs: Vital Signs: Last Vital Signs Temp 97.7 F 11/02/24 08:00 Pulse 72 11/02/24 08:00 Resp 16 11/02/24 08:00 BP 131/64 11/02/24 09:01 Pulse Ox 97 11/02/24 08:00 O2 Del Method Room Air 11/02/24 08:00 BMI result Body Mass Index 25.1 Const: Other: Constitutional : interactive, not in distress Cardiovascular : no JVP, no lower extremity edema Respiratory : bilateral chest movement, not in resp distress Gastrointestinal: soft, lax, Non tender Skin : Warm, Dry Urology: James in place with clear urine. Neurological : Alert & oriented , No focal deficit DS: Data Data Completed and Pending Labs on day of discharge: Preliminary micro results at discharge 10/31/24 01:27 Blood Culture - Preliminary Blood - Venous No growth after 48 hours. 10/31/24 01:04 Blood Culture - Preliminary Blood - Venous No growth after 48 hours. Imaging Chest x-ray: Radiologist's impression: IMPRESSION: 1. Multifocal sclerosis concerning for diffuse osseous metastatic disease (blastic). 2. Inferior and/or low positioning of the imaged James type catheter. Please consider repositioning post balloon deflation, if clinically indicated and/or clinically able. 3. Wall thickening of the urinary bladder is nonspecific by CT. 4. Severe stool burden. No small bowel obstruction. 5. No obstructing stone in either kidney or either ureter. 6. Nonspecific cystic lesion in the right lobe of the liver. Please consider short-term follow-up to ensure stability. Discharge Plan Discharge Anticipated Discharge Date/Time: 11/02/24 10:47 Patient Disposition: Home Health Service Discharge Diagnosis: HEmaturia Referrals: [facility] [Outside] - 1 Week Maninder Fuller FNP- [Primary Care Provider] - 1 Week Discharge Medications: New famotidine 20 mg Tablet 20 mg PO DAILY Qty: 90 0RF ibuprofen 400 mg Tablet 400 mg PO TIDWM PRN (Reason: Pain, Moderate(Pain Scale 4-6)) Qty: 30 0RF lactulose 10 gram/15 mL solution 20 g PO BID Qty: 1200 0RF Rx Instructions: Hold for diarrhea. Continued (DME) patrick Herbert See Rx Instructions .Route Qty: 1 0RF Rx Instructions: Katarzyna nguyen lisinopril 10 mg tablet 10 mg PO DAILY Qty: 90 1RF finasteride 5 mg tablet 5 mg PO DAILY Qty: 90 1RF phenytoin sodium extended 100 mg capsule 100 mg PO BEDTIME Rx Instructions: TAKE 1 CAPSULE BY MOUTH EVERY MORNING AND 2 CAPSULES BY MOUTH EVERY NIGHT AT BEDTIME phenytoin sodium extended 100 mg capsule 200 mg PO DAILY Rx Instructions: TAKE 1 CAPSULE BY MOUTH EVERY MORNING AND 2 CAPSULES BY MOUTH EVERY NIGHT AT BEDTIME multivitamin Tablet 1 tab PO DAILY folic acid 1 mg tablet 1 mg PO DAILY tamsulosin 0.4 mg capsule 0.4 mg PO DAILY 90 Days Qty: 90 1RF Discharge Orders: Discharge Order (Routine); Ordered 11/02/24 Ordered By: Michelle Steiner Diet: Advance to usual diet Activity on Discharge: As tolerated Stand Alone Forms: Patient Portal Discharge page Print Language: Belarusian Care Plan Goals: Tylenol and Ibuprofen as needed for pain Famotidine for stomach protection while on Ibuprofen Follow with URology in office in 2 weeks No evidence of infection in your urine; no need for antibiotics Health Concerns: Hematuria; urine retention Plan of Treatment: James catheter replacement follow with Urology Assessment: as above
--- NOTE | 2024-11-02 11:08 | MHC.CM.PN ---
PT WILL DC HOME TODAY WITH [facility] VIA [facility] TO TRANSPORT
--- NOTE | 2024-11-02 11:20 | W.MHC.F2F ---
Service Date Service Date: 11/02/24 Encounter Date of encounter: 11/02/24 Reasons for Services Signs and symptoms assessed: physical deconditioning Garza catheter care Reason for penitentiary: medication management, teach disease management and GI/ assessment Reason for physical therapy: home safety and mobility and therapeutic exercises Homebound: Leaving the home is medically contraindicated at this time without the asist of a device and/or another person due th the listed conditions above and below. Reason homebound: unsteady gait / fall risk Certification: Based on the above findings, I certify that this patient is confined to the home and needs intermittent penitentiary care, physical therapy and/or speech therapy, or continues to need occupational therapy. The patient is under my care, and I have initiated the establishment of the plan of care. The patient will be followed by a physician who will periodically review the plan of care. Time Spent With Patient Time: Total time managing care of this patient today ____ minutes.
[2024-11-02 15:50] VITALS: BP 98/53; PULSE 64; RESP 18; TEMP 36.9; O2SAT 97
== END 2024-11-02 18:05 | disposition home health service (06) | DRG 699 ==
LOC: HO.ED 10-31 01:03 → HO.EDOVER 10-31 01:29 → HO.S3 10-31 19:31
PROVIDERS: Admitting Provider Internal Medicine; Emergency Provider Emergency Medicine; PCP Nurse Practitioner Family; Visit Provider Student in an Organized Health Care Education/Training Program
DX: T83.028A Displacement of other urinary catheter, initial encounter (principal); Q85.1 Tuberous sclerosis; Y73.8 Miscellaneous gastroenterology and urology devices associated with adverse incidents, not elsewhere classified; R31.0 Gross hematuria; G40.909 Epilepsy, unspecified, not intractable, without status epilepticus; I10 Essential (primary) hypertension; N40.1 Benign prostatic hyperplasia with lower urinary tract symptoms; R33.8 Other retention of urine; Z87.891 Personal history of nicotine dependence; Z79.899 Other long term (current) drug therapy
CPT/HCPCS: 36415; 74176; 80048; 80053; 81001; 83605; 85025; 87040; 87086; 97161; 97162; 99285; J0692

== ENCOUNTER → 2024-10-30 22:59 | Outpatient (BNV) | payer MEDICARE, SELFPAY | PROVIDERS: Emergency Provider Emergency Medicine; Visit Provider Radiology Neuroradiology | DX: N32.89 Other specified disorders of bladder (principal); K56.41 Fecal impaction; K76.89 Other specified diseases of liver | CPT/HCPCS: 74176 ==

== ENCOUNTER → 2024-10-31 01:26 | Outpatient (BNV) | payer MEDICARE, SELFPAY | PROVIDERS: Admitting Provider Internal Medicine; Emergency Provider Emergency Medicine; Visit Provider Internal Medicine | DX: R31.0 Gross hematuria (principal); N40.1 Benign prostatic hyperplasia with lower urinary tract symptoms; R33.8 Other retention of urine; R93.89 Abnormal findings on diagnostic imaging of other specified body structures | CPT/HCPCS: 99222; 99232; 99239; 99499; G0180 ==

== ENCOUNTER → 2024-10-31 01:26 | Outpatient (BNV) | payer MEDICARE, SELFPAY | PROVIDERS: Admitting Provider Internal Medicine; Emergency Provider Emergency Medicine; Visit Provider Urology | DX: T83.511A Infection and inflammatory reaction due to indwelling urethral catheter, initial encounter (principal); N39.0 Urinary tract infection, site not specified; N40.1 Benign prostatic hyperplasia with lower urinary tract symptoms; R33.8 Other retention of urine | CPT/HCPCS: 99024 ==

== ENCOUNTER → 2024-11-10 23:59 | Outpatient (BNV) | payer MEDICARE, SELFPAY | PROVIDERS: PCP Nurse Practitioner Family; Visit Provider Nurse Practitioner Family | DX: N40.0 Benign prostatic hyperplasia without lower urinary tract symptoms (principal); N39.0 Urinary tract infection, site not specified; I10 Essential (primary) hypertension | CPT/HCPCS: G0180 ==

== ENCOUNTER → 2024-11-16 11:26 | Outpatient (BNVA) | payer MEDICARE, SELFPAY | PROVIDERS: PCP Nurse Practitioner Family; Visit Provider Urology | DX: N40.1 Benign prostatic hyperplasia with lower urinary tract symptoms (principal) | CPT/HCPCS: 51700; 51798 ==

== ENCOUNTER 2024-11-24 14:13 | Outpatient (AMB) | payer MEDICARE, SELFPAY ==
--- NOTE | 2024-11-24 14:18 | MHC.OFFVIS ---
Intake Visit Reasons: Greenlight laser, follow up Intake Note: Patient is present for GREENLIGHT LASER F/U Urology MedicatioN: TAMSULOSIN,FINASTERIDE Antibiotic Allergy:NONE Blood Thinner:NONE TODAY'S PVR:25ML'S Terminal Makeup Operator Required: No Allergies No Known Allergies Allergy (Verified 11/24/24 14:19) HPI Comments Details: Nayan is a pleasant male. He is a patient of Dr. Kinney. He is seen for the following urologic conditions - renal cysts - prostate cancer? Had MRI/PET-CT done at [place] Known 100 g prostate Episode of urosepsis 03/26 Follow-up from GreenLight laser procedure 10/25 PVR 25 cc Pathology BPH tissue Urine culture today Three-month follow-up Continue finasteride Lower urinary tract symptoms Progressive urgency and frequency Has been placed on combination therapy Finasteride and tamsulosin Renal cyst Imaging with right renal cyst and 2 cm hyperdense cyst stable since 2006 Prostate cancer - grade group 2, low volume 03/14 - initially managed [facility] Urolog PSA - 06/22 1.8, 11/23 2.9 Had been followed at [facility] Urolog Imaging - 07/27 MRI 100 g prostate, no PI-RADS 4/5, 1.2 cm pelvic lymph node noted with [facility] Medical History Renal calculi BPH (benign prostatic hyperplasia) Prostate cancer Chronic radicular pain of lower back Lumbar disc disease Low vitamin B12 level Seizure HTN (hypertension) Tuberous sclerosis Surgical History H/O colonoscopy Family History (Updated 05/28/24 @ 14:57 by Pamela Peterson Krista) Father Colon cancer Mother Stomach cancer Breast cancer Social History Household Members: Family Housing: House Do you presently have visiting nurse or other home services: No Patient Tobacco Use Status: Former Tobacco user Years Smoked: quit 1987 e-Cigarette/Vaping Use: Never Used Second Hand Smoke Exposure: No service: No Current occupational status: retired Cognitive needs: No Hearing needs: No Vision needs: No Review of Systems Const Denies chills and Denies fever(s) Card Reports no additional complaints and Denies syncope Resp Denies cough GI Denies abdominal pain and Denies heartburn Reports as per HPI and Denies change in libido Neuro Denies syncope Psych Denies change in libido Endo Denies change in libido Physical Exam Const General: cooperative, healthy appearing, comfortable and no acute distress Orientation/consciousness: patient oriented x3 HEENT Face and sinus: Yes normal facial exam Mouth: moist mucous membranes Neck Neck: Yes normal visual inspection, Yes full ROM and Yes trachea midline Chest Chest palpation & inspection: normal inspection of the chest Resp Effort & Inspection: normal respiratory effort, able to speak in complete sentences and no respiratory distress GI Inspection: Yes normal to inspection Back/Spine/Pelvis Cervical Spine: normal cervical lordosis Thoracic/Lumbar Spine: thoracic and lumbar spine normal to inspection Skin General skin exam: no rashes or lesions noted Neuro General: patient oriented x3, gait normal, tone normal and moves all extremities Extrem General: Yes normal to inspection and Yes capillary refill normal Office Procedures Post Void Residual Post Residual Void Post Void Residual (PVR): 25 [id number] Void Residual by ultrasound Assessment & Plan Assessment & Plan (1) Prostate cancer: Code(s): C61 - Malignant neoplasm of prostate Category: Medical (2) BPH loc w urin obs/LUTS: Code(s): N40.1 - Benign prostatic hyperplasia with lower urinary tract symptoms Category: Medical Plan Three-month follow-up PVR and UA Orders: Orders AMB Urinalysis Automated Today Z13.9 - Encounter for screening, unspecified Urine Culture Today N39.0 - Urinary tract infection, site not specified Patient Instructions: This note is constructed using voice recognition software. While every effort has been made to ensure accuracy on air personality errors may have been included. Imaging studies, laboratory and physical exam results were discussed and reviewed in detail. No major barriers to patient understanding were identified. An opportunity to ask questions regarding the treatment plan was provided. All questions were answered. The patient expressed understanding and agreement with the above treatment plan. The patient is aware they should contact our office by phone for worsening of their current condition or the appearance of new urologic symptoms. Compliance is encouraged with any medications and followup testing that is ordered. It is a privilege to participate in the urologic care of your patient. If you have any questions or concerns regarding treatment for the above conditions, or other urologic issues, please do not hesitate to contact me. The office telephone contact is [phone]. Sincerely, Dr Zaheer Ramsey MD, JE[facility] - Urology Compassionate Specialist Care for the Genitourinary System Coding Level of Care Code Est Pt Level 3 (49330) Diagnoses Prostate cancer C61 BPH loc w urin obs/LUTS N40.1 CPT Codes Post Residual Void - PVR CPT Code: 13225-Cifh Void Residual by ultrasound ([id number])
--- OUTSIDE RECORDS SUMMARY | 2024-11-24 17:19 | XMS_ITS | Encounter Summary ---
Author Organization [employer] Address [address] [place] [address] Care Team Providers Care Personnel Counselor Name Role Phone Julito Spaulding MD Primary Care Provider +1- [phone] Encounter Details Date Type Department Care Team (Late st Contact Info) Description 04/06/2024 Lab Requisition [facility] - Main Lab [address] [place] [address] Julito Spaulding MD [address] [place] [address] Weakness; Anemia, unspecified Social History Tobacco Use [...] Travel phlebotomy fee (04/07/2024 8:35 AM EST) [facility] TRAVEL PHLEBOTOMY FEE Completed 04/07/2024 12:[address] [facility] Blood Venous blood specimen / Unknown Venipuncture / Unknown 04/07/2024 8:35 AM EST 04/07/2024 11:54 AM EST Julito Spaulding MD LAB BLOOD ORDERABLES Final Result [facility] [address] [place] [address], * (ABNORMAL) CBC auto differential (04/07/2024 8:35 AM EST) WBC 7.9 4.8 - 10.8 K/mcL LAB HEMETOLOGY METHOD 04/07/2024 12:32 PM [facility] RBC 3.90(L) 4.50 - 5.50 M/mcL LAB HEMETOLOGY METHOD 04/07/2024 12:32 PM [facility] Hemoglobin 12.1(L) 13.5 - 17.5 g/dL LAB HEMETOLOGY METHOD 04/07/2024 12:32 PM [facility] Hematocrit 36.4(L) 42.0 - 54.0 % LAB HEMETOLOGY METHOD 04/07/2024 12:32 PM [facility] MCV 93.1 79.0 - 98.0 FL LAB HEMETOLOGY METHOD 04/07/2024 12:32 PM [facility] MCH 30.9 27.0 - 32.0 pcg LAB HEMETOLOGY METHOD 04/07/2024 12:32 PM [facility] MCHC 33.2 32.0 - 37.0 g/dL LAB HEMETOLOGY METHOD 04/07/2024 12:32 PM [facility] RDW 12.5 11.0 - 15.0 % LAB HEMETOLOGY METHOD 04/07/2024 12:32 PM [facility] Platelets 330 130 - 400 K/mcL LAB HEMETOLOGY METHOD 04/07/2024 12:32 PM [facility] MPV 9.9 7.0 - 11.0 FL LAB HEMETOLOGY METHOD 04/07/2024 12:32 PM [facility] NRBC 0.0 <1.0 % LAB HEMETOLOGY METHOD 04/07/2024 12:32 PM [facility] NRBC Absolute 0.00 <0.10 K/mcL LAB HEMETOLOGY METHOD 04/07/2024 12:32 PM [facility] Neutrophils Relative 69.7 % LAB HEMETOLOGY METHOD 04/07/2024 12:32 PM [facility] Lymphocytes Relative 21.5 % LAB HEMETOLOGY METHOD 04/07/2024 12:32 PM [facility] Monocytes Relative 6.0 % LAB HEMETOLOGY METHOD 04/07/2024 12:32 PM [facility] Eosinophils Relative 1.8 % LAB HEMETOLOGY METHOD 04/07/2024 12:32 PM [facility] Basophils Relative 0.5 % LAB HEMETOLOGY METHOD 04/07/2024 12:32 PM [facility] Immature Granulocytes Relative 0.5 % LAB HEMETOLOGY METHOD 04/07/2024 12:32 PM [facility] Neutrophils Absolute 5.49 1.50 - 7.00 K/mcL LAB HEMETOLOGY METHOD 04/07/2024 12:32 PM [facility] Lymphocytes Absolute 1.69 1.00 - 5.00 K/mcL LAB HEMETOLOGY METHOD 04/07/2024 12:32 PM [facility] Monocytes Absolute 0.47 0.20 - 1.00 K/mcL LAB HEMETOLOGY METHOD 04/07/2024 12:32 PM [facility] Eosinophils Absolute 0.14 0.00 - 0.50 K/mcL LAB HEMETOLOGY METHOD 04/07/2024 12:32 PM EST [facility] Basophils Absolute 0.04 0.00 - 0.20 K/mcL LAB HEMETOLOGY METHOD 04/07/2024 12:32 PM EST [facility] Immature Granulocytes Absolute 0.04(H) 0.00 - 0.03 K/mcL LAB HEMETOLOGY METHOD 04/07/2024 12:32 PM [facility] Blood Venous blood specimen / Unknown Venipuncture / Unknown 04/07/2024 8:35 AM EST 04/07/2024 11:54 AM EST Julito Spaulding MD LAB BLOOD ORDERABLES Final Result [facility] [address] [place] [address], * Comprehensive metabolic panel (04/07/2024 8:35 AM EST) Sodium 139 133 - 145 mmol/L LAB CHEMISTRY METHOD 04/07/2024 2:50 PM [facility] Potassium 4.6 3.5 - 5.5 mmol/L LAB CHEMISTRY METHOD 04/07/2024 2:50 PM [facility] Chloride 108 96 - 110 mmol/L LAB CHEMISTRY METHOD 04/07/2024 2:50 PM [facility] CO2 26 21 - 32 mmol/L LAB CHEMISTRY METHOD 04/07/2024 2:50 PM [facility] Anion Gap 5 3 - 11 LAB CHEMISTRY METHOD 04/07/2024 2:50 PM [facility] Glucose 74 70 - 100 mg/dL LAB CHEMISTRY METHOD 04/07/2024 2:50 PM [facility] BUN 20 5 - 25 mg/dL LAB CHEMISTRY METHOD 04/07/2024 2:50 PM [facility] Creatinine 0.86 0.70 - 1.30 mg/dL LAB CHEMISTRY METHOD 04/07/2024 2:50 PM [facility] eGFR 94 >=60 mL/min/1. 73m2 LAB CHEMISTRY METHOD 04/07/2024 2:50 PM [facility] Comment:Calculation based on the Chronic Kidney Disease Epidemiology Collaboration (CKD-EPI) equation refit without adjustment for race. BUN/Creatinine Ratio 23.3 LAB CHEMISTRY METHOD 04/07/2024 2:50 PM [facility] Calcium 9.4 8.5 - 10.5 mg/dL LAB CHEMISTRY METHOD 04/07/2024 2:50 PM [facility] AST (SGOT) 18 10 - 42 unit/L LAB CHEMISTRY METHOD 04/07/2024 2:50 PM [facility] ALT (SGPT) 33 10 - 60 unit/L LAB CHEMISTRY METHOD 04/07/2024 2:50 PM [facility] Alkaline Phosphatase 118 42 - 121 unit/L LAB CHEMISTRY METHOD 04/07/2024 2:50 PM [facility] Total Protein 6.8 6.0 - 8.0 g/dL LAB CHEMISTRY METHOD 04/07/2024 2:50 PM [facility] Albumin 3.6 3.2 - 5.0 g/dL LAB CHEMISTRY METHOD 04/07/2024 2:50 PM [facility] Total Bilirubin 0.2 0.0 - 1.4 mg/dL LAB CHEMISTRY METHOD 04/07/2024 2:50 PM [facility] Blood Venous blood specimen / Unknown Venipuncture / Unknown 04/07/2024 8:35 AM EST 04/07/2024 11:54 AM EST Julito Spaulding MD LAB BLOOD ORDERABLES Final Result [facility] [address] [place] [address], documented in this encounter Visit Diagnoses Diagnosis Weakness Other malaise and fatigue Anemia, unspecified documented in this encounter Care Teams Personnel Counselor Relationship Specialty Start Date End Date Julito Spaulding MD [address] [place] [address] PCP - General Internal Medicine 04/06/24 documented as of this encounter
== END 2024-11-24 14:46 | disposition home or self-care (01) ==
LOC: HO.HUSH 14:14
PROVIDERS: PCP Nurse Practitioner Family; Visit Provider Urology
DX: C61 Malignant neoplasm of prostate (principal); N40.1 Benign prostatic hyperplasia with lower urinary tract symptoms; Z13.9 Encounter for screening, unspecified
CPT/HCPCS: 99024

== ENCOUNTER 2024-11-24 14:13 | Outpatient (REF) | payer MEDICARE, SELFPAY | END 2024-11-24 14:14 | disposition home or self-care (01) | LOC: HO.LAB 14:13 | PROVIDERS: PCP Nurse Practitioner Family; Visit Provider Urology | DX: C61 Malignant neoplasm of prostate (principal); N40.1 Benign prostatic hyperplasia with lower urinary tract symptoms; N39.0 Urinary tract infection, site not specified | CPT/HCPCS: 51798; 81003; 87086; 87088; 87186; 99212 ==

== ENCOUNTER 2025-02-24 14:07 | Outpatient (AMB) | payer MEDICARE, SELFPAY ==
--- NOTE | 2025-02-24 14:20 | MHC.OFFVIS ---
Intake Visit Reasons: 3m/pvr/UA Intake Note: Patient is present for 3 mo follow up Urology MedicatioN: TAMSULOSIN,FINASTERIDE Antibiotic Allergy:NONE Blood Thinner:NONE Interstate Planner Required: No Accompanied by: Self / Same As Patient Allergies No Known Allergies Allergy (Verified 02/24/25 14:21) HPI Comments Details: Nayan is a pleasant male. He is a patient of Dr. Kinney. He is seen for the following urologic conditions - renal cysts - prostate cancer? Has had some improvement in urination Good stream Waking 2 times at night Had MRI/PET-CT done at [place] Known 100 g prostate Episode of urosepsis 03/26 Repeat PSA in 4 months Continue finasteride May try stopping tamsulosin Lower urinary tract symptoms Progressive urgency and frequency Has been placed on combination therapy Finasteride and tamsulosin Renal cyst Imaging with right renal cyst and 2 cm hyperdense cyst stable since 2006 Prostate cancer - grade group 2, low volume 03/14 - initially managed [facility] Urolog PSA - 06/22 1.8, 11/23 2.9 Had been followed at [facility] Urolog Imaging - 07/27 MRI 100 g prostate, no PI-RADS 4/5, 1.2 cm pelvic lymph node noted with recommendation for PET-CT [facility] Medical History Renal calculi BPH (benign prostatic hyperplasia) Prostate cancer Chronic radicular pain of lower back Lumbar disc disease Low vitamin B12 level Seizure HTN (hypertension) Tuberous sclerosis Surgical History H/O colonoscopy Family History (Updated 05/28/24 @ 14:57 by Pamela Peterson [facility]) Father Colon cancer Mother Stomach cancer Breast cancer Social History Household Members: Family Housing: House Do you presently have visiting nurse or other home services: No Patient Tobacco Use Status: Former Tobacco user Years Smoked: quit 1987 e-Cigarette/Vaping Use: Never Used Second Hand Smoke Exposure: No service: No Current occupational status: retired Cognitive needs: No Hearing needs: No Vision needs: No Review of Systems Const Denies chills and Denies fever(s) Card Reports no additional complaints and Denies syncope Resp Denies cough GI Denies abdominal pain and Denies heartburn Reports as per HPI and Denies change in libido Neuro Denies syncope Psych Denies change in libido Endo Denies change in libido Physical Exam Const General: cooperative, healthy appearing, comfortable and no acute distress Orientation/consciousness: patient oriented x3 HEENT Face and sinus: Yes normal facial exam Mouth: moist mucous membranes Neck Neck: Yes normal visual inspection, Yes full ROM and Yes trachea midline Chest Chest palpation & inspection: normal inspection of the chest Resp Effort & Inspection: normal respiratory effort, able to speak in complete sentences and no respiratory distress GI Inspection: Yes normal to inspection Back/Spine/Pelvis Cervical Spine: normal cervical lordosis Thoracic/Lumbar Spine: thoracic and lumbar spine normal to inspection Skin General skin exam: no rashes or lesions noted Neuro General: patient oriented x3, gait normal, tone normal and moves all extremities Extrem General: Yes normal to inspection and Yes capillary refill normal Results AMB Urinalysis, Automated UA Leukoctes 0 Guerrero/uL Last Edit by Geraldine Conroy MA on 02/24/25 16:20 UA Nitrite Negative Last Edit by Geraldine Conroy MA on 02/24/25 16:20 UA Urobilinogen 3.5 mg/dL Last Edit by Geraldine Conroy MA on 02/24/25 16:20 UA Protein 15 mg/dL Last Edit by Geraldine Conroy MA on 02/24/25 16:20 UA pH 5.5 Last Edit by Geraldine Conroy MA on 02/24/25 16:20 UA Blood 10 Jose/uL Last Edit by Geraldine Conroy MA on 02/24/25 16:20 UA Specific [place] 1.020 Last Edit by Geraldine Conroy MA on 02/24/25 16:20 UA Ketone Negative Last Edit by Geraldine Conroy MA on 02/24/25 16:20 UA Bilirubin 0 mg/dL Last Edit by Geraldine Conroy MA on 02/24/25 16:20 UA Glucose 0 mg/dL Last Edit by Geraldine Conroy MA on 02/24/25 16:20 Results Reviewed Results Reviewed: Laboratory Last Values Urine pH (Auto) 5.5 02/24/25 15:44 Specific [place] (Auto) 1.020 02/24/25 15:44 Urine Protein (Auto) 15 mg/dL 02/24/25 15:44 Glucose (UA)(Auto) 0 mg/dL 02/24/25 15:44 Urine Ketones (Auto) Negative 02/24/25 15:44 Urine Blood (Auto) 10 Jose/uL 02/24/25 15:44 Urine Nitrite (Auto) Negative 02/24/25 15:44 Urine Bilirubin (Auto) 0 mg/dL 02/24/25 15:44 Urine Urobilinogen (Auto) 3.5 mg/dL 02/24/25 15:44 Leukocyte Esterase (Auto) 0 Guerrero/uL 02/24/25 15:44 Assessment & Plan Assessment & Plan (1) Prostate cancer: Code(s): C61 - Malignant neoplasm of prostate Category: Medical (2) BPH loc w urin obs/LUTS: Code(s): N40.1 - Benign prostatic hyperplasia with lower urinary tract symptoms Category: Medical Plan Four month follow-up PSA Orders: Orders AMB Urinalysis Automated 02/24/25 Z13.9 - Encounter for screening, unspecified Prostate Specific Antigen 4 Months C61 - Malignant neoplasm of prostate Medications: Refilled finasteride 5 mg PO DAILY 90 tabs 1RF C61 - Malignant neoplasm of prostate Patient Instructions: This note is constructed using voice recognition software. While every effort has been made to ensure accuracy workers compensation claims analyst errors may have been included. Imaging studies, laboratory and physical exam results were discussed and reviewed in detail. No major barriers to patient understanding were identified. An opportunity to ask questions regarding the treatment plan was provided. All questions were answered. The patient expressed understanding and agreement with the above treatment plan. The patient is aware they should contact our office by phone for worsening of their current condition or the appearance of new urologic symptoms. Compliance is encouraged with any medications and followup testing that is ordered. It is a privilege to participate in the urologic care of your patient. If you have any questions or concerns regarding treatment for the above conditions, or other urologic issues, please do not hesitate to contact me. The office telephone contact is [phone]. Sincerely, Dr Zaheer Ramsey MD, JE[facility] - Urology Compassionate Specialist Care for the Genitourinary System Coding Level of Care Code Est Pt Level 3 (59172) Complex EM visit Add On G2211 Diagnoses Prostate cancer C61 BPH loc w urin obs/LUTS N40.1
--- OUTSIDE RECORDS SUMMARY | 2025-02-24 16:48 | XMS_ITS | Patient Health Record ---
Author Organization [facility] Address [address] [place] [address] Care Team Providers Care Drafter Electronic Name Role Phone Vaughn Cifuentes MD Primary Care Provider Trisha Vallecillo Unavailable [phone] Reason For Referral No Information Medications Medication SIG (Take, Route, Frequency, Duration) Notes Start Date End Date Status Finasteride Active Phenytoin 100 mg Orally Three times a day Active Complex B-100 Active Folic Acid Active vitamin Active Lisinopril & Diet Manage Prod Active Problems Problem Type SNOMED Code ICD Code Onset Dates Problem Status W/U Status Risk Notes Problem Neurofibromatos is, 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, 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 (41010081143911 102) Congenital pes planus, right foot (Q66.51) Active confirmed Problem Congenital pes planus of left foot ([id number] 103) Congenital pes planus, left foot (Q66.52) Active confirmed Plan Of Treatment No Information Insurance Providers Payer Name Payer Address Payer Phone Subscriber Number Group Number Insured Name Patient Relationship to Insured Coverage Start Date Coverage End Date Medicare National [employer]t [employer] [address] [place] [id number] Nayan Aly Self - patient is the insured do not use [address] [address] [id number] Nayan Aly Self - patient is the insured Medical (General) History Medical History History ICD Code Neurofibromatosis 1 mumps measles chicken pox hypertension epilepsy Back,Hip,and Knee pain Seizures Surgical History Surgery Date(Month/Year) ankle surgery 2002 leg surgery 2002 fibroid removal 2010
--- OUTSIDE RECORDS SUMMARY | 2025-02-24 16:48 | XMS_ITS | Clinical Summary ---
Author Organization [address] [facility] Address [address] [place] [address] Phone Care Team Providers Care Rotary Drier Operator Name Role Phone Julito Spaulding MD Primary Care Provider +1- [phone] Social History Tobacco Use Types Packs/Day Years [...] 2004 Zoster Vaccines (1 of 2) 2004 Abdominal Aortic Aneurysm (A AA) Screen 04/07/2024 Cholesterol Screening (Lipid Panel) 04/07/2024 Colorectal Cancer Screening: Colonoscopy 04/07/2024 Falls Risk Assessment 04/07/2024 Hepatitis C Screening 04/07/2024 Medicare Annual Wellness Visit 04/07/2024 Social Influencers of Health Screening 04/07/2024 Depression Screening 06/03/2024 COVID-19 Vaccine ( - 2023-2 5 season) 2025 Influenza Vaccine (#1) 2025 RSV Immunization Adult Patie nts (1 [...] topic Insurance [employer] MEDICARE ADVANTAGE Care Teams Rotary Drier Operator Relationship Specialty Start Date End Date Julito Spaulding MD [address] [place] [address] PCP - General Internal Medicine 04/06/24
--- OUTSIDE RECORDS SUMMARY | 2025-02-24 16:48 | XMS_ITS | Encounter Summary ---
Author Organization [employer] Address [address] [place] [address] Care Team Providers Care Wastewater Project Manager Name Role Phone Julito Spaulding MD Primary Care Provider +1- [phone] Encounter Details Date Type Department Care Team (Late st Contact Info) Description 04/14/2024 Lab Requisition [facility] - Main Lab [address] [facility] [place] [address] Julito Spaulding MD [address] [place], [place] [id number] Weakness; Anemia, unspecified Social History Tobacco Use [...] unspecified documented in this encounter Care Teams Wastewater Project Manager Relationship Specialty Start Date End Date Julito Spaulding MD [address] [place] [id number] PCP - General Internal Medicine 04/06/24 documented as of this encounter
--- OUTSIDE RECORDS SUMMARY | 2025-02-24 16:48 | XMS_ITS | Patient Health Record ---
Author Organization [facility] Address [address] [place] [address] Care Team Providers Care Family Services Worker Name Role Phone THEO VAZQUEZ Primary Care Provider Ayden hCavis Unavailable [phone] Raymundo Holley Unavailable Unavailable Reason For Referral No Information Plan Of Treatment No Information Insurance Providers Payer Name Payer Address Payer Phone Subscriber Number Group Number Insured Name Patient Relationship to Insured Coverage Start Date Coverage End Date AARP MEDI COMP (REFERR AL REQUIRE D) [address] [address] [place] [address] [id number] JR SEE AGUILAR Self - patient is the insured
--- OUTSIDE RECORDS SUMMARY | 2025-02-24 16:48 | XMS_ITS | Encounter Summary ---
Author Organization [employer] Address [address] [place] [address] Care Team Providers Care Refrigeration Operator Name Role Phone Julito Spaulding MD Primary Care Provider +1- [phone] Encounter Details Date Type Department Care Team (Late st Contact Info) Description 04/06/2024 Lab Requisition [facility] - Main Lab [address] [place] [address] Julito Spaulding MD [address] [place] [address] Weakness; Anemia, unspecified Social History Tobacco Use [...] Travel phlebotomy fee (04/07/2024 8:35 AM EST) [facility] TRAVEL PHLEBOTOMY FEE Completed 04/07/2024 12:01 PM EST [facility] Blood Venous blood specimen / Unknown Venipuncture / Unknown 04/07/2024 8:35 AM EST 04/07/2024 11:54 AM EST Julito Spaulding MD LAB BLOOD ORDERABLES Final Result [facility] [address] [place] [address], * (ABNORMAL) CBC auto differential (04/07/2024 8:35 AM EST) WBC 7.9 4.8 - 10.8 K/mcL LAB HEMETOLOGY METHOD 04/07/2024 12:32 PM [facility] RBC 3.90(L) 4.50 - 5.50 M/mcL LAB HEMETOLOGY METHOD 04/07/2024 12:32 PM [facility] Hemoglobin 12.1(L) 13.5 - 17.5 g/dL LAB HEMETOLOGY METHOD 04/07/2024 12:32 PM [facility] Hematocrit 36.4(L) 42.0 - 54.0 % LAB HEMETOLOGY METHOD 04/07/2024 12:32 PM [facility] MCV 93.1 79.0 - 98.0 FL LAB HEMETOLOGY METHOD 04/07/2024 12:32 PM [facility] MCH 30.9 27.0 - 32.0 pcg LAB HEMETOLOGY METHOD 04/07/2024 12:32 PM [facility] MCHC 33.2 32.0 - 37.0 g/dL LAB HEMETOLOGY METHOD 04/07/2024 12:32 PM [facility] RDW 12.5 11.0 - 15.0 % LAB HEMETOLOGY METHOD 04/07/2024 12:32 PM [facility] Platelets 330 130 - 400 K/mcL LAB HEMETOLOGY METHOD 04/07/2024 12:32 PM [facility] MPV 9.9 7.0 - 11.0 FL LAB HEMETOLOGY METHOD 04/07/2024 12:32 PM [facility] NRBC 0.0 <1.0 % LAB HEMETOLOGY METHOD 04/07/2024 12:32 PM [facility] NRBC Absolute 0.00 <0.10 K/mcL LAB HEMETOLOGY METHOD 04/07/2024 12:32 PM [facility] Neutrophils Relative 69.7 % LAB HEMETOLOGY METHOD 04/07/2024 12:32 PM [facility] Lymphocytes Relative 21.5 % LAB HEMETOLOGY METHOD 04/07/2024 12:32 PM [facility] Monocytes Relative 6.0 % LAB HEMETOLOGY METHOD 04/07/2024 12:32 PM [facility] Eosinophils Relative 1.8 % LAB HEMETOLOGY METHOD 04/07/2024 12:32 PM [facility] Basophils Relative 0.5 % LAB HEMETOLOGY METHOD 04/07/2024 12:32 PM [facility] Immature Granulocytes Relative 0.5 % LAB HEMETOLOGY METHOD 04/07/2024 12:32 PM [facility] Neutrophils Absolute 5.49 1.50 - 7.00 K/mcL LAB HEMETOLOGY METHOD 04/07/2024 12:32 PM [facility] Lymphocytes Absolute 1.69 1.00 - 5.00 K/mcL LAB HEMETOLOGY METHOD 04/07/2024 12:32 PM [facility] Monocytes Absolute 0.47 0.20 - 1.00 K/mcL LAB HEMETOLOGY METHOD 04/07/2024 12:32 PM [facility] Eosinophils Absolute 0.14 0.00 - 0.50 K/mcL LAB HEMETOLOGY METHOD 04/07/2024 12:32 PM EST [facility] Basophils Absolute 0.04 0.00 - 0.20 K/mcL LAB HEMETOLOGY METHOD 04/07/2024 12:32 PM EST [facility] Immature Granulocytes Absolute 0.04(H) 0.00 - 0.03 K/mcL LAB HEMETOLOGY METHOD 04/07/2024 12:32 PM [facility] Blood Venous blood specimen / Unknown Venipuncture / Unknown 04/07/2024 8:35 AM EST 04/07/2024 11:54 AM EST Julito Spaulding MD LAB BLOOD ORDERABLES Final Result [facility] [address] [place] [address], * Comprehensive metabolic panel (04/07/2024 8:35 AM EST) Sodium 139 133 - 145 mmol/L LAB CHEMISTRY METHOD 04/07/2024 2:50 PM [facility] Potassium 4.6 3.5 - 5.5 mmol/L LAB CHEMISTRY METHOD 04/07/2024 2:50 PM [facility] Chloride 108 96 - 110 mmol/L LAB CHEMISTRY METHOD 04/07/2024 2:50 PM [facility] CO2 26 21 - 32 mmol/L LAB CHEMISTRY METHOD 04/07/2024 2:50 PM [facility] Anion Gap 5 3 - 11 LAB CHEMISTRY METHOD 04/07/2024 2:50 PM [facility] Glucose 74 70 - 100 mg/dL LAB CHEMISTRY METHOD 04/07/2024 2:50 PM [facility] BUN 20 5 - 25 mg/dL LAB CHEMISTRY METHOD 04/07/2024 2:50 PM [facility] Creatinine 0.86 0.70 - 1.30 mg/dL LAB CHEMISTRY METHOD 04/07/2024 2:50 PM [facility] eGFR 94 >=60 mL/min/1. 73m2 LAB CHEMISTRY METHOD 04/07/2024 2:50 PM [facility] Comment:Calculation based on the Chronic Kidney Disease Epidemiology Collaboration (CKD-EPI) equation refit without adjustment for race. BUN/Creatinine Ratio 23.3 LAB CHEMISTRY METHOD 04/07/2024 2:50 PM [facility] Calcium 9.4 8.5 - 10.5 mg/dL LAB CHEMISTRY METHOD 04/07/2024 2:50 PM [facility] AST (SGOT) 18 10 - 42 unit/L LAB CHEMISTRY METHOD 04/07/2024 2:50 PM [facility] ALT (SGPT) 33 10 - 60 unit/L LAB CHEMISTRY METHOD 04/07/2024 2:50 PM [facility] Alkaline Phosphatase 118 42 - 121 unit/L LAB CHEMISTRY METHOD 04/07/2024 2:50 PM [facility] Total Protein 6.8 6.0 - 8.0 g/dL LAB CHEMISTRY METHOD 04/07/2024 2:50 PM [facility] Albumin 3.6 3.2 - 5.0 g/dL LAB CHEMISTRY METHOD 04/07/2024 2:50 PM [facility] Total Bilirubin 0.2 0.0 - 1.4 mg/dL LAB CHEMISTRY METHOD 04/07/2024 2:50 PM [facility] Blood Venous blood specimen / Unknown Venipuncture / Unknown 04/07/2024 8:35 AM EST 04/07/2024 11:54 AM EST Julito Spaulding MD LAB BLOOD ORDERABLES Final Result [facility] [address] [place] [address], documented in this encounter Visit Diagnoses Diagnosis Weakness Other malaise and fatigue Anemia, unspecified documented in this encounter Care Teams Refrigeration Operator Relationship Specialty Start Date End Date Julito Spaulding MD [address] [place] [address] PCP - General Internal Medicine 04/06/24 documented as of this encounter
== END 2025-02-24 16:39 | disposition home or self-care (01) ==
LOC: HO.HUSH 14:07
PROVIDERS: PCP Nurse Practitioner Family; Visit Provider Urology
DX: Z13.9 Encounter for screening, unspecified (principal)

== ENCOUNTER → 2025-02-24 14:07 | Outpatient (BNVA) | payer MEDICARE, SELFPAY | PROVIDERS: PCP Nurse Practitioner Family; Visit Provider Urology | DX: N40.1 Benign prostatic hyperplasia with lower urinary tract symptoms (principal); N13.8 Other obstructive and reflux uropathy; C61 Malignant neoplasm of prostate; N28.1 Cyst of kidney, acquired; Z13.9 Encounter for screening, unspecified | CPT/HCPCS: 81003; 99212 ==

== ENCOUNTER 2025-05-12 12:49 | Outpatient (AMB) | payer MEDICARE, SELFPAY ==
--- NOTE | 2025-05-12 12:59 | MHC.PC.OV ---
Vital Signs 05/12/25 13:00 Height 5 ft 10 in Weight 164 lb BMI 23.5 BP 120/70 Blood Pressure Location Rt brachial Position Sitting Respiration 17 Pulse 76 Pulse Source Pulse Oximeter Temp 98.6 F Temp Source Oral Pulse Oximetry (%) 98 Oxygen Delivery Method Room Air Intake Visit Reasons: follow up Intake Note: Pt is here today for a HDF. Allergies No Known Allergies Allergy (Verified 05/12/25 13:02) Medication List - Last Reconciled 05/12/25 by LIS Gutiérrez- famotidine 20 mg PO DAILY finasteride 5 mg PO DAILY folic acid 1 mg PO DAILY ibuprofen 400 mg PO TIDWM PRN lactulose 20 grams (30 mL) PO BID lisinopril 10 mg PO DAILY multivitamin 1 tab PO DAILY phenytoin sodium extended 100 mg orally 1 cap in AM and 2 cap at bedtime; 90 days tamsulosin 0.4 mg PO DAILY 90 days walker Wheeled walker Tobacco use date assessed: 05/12/25 Fall risk assessment: 2 + Falls in past year Last assessed Fall Risk: 05/12/25 Dental Screening Dental Screen Date: 05/12/25 Did you have a dental visit in the last 12 months?: No Did you have a dental problem in the last 6 months where you did not have access to dental care?: No Was dental information given to patient?: Patient declined HPI follow up HPI Details Chief Complaint The patient presents for a follow-up visit after a hospital discharge. History of Present Illness The patient is a 69 year old male presenting for follow-up after a hospital discharge. He was originally seen in the emergency department for hematuria and has followed up with his urologist for this issue. He denies any current hematuria. He has a history of tuberous sclerosis. He reports a weak gait and uses a walker. He was previously under the care of a neurologist and is scheduled for a follow-up with a new neurologist. He was going to PT, which he reported helped, but it was too costly, so he stopped. Social History - Functional Status: The patient uses a walker for ambulation. Health Maintenance Review of Systems - Genitourinary: Denies current hematuria. Physical Exam General: Cooperative, healthy appearing, comfortable, no acute distress and well developed Orientation: Patient oriented x3 Limitations: No limitations Head: Normal to inspection Ears: Cerumen noted bilaterally, left greater than right. Cannot see the TM on the left. Nose: Normal external nose present Face and sinus: Normal facial exam Eyes: Appearance normal, both eyes and all related structures Neck: Normal visual inspection and Yes full ROM Respiratory: Normal respiratory effort and able to speak in complete sentences. Clear to auscultation bilaterally Cardiovascular: Regular rate and rhythm. Normal S1 and S2 GI: Normal to inspection. Soft to palpation and nontender Skin: Seborrheic keratosis lesions noted + macular and papillary throughout the entire upper torso and scalp Neuro: Patient oriented x3, weak gait, uses a walker Extremities: Normal to inspection Results Plan 1. Hematuria No plan was initiated during this visit for the hematuria, as the patient will be following up with his urologist for this issue. 2. Bilateral Cerumen Impaction Bilateral cerumen was noted, more significant on the left where the tympanic membrane was not visible. 3. Gait Abnormality The patient will follow up with neurology for his weak gait. 4. Seborrheic Keratosis A referral will be made to dermatology for a full workup of his skin lesions. Discussion Notes I discussed that the patient will see his urologist for the previously evaluated hematuria. I noted bilateral cerumen impaction and informed him of the finding. We discussed his weak gait and that he will follow up with neurology as planned. I informed him about the presence of multiple seborrheic keratosis lesions and recommended a referral to dermatology for a complete evaluation. Patient Instructions - Follow up with your urologist to discuss your previous visit for blood in your urine. - You have an upcoming appointment with a neurologist to discuss your weak gait. - You will be referred to a skin doctor (carrot harvester) for a full check-up of the spots on your upper body and scalp. [facility] Medical History Urinary retention due to benign prostatic hyperplasia Renal calculi BPH (benign prostatic hyperplasia) Prostate cancer Chronic radicular pain of lower back Lumbar disc disease Low vitamin B12 level Seizure HTN (hypertension) Tuberous sclerosis Surgical History H/O colonoscopy Family History Father Colon cancer Mother Stomach cancer Breast cancer Social History Household Members: Family Housing: House Do you presently have visiting nurse or other home services: No Patient Tobacco Use Status: Former Tobacco user Years Smoked: quit 1987 e-Cigarette/Vaping Use: Never Used Second Hand Smoke Exposure: No service: No Current occupational status: retired Cognitive needs: No Hearing needs: No Vision needs: No Questionnaire PHQ-9 Over the last 2 weeks, how often have you been bothered by any of the following problems? 1. Little interest or pleasure in doing things: more than half the days 2. Feeling down, depressed, or hopeless: more than half the days 3. Trouble falling or staying asleep, or sleeping too much: more than half the days 4. Feeling tired or having little energy: more than half the days 5. Poor appetite or overeating: several days 6. Feeling bad about yourself - or that you are a failure or have let yourself or your family down: several days 7. Trouble concentrating on things, such as reading the newspaper or watching television: not at all 8. Moving or speaking so slowly that other people could have noticed. Or the opposite - being so fidgety or restless that you have been moving around a lot more than usual: not at all 9. Thoughts that you would be better off or of hurting yourself in some way: not at all Total score: 10 Depression Screening Interpretation: Positive (denies any si or hi) Depression Screening Follow-up: Existing condition and Declines treatment Depression Screening Done: Yes 38776 - PHQ-9 Billing: Yes Source: Developed by Drs. Ayden Terry, Praveena Broderick, Alexei Tinsley and colleagues, with an educational wilfrido from [employer]. Thrive Questionnaire Date Thrive assessed: 05/12/25 I am a: Patient What is your living situation today?: I do not have a steady places to live I am temporarily staying with others Within the past 12 months, did the food you bought not last and you didn't have the money to get more?: Sometimes True Within the past 12 months, did you worry whether your food would run out before you got money to buy more?: Sometimes True Do you have trouble paying for medicines?: No Do you have trouble getting transportation to medical appointments?: No Do you have trouble paying your heating and electricity bill?: I choose not to answer this question Do you have trouble taking care of your child, family member or friend?: I choose not to answer this question Do you have trouble with day-to-day activities such as bathing, preparing meals, shopping, managing finances, etc.?: No Are you currently unemployed and looking for a job?: No Are you interested in more education?: No Please select the resources that you would like help with: Housing/Custodial, Food, Utilities, Care for elder or disabled and Daily support Currently or been in a relationship where the following occur: I choose not to answer THRIVE Score: 3 AUDIT C Alcohol Use Questionnaire (AUDIT-C) 1. How often do you have a drink containing alcohol?: Never 3. How often do you have six or more drinks on one occasion?: Never Total Score: 0 LIVE-7 AMB Questionnaire LIVE-7 Date LIVE - 7 assessed: 05/12/25 Feeling nervous, anxious, or on edge: 3 = Nearly every day Not being able to stop or control worryin = Nearly every day Worrying too much about different things: 1 = Several days Trouble relaxin = Not at all Being so restless that it is hard to sit still: 0 = Not at all Becoming easily annoyed or irritable: 2 = More than half the days Feeling afraid as if something awful might happen: 2 = More than half the days Total LIVE-7 score (0-4 normal; 5-9 mild; 10-14 moderate; 15-21 severe): 11 Source: Developed by Drs. Ayden Terry, Praveena Broderick, Alexei Tinsley and colleagues, with an educational wilfrido from [employer]. LIVE-7 Assessment Billing LIVE-7 Assessment Tool: LIVE-7 Assessment 64657 (denies any si or hi, declines treatment) Physical exam (Primary Care) Vital Signs: Last Vital Signs Temp 98.6 F 05/12/25 13:00 Pulse 76 05/12/25 13:00 Resp 17 05/12/25 13:00 BP 120/70 05/12/25 13:00 Pulse Ox 98 05/12/25 13:00 Oxygen Delivery Method Room Air 12/10/25 13:00 BMI result Body Mass Index 23.5 Tobacco/Smoking Status: Tobacco use Status Tobacco use date assessed 05/12/25 05/12/25 13:06 Patient Tobacco Use Status Former Tobacco user 05/12/25 13:06 e-Cigarette/Vaping Use Never Used 05/12/25 13:06 PHQ-9: PHQ-9 Score PHQ-9: Total score 10 05/12/25 13:06 Depression Screening Interpretation: Positive (denies any si or hi) Depression Screening Follow-up: Existing condition and Declines treatment Thrive Assessment: Date of Thrive Assessment Date Thrive assessed 05/12/25 05/12/25 13:06 Currently or been in a relationship where the following occur: I choose not to answer Office Procedures Cerumen Removal From which ear canal was the cerumen removed: bilateral Removal: irrigation Notes: patient tolerated procedure well, no complications and ear canal clear 41720-[id number] Irrigation/Lavage Coding Level of Care Code Est Pt Level 3 (05245) Diagnoses Hematuria R31.9 Excessive cerumen in both ear canals H61.23 CPT Codes Office Procedure - CPT: 12471-Nuk Irrigation/Lavage ([id number]) Additional Codes PHQ-9 - 68429 - PHQ-9 Billing: Yes ([id number]) LIVE-7 Assessment Billing - LIVE-7 Assessment Tool: LIVE-7 Assessment 68796 ([id number]) Assessment & Plan Assessment & Plan (1) Hematuria: Code(s): R31.9 - Hematuria, unspecified Category: Medical (2) Excessive cerumen in both ear canals: Code(s): H61.23 - Impacted cerumen, bilateral Category: Medical Plan .
[2025-05-12 13:00] VITALS: BP 120/70; PULSE 76; RESP 17; TEMP 37; O2SAT 98; BMI 23.5
--- OUTSIDE RECORDS SUMMARY | 2025-05-12 19:42 | XMS_ITS | Encounter Summary ---
Author Organization [employer] Address [address] [place] [address] Care Team Providers Care Flexographic Printing Machinist Name Role Phone Julito Spaulding MD Primary Care Provider +1- [phone] Encounter Details Date Type Department Care Team (Late st Contact Info) Description 04/06/2024 Lab Requisition [facility] - Main Lab [address] [place] [address] Julito Spaulding MD [address] [place] [address] Weakness; Anemia, unspecified Social History Tobacco Use [...] Travel phlebotomy fee (04/07/2024 8:35 AM EST) [facility] TRAVEL PHLEBOTOMY FEE Completed 04/07/2024 12:01 PM EST [facility] Blood Venous blood specimen / Unknown Venipuncture / Unknown 04/07/2024 8:35 AM EST 04/07/2024 11:54 AM EST Julito Spaulding MD LAB BLOOD ORDERABLES Final Result [facility] [address] [place] [address], * (ABNORMAL) CBC auto differential (04/07/2024 8:35 AM EST) WBC 7.9 4.8 - 10.8 K/mcL LAB HEMETOLOGY METHOD 04/07/2024 12:32 PM [facility] RBC 3.90(L) 4.50 - 5.50 M/mcL LAB HEMETOLOGY METHOD 04/07/2024 12:32 PM [facility] Hemoglobin 12.1(L) 13.5 - 17.5 g/dL LAB HEMETOLOGY METHOD 04/07/2024 12:32 PM [facility] Hematocrit 36.4(L) 42.0 - 54.0 % LAB HEMETOLOGY METHOD 04/07/2024 12:32 PM [facility] MCV 93.1 79.0 - 98.0 FL LAB HEMETOLOGY METHOD 04/07/2024 12:32 PM [facility] MCH 30.9 27.0 - 32.0 pcg LAB HEMETOLOGY METHOD 04/07/2024 12:32 PM [facility] MCHC 33.2 32.0 - 37.0 g/dL LAB HEMETOLOGY METHOD 04/07/2024 12:32 PM [facility] RDW 12.5 11.0 - 15.0 % LAB HEMETOLOGY METHOD 04/07/2024 12:32 PM [facility] Platelets 330 130 - 400 K/mcL LAB HEMETOLOGY METHOD 04/07/2024 12:32 PM [facility] MPV 9.9 7.0 - 11.0 FL LAB HEMETOLOGY METHOD 04/07/2024 12:32 PM [facility] NRBC 0.0 <1.0 % LAB HEMETOLOGY METHOD 04/07/2024 12:32 PM [facility] NRBC Absolute 0.00 <0.10 K/mcL LAB HEMETOLOGY METHOD 04/07/2024 12:32 PM [facility] Neutrophils Relative 69.7 % LAB HEMETOLOGY METHOD 04/07/2024 12:32 PM [facility] Lymphocytes Relative 21.5 % LAB HEMETOLOGY METHOD 04/07/2024 12:32 PM [facility] Monocytes Relative 6.0 % LAB HEMETOLOGY METHOD 04/07/2024 12:32 PM [facility] Eosinophils Relative 1.8 % LAB HEMETOLOGY METHOD 04/07/2024 12:32 PM [facility] Basophils Relative 0.5 % LAB HEMETOLOGY METHOD 04/07/2024 12:32 PM [facility] Immature Granulocytes Relative 0.5 % LAB HEMETOLOGY METHOD 04/07/2024 12:32 PM [facility] Neutrophils Absolute 5.49 1.50 - 7.00 K/mcL LAB HEMETOLOGY METHOD 04/07/2024 12:32 PM [facility] Lymphocytes Absolute 1.69 1.00 - 5.00 K/mcL LAB HEMETOLOGY METHOD 04/07/2024 12:32 PM [facility] Monocytes Absolute 0.47 0.20 - 1.00 K/mcL LAB HEMETOLOGY METHOD 04/07/2024 12:32 PM [facility] Eosinophils Absolute 0.14 0.00 - 0.50 K/mcL LAB HEMETOLOGY METHOD 04/07/2024 12:32 PM EST [facility] Basophils Absolute 0.04 0.00 - 0.20 K/mcL LAB HEMETOLOGY METHOD 04/07/2024 12:32 PM EST [facility] Immature Granulocytes Absolute 0.04(H) 0.00 - 0.03 K/mcL LAB HEMETOLOGY METHOD 04/07/2024 12:32 PM [facility] Blood Venous blood specimen / Unknown Venipuncture / Unknown 04/07/2024 8:35 AM EST 04/07/2024 11:54 AM EST Julito Spaulding MD LAB BLOOD ORDERABLES Final Result [facility] [address] [place] [address], * Comprehensive metabolic panel (04/07/2024 8:35 AM EST) Sodium 139 133 - 145 mmol/L LAB CHEMISTRY METHOD 04/07/2024 2:50 PM [facility] Potassium 4.6 3.5 - 5.5 mmol/L LAB CHEMISTRY METHOD 04/07/2024 2:50 PM [facility] Chloride 108 96 - 110 mmol/L LAB CHEMISTRY METHOD 04/07/2024 2:50 PM [facility] CO2 26 21 - 32 mmol/L LAB CHEMISTRY METHOD 04/07/2024 2:50 PM [facility] Anion Gap 5 3 - 11 LAB CHEMISTRY METHOD 04/07/2024 2:50 PM [facility] Glucose 74 70 - 100 mg/dL LAB CHEMISTRY METHOD 04/07/2024 2:50 PM [facility] BUN 20 5 - 25 mg/dL LAB CHEMISTRY METHOD 04/07/2024 2:50 PM [facility] Creatinine 0.86 0.70 - 1.30 mg/dL LAB CHEMISTRY METHOD 04/07/2024 2:50 PM [facility] eGFR 94 >=60 mL/min/1. 73m2 LAB CHEMISTRY METHOD 04/07/2024 2:50 PM [facility] Comment:Calculation based on the Chronic Kidney Disease Epidemiology Collaboration (CKD-EPI) equation refit without adjustment for race. BUN/Creatinine Ratio 23.3 LAB CHEMISTRY METHOD 04/07/2024 2:50 PM [facility] Calcium 9.4 8.5 - 10.5 mg/dL LAB CHEMISTRY METHOD 04/07/2024 2:50 PM [facility] AST (SGOT) 18 10 - 42 unit/L LAB CHEMISTRY METHOD 04/07/2024 2:50 PM [facility] ALT (SGPT) 33 10 - 60 unit/L LAB CHEMISTRY METHOD 04/07/2024 2:50 PM [facility] Alkaline Phosphatase 118 42 - 121 unit/L LAB CHEMISTRY METHOD 04/07/2024 2:50 PM [facility] Total Protein 6.8 6.0 - 8.0 g/dL LAB CHEMISTRY METHOD 04/07/2024 2:50 PM [facility] Albumin 3.6 3.2 - 5.0 g/dL LAB CHEMISTRY METHOD 04/07/2024 2:50 PM [facility] Total Bilirubin 0.2 0.0 - 1.4 mg/dL LAB CHEMISTRY METHOD 04/07/2024 2:50 PM [facility] Blood Venous blood specimen / Unknown Venipuncture / Unknown 04/07/2024 8:35 AM EST 04/07/2024 11:54 AM EST Julito Spaulding MD LAB BLOOD ORDERABLES Final Result [facility] [address] [place] [address], documented in this encounter Visit Diagnoses Diagnosis Weakness Other malaise and fatigue Anemia, unspecified documented in this encounter Care Teams Flexographic Printing Machinist Relationship Specialty Start Date End Date Julito Spaulding MD [address] [place] [address] PCP - General Internal Medicine 04/06/24 documented as of this encounter
--- OUTSIDE RECORDS SUMMARY | 2025-05-12 19:43 | XMS_ITS | Clinical Summary ---
Author Organization [address] [facility] Address [address] [place] [address] Phone Care Team Providers Care Bark Press Operator Name Role Phone Julito Spaulding MD Primary Care Provider +1- [phone] Social History Tobacco Use Types Packs/Day Years Used Date Smoking Tobacco: Never Assessed Sex and Gender Information Value Date Recorded Sex Assigned at Not on file Legal Sex Male 4:12 PM EST Gender Identity Not on file Sexual Orientation Not on file Plan of Treatment Health Maintenance Due Date Last Done Comments Colorectal Cancer Screening: Colonoscopy 1954 DTaP,Tdap,and Td Vaccines (1 - Tdap) 1973 Pneumococcal Vaccine: 50+ Ye ars (1 of 1 - PCV) 2004 Zoster Vaccines (1 of 2) 2004 Abdominal Aortic Aneurysm (A AA) Screen 04/07/2024 Cholesterol Screening (Lipid Panel) 04/07/2024 Falls Risk Assessment 04/07/2024 Hepatitis C Screening 04/07/2024 Medicare Annual Wellness Visit 04/07/2024 Social Influencers of Health Screening 04/07/2024 Depression Screening 06/03/2024 COVID-19 Vaccine ( - 2024-2 6 season) 2025 Influenza Vaccine (#1) 2025 RSV [...] topic Insurance [employer] MEDICARE ADVANTAGE Care Teams Bark Press Operator Relationship Specialty Start Date End Date Julito Spaulding MD [address] [place] [address] PCP - General Internal Medicine 04/06/24
--- OUTSIDE RECORDS SUMMARY | 2025-05-12 19:43 | XMS_ITS | Encounter Summary ---
Author Organization [facility] Address [address] [place] [address] Care Team Providers Care Container Washer Name Role Phone Julito Spaulding MD Primary Care Provider [phone] Encounter Details Date Type Department Care Team (Late st Contact Info) Description 04/14/[address] [facility] - Main Lab [address] [facility] [place] [address] Julito Spaulding MD [address] [place], [place] [id number] Weakness; Anemia, unspecified Social History Tobacco Use [...] unspecified documented in this encounter Care Teams Container Washer Relationship Specialty Start Date End Date Julito Spaulding MD [address] [place] [id number] PCP - General Internal Medicine 04/06/24 documented as of this encounter
--- OUTSIDE RECORDS SUMMARY | 2025-05-12 19:43 | XMS_ITS | Patient Health Record ---
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 Role Phone Vaughn Cifuentes MD Primary Care Provider Trisha Vallecillo Unavailable [phone] Reason For Referral No Information Medications Medication SIG (Take, Route, Frequency, Duration) Notes Start Date End Date Status Finasteride Active Phenytoin 100 mg Orally Three times a day Active Complex B-100 Active Folic Acid Active vitamin Active Lisinopril & Diet Manage Prod Active Problems Problem Type SNOMED Code ICD Code Onset Dates Problem Status W/U Status Risk Notes Problem Neurofibromatos is, 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, 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 (19071861863388 102) Congenital pes planus, right foot (Q66.51) Active confirmed Problem Congenital pes planus of left foot (60279281134038 103) Congenital pes planus, left foot (Q66.52) Active confirmed Plan Of Treatment No Information Insurance Providers Payer Name Payer Address Payer Phone Subscriber Number Group Number Insured Name Patient Relationship to Insured Coverage Start Date Coverage End Date [employer] [address] [place] [id number] [phone] [id number] Nayan Aly Self - patient is the insured do not use [address] [address] [id number] Nayan lAy Self - patient is the insured Medical (General) History Medical History History ICD Code Neurofibromatosis 1 mumps measles chicken pox hypertension epilepsy Back,Hip,and Knee pain Seizures Surgical History Surgery Date(Month/Year) ankle surgery 2002 leg surgery 2002 fibroid removal 2010
== END 2025-05-12 14:14 | disposition home or self-care (01) ==
LOC: HO.HMCC 12:50
PROVIDERS: PCP Nurse Practitioner Family; Visit Provider Nurse Practitioner Family
DX: R31.9 Hematuria, unspecified (principal); H61.23 Impacted cerumen, bilateral

== ENCOUNTER → 2025-05-12 12:49 | Outpatient (BNVA) | payer MEDICARE, SELFPAY | PROVIDERS: PCP Nurse Practitioner Family; Visit Provider Nurse Practitioner Family | DX: H61.23 Impacted cerumen, bilateral (principal); R31.9 Hematuria, unspecified; L82.1 Other seborrheic keratosis; Z13.31 Encounter for screening for depression; Z13.39 Encounter for screening examination for other mental health and behavioral disorders; R26.89 Other abnormalities of gait and mobility | CPT/HCPCS: 69209; 96127; 99212 ==